=== PATIENT | male | born 1985 | race African-American/Black ===

== ENCOUNTER 2024-05-23 16:49 | Inpatient (IN) | payer OTHER, SELFPAY ==
[2024-05-23 13:40] VITALS: BMI 29.3
[2024-05-23 13:46] VITALS: BP 148/78
[2024-05-23] MEDS: ATIVAN 1 MG IV (13:58)
[2024-05-23] MEDS: HALDOL 2.5 MG IM (13:59)
[2024-05-23 14:00] VITALS: BP 128/66
[2024-05-23] MEDS: NSS 1000 IV ×2 (14:00→18:37)
[2024-05-23] MEDS: OFIRMEV 1000 MG IV (14:06)
[2024-05-23 14:12] LABS: % Basophils 0.3 % (0-2); % Immature Granulocytes 0.6 % (0-0.5); % Lymphocytes 2.6 % (20.5-51.1); % Neutrophils 88.5 % (42.2-75.2); Absolute Basophils 0.1 10^3/uL (0-0.2); Absolute Immature Granulocytes 0.1 10^3/uL (0-0.05); Absolute Lymphocytes 0.5 10^3/uL (1.2-3.4); Absolute Monocytes 1.6 10^3/uL (0.1-0.6); Hemoglobin 12.2 g/dL (13.0-18.0); Mean Corp Hgb Conc. 34.9 g/dL (33.0-37.0); Mean Corpuscular Hgb 29.4 pg (27.0-31.0); Mean Corpuscular Volume 84.3 fL (80.0-94.0); Mean Platelet Volume 10.6 fL (7.4-10.4); Nucleated Red Blood Cells % 0 % (-); Platelet Count 249 10^3/uL (130-400); Red Blood Cell Count 4.15 10^6/uL (4.70-6.10); Red Cell Dist. Width 12.8 % (11.5-14.5); White Blood Cell Count 20.3 10^3/uL (4.8-10.8)
[2024-05-23 14:24] LABS: Lactic Acid 2.5 mmol/L (0.7-2.0)
[2024-05-23 14:24] LABS: ALT (SGPT) 133 U/L (0-50); AST (SGOT) 248 U/L (17-59); Albumin 4.3 g/dl (3.5-5.0); Alkaline Phosphatase 61 U/L (38-126); Blood Urea Nitrogen 33 mg/dl (9-20); Calcium 9.3 mg/dl (8.4-10.2); Carbon Dioxide 23 mmol/L (22-30); Chloride 100 mmol/L (98-107); Estimated Creatinine Clearance 83 ml/min; Glucose 83 mg/dl (70-99); Potassium 4.3 mmol/L (3.5-5.1); Sodium 139 mmol/L (135-145); Total Bilirubin 1.8 mg/dl (0.2-1.3); Total Protein 6.7 g/dl (6.3-8.2); eGFR > 60.00
[2024-05-23 14:54] LABS: COVID-19 Antigen Negative (Negative)
[2024-05-23 15:00] VITALS: BP 119/62
--- NOTE | 2024-05-23 15:01 | ED.GENMED ---
History of Present Illness
<Suleman Miranda Jr., PA-C - Last Filed: 05/27/24 15:01>
General
Chief Complaint: Change in Mental Status
Source: police
Exam Limitations: clinical condition and altered mental status
Time Seen by Provider: 05/23/24 13:57
Nursing documentation reviewed up to this point in time: agreed with
History of Present Illness
History of Present Illness:
39-year-old male coming from long term with altered mental status. No significant medical history is known about the patient. Apparently has been acting very odd since arrival to the long term yesterday has been drinking out of his toilet and drinking
his own urine. He otherwise has not been responding or interacting appropriately per staff. They did notice some swelling to his right hand and left ankle otherwise.
Review of Systems
<Suleman Miranda Jr., PA-C - Last Filed: 05/27/24 15:01>
Review of Systems
Unable to obtain full review of systems at this time due to: other (Current medical state)
All Other Systems: ROS reviewed and negative except as documented in HPI and ROS
Phy Exam
<Suleman Miranda Jr., PA-C - Last Filed: 05/27/24 15:01>
Physical Exam
Physical Exam:
GENERAL: Not responding verbally rejecting to pain airways protected
EYE: pupils equal and reactive
NECK: Supple, no significant adenopathy.
ENT: o/p clr, mmm.
CARDIAC: Regular rate and rhythm .
LUNGS: Clear breath sounds bilaterally, no acute respiratory distress, no wheezes/rales/rhonchi
ABDOMEN: Soft,
NEUROLOGICAL: Not alert or oriented but patient is awake
SKIN: Redness and warmth to his right hand extending to the proximal forearm as well as the left ankle extending to the distal morgan region, otherwise skin is warm and dry, skin intact.
MUSCULOSKELETAL: well perfused.
Sepsis
<Suleman Miranda Jr., PA-C - Last Filed: 05/27/24 15:01>
Sepsis Screening
Sepsis Assessment: Sepsis
Sepsis Screen
Sepsis Screen: Sepsis
Date: 05/27/24
Time: 15:01
Course
<Suleman Miranda Jr., PA-C - Last Filed: 05/27/24 15:01>
Orders/Labs/Results
Orders:
Orders
05/23/24 13:38
EKG- Treatment ONCE
05/23/24 13:39
CBC/With Diff [Complete Blood Count/With Diff] Urgent
CMP [Comprehensive Metabolic Panel] Urgent
Creatine Phosphokinase Urgent
05/23/24 13:54
Haloperidol Lactate [Haldol] 5 mg .ROUTE .STK-MED ONE
Lorazepam [Ativan] 2 mg .ROUTE .STK-MED ONE
05/23/24 13:55
Lactic Acid Urgent
05/23/24 13:57
CT Head W/o Iv Contrast Urgent
Comment:
Reason For Exam: aMS
Haloperidol Lactate [Haldol] 2.5 mg IM NOW STA
Lorazepam [Ativan] 1 mg IV NOW STA
Chest X-ray Portable [CR Chest Portable - 1 View] Urgent
Comment:
Reason For Exam: fever
Reason Study Needs to be Portable: Patient Unstable
05/23/24 13:58
0.9% Sodium Chloride 1000 ml [Nss] 1,000 ml IV BOLUS
05/23/24 14:03
Blood Culture Routine
AYAAN Source: Blood/Venous
Specimen Description:
Blood Culture Urgent
AYAAN Source: Blood/Venous
Specimen Description:
05/23/24 14:05
Acetaminophen 1000MG/100Ml [Ofirmev] 1,000 mg in 100 ml .ROUTE .STK-MED
05/23/24 14:06
Acetaminophen 1000MG/100Ml [Ofirmev] 1,000 mg IV NOW STA
05/23/24 14:07
COVID-19 Antigen Urgent
Source: Nasal Swab
Influenza A+B Rapid Molecular Urgent
AYAAN Source: Nasal Swab
Specimen Description:
05/23/24 14:13
Haloperidol Lactate [Haldol] 2.5 mg IM NOW STA
Lorazepam [Ativan] 1 mg IV NOW STA
05/23/24 14:53
Cefepime HCl [Maxipime] 2,000 mg IV NOW STA
05/23/24 Dinner
Regular
At Your Request: Full Participation
05/23/24 15:09
Urinalysis Reflex To Culture Urgent
Date Specimen was Collected: 05/23/24
Time Specimen was Collected: 14:36
Urine Drug Abuse Screen Urgent
Date Specimen was Collected: 05/23/24
Time Specimen was Collected: 14:36
Urine Microscopic Reflex Cult Urgent
05/23/24 15:32
Vancomycin [Vancocin] 2,000 mg 0.9% Sodium Chloride 500 ml [Nss] 500 ml IV NOW
05/23/24 16:27
Admit/Transfer Patient As Directed
Co-Sign Provider:
Level of Care: Inpatient admission
Assign to:: Telemetry
Physician / Group: Joseph
Diagnosis: Sepsis
Reason for Telemetry: Arrhythmia
Date to Stop Telemetry: 05/26/24
Time to Stop Telemetry: 11:00
Reason for Hospitalization: IV abx
Expected length of stay greater than two midnights?: Yes
ELOS- Estimated Length of Stay in days: 3
I certify the patient meets the requirements for IP care: Yes
Code Status As Directed
Resuscitation Status: Full Code
PRN Pain Medication Management As Directed
May give lesser potent ordered pain med per pt: Yes
preference::
Protocol:: Medication orders for pain may be administered in a
manner that supports deferring to patient preference
when the pt is:
- Requesting an ordered lesser potent pain medication.
Least to most potent pain medications are defined
as: acetaminophen < NSAID < tramadol < opioids
(morphine, oxycodone, hydromorphone).
- Requesting a lesser dose of the same medication IF
ORDERED.
- Requesting a less intrusive route of administration
if both routes are prescribed by the provider (PO <
IV).
05/23/24 17:28
0.9% Sodium Chloride 1000 ml [Nss] 1,000 ml IV 125 mls/hr
Acetaminophen [Tylenol/Feverall] 650 mg RECTAL Q4HPRN PRN
Acetaminophen [Tylenol] 650 mg PO Q4HPRN PRN
Haloperidol Lactate [Haldol] 1 mg IV Q4HPRN PRN
05/23/24 17:28
Activity As Directed
Activity Level: Bedrest
Intake/ Output As Directed
Frequency: Per unit guidelines
Vital Signs As Directed
Frequency: Per unit guidelines
Weight As Directed
Frequency: Once
DX Deep Vein Thrombosis Video Routine
05/23/24 18:00
Enoxaparin Sodium [Lovenox] 40 mg SC QPM
05/23/24 19:51
Lactic Acid Routine
05/23/24 22:00
Quetiapine Fumarate [Seroquel] 75 mg PO HS
05/24/24 00:00
Cefepime HCl [Maxipime] 2,000 mg IV Q8H
05/24/24 05:52
Complete Blood Count/No Diff IN AM
Comprehensive Metabolic Panel IN AM
05/26/24 11:00
DC Protocol for Telemetry ONCE
Abnormal Lab Results
05/23/24 05/23/24 05/23/24
13:39 13:55 15:09
WBC 20.3 H 10^3/uL
(4.8-10.8)
RBC 4.15 L 10^6/uL
(4.70-6.10)
Hgb 12.2 L g/dL
(13.0-18.0)
Hct 35.0 L %
(39.0-52.0)
MPV 10.6 H fL
(7.4-10.4)
Abs Immat Gran (auto) 0.1 H 10^3/uL
(0-0.05)
Absolute Neuts (auto) 18.0 H 10^3/uL
(1.4-6.5)
Absolute Lymphs (auto) 0.5 L 10^3/uL
(1.2-3.4)
Absolute Monos (auto) 1.6 H 10^3/uL
(0.1-0.6)
Immature Gran % 0.6 H %
(0-0.5)
Neutrophils % 88.5 H %
(42.2-75.2)
Lymphocytes % 2.6 L %
(20.5-51.1)
BUN 33 H mg/dl
(9-20)
Lactic Acid 2.5 H mmol/L
(0.7-2.0)
Total Bilirubin 1.8 H mg/dl
(0.2-1.3)
AST 248 H U/L
(17-59)
ALT 133 H U/L
(0-50)
Creatine Kinase 9897 H U/L
(55-170)
Urine Ketones 3+ A
(Negative)
Ur Occult Blood Reflex 2+ A
(Negative)
U Marijuana (THC) Screen Positive H
(Negative)
05/23/24 13:39
05/23/24 13:39
Vital Signs
Initial and Last Documented VS:
Initial Vital Signs
Temp Pulse Resp Pulse Ox
100.7 F H 132 17 99
05/23/24 13:40 05/23/24 13:40 05/23/24 13:40 05/23/24 13:40
Last Documented Vital Signs
Temp Pulse Resp BP Pulse Ox
97.8 F 98 16 125/83 100
05/27/24 14:05 05/27/24 14:05 05/27/24 14:05 05/27/24 14:05 05/27/24 14:05
<Genaro Garsia, DO - Last Filed: 05/23/24 15:27>
Orders/Labs/Results
Orders:
Orders
05/23/24 13:38
EKG- Treatment ONCE
05/23/24 13:39
CBC/With Diff [Complete Blood Count/With Diff] Urgent
CMP [Comprehensive Metabolic Panel] Urgent
Creatine Phosphokinase Urgent
05/23/24 13:54
Haloperidol Lactate [Haldol] 5 mg .ROUTE .STK-MED ONE
Lorazepam [Ativan] 2 mg .ROUTE .STK-MED ONE
05/23/24 13:55
Lactic Acid Urgent
05/23/24 13:57
CT Head W/o Iv Contrast Urgent
Comment:
Reason For Exam: aMS
Haloperidol Lactate [Haldol] 2.5 mg IM NOW STA
Lorazepam [Ativan] 1 mg IV NOW STA
Chest X-ray Portable [CR Chest Portable - 1 View] Urgent
Comment:
Reason For Exam: fever
Reason Study Needs to be Portable: Patient Unstable
05/23/24 13:58
0.9% Sodium Chloride 1000 ml [Nss] 1,000 ml IV BOLUS
05/23/24 14:03
Blood Culture Routine
AYAAN Source: Blood/Venous
Specimen Description:
Blood Culture Urgent
AYAAN Source: Blood/Venous
Specimen Description:
05/23/24 14:05
Acetaminophen 1000MG/100Ml [Ofirmev] 1,000 mg in 100 ml .ROUTE .STK-MED
05/23/24 14:06
Acetaminophen 1000MG/100Ml [Ofirmev] 1,000 mg IV NOW STA
05/23/24 14:07
COVID-19 Antigen Urgent
Source: Nasal Swab
Influenza A+B Rapid Molecular Urgent
AYAAN Source: Nasal Swab
Specimen Description:
05/23/24 14:13
Haloperidol Lactate [Haldol] 2.5 mg IM NOW STA
Lorazepam [Ativan] 1 mg IV NOW STA
05/23/24 14:53
Cefepime HCl [Maxipime] 2,000 mg IV NOW STA
05/23/24 Dinner
Regular
At Your Request: Full Participation
05/23/24 15:09
Urinalysis Reflex To Culture Urgent
Date Specimen was Collected: 05/23/24
Time Specimen was Collected: 14:36
Urine Drug Abuse Screen Urgent
Date Specimen was Collected: 05/23/24
Time Specimen was Collected: 14:36
Urine Microscopic Reflex Cult Urgent
05/23/24 15:32
Vancomycin [Vancocin] 2,000 mg 0.9% Sodium Chloride 500 ml [Nss] 500 ml IV NOW
05/23/24 16:27
Admit/Transfer Patient As Directed
Co-Sign Provider:
Level of Care: Inpatient admission
Assign to:: Telemetry
Physician / Group: Joseph
Diagnosis: Sepsis
Reason for Telemetry: Arrhythmia
Date to Stop Telemetry: 05/26/24
Time to Stop Telemetry: 11:00
Reason for Hospitalization: IV abx
Expected length of stay greater than two midnights?: Yes
ELOS- Estimated Length of Stay in days: 3
I certify the patient meets the requirements for IP care: Yes
Code Status As Directed
Resuscitation Status: Full Code
PRN Pain Medication Management As Directed
May give lesser potent ordered pain med per pt: Yes
preference::
Protocol:: Medication orders for pain may be administered in a
manner that supports deferring to patient preference
when the pt is:
- Requesting an ordered lesser potent pain medication.
Least to most potent pain medications are defined
as: acetaminophen < NSAID < tramadol < opioids
(morphine, oxycodone, hydromorphone).
- Requesting a lesser dose of the same medication IF
ORDERED.
- Requesting a less intrusive route of administration
if both routes are prescribed by the provider (PO <
IV).
05/23/24 17:28
0.9% Sodium Chloride 1000 ml [Nss] 1,000 ml IV 125 mls/hr
Acetaminophen [Tylenol/Feverall] 650 mg RECTAL Q4HPRN PRN
Acetaminophen [Tylenol] 650 mg PO Q4HPRN PRN
Haloperidol Lactate [Haldol] 1 mg IV Q4HPRN PRN
05/23/24 17:28
Activity As Directed
Activity Level: Bedrest
Intake/ Output As Directed
Frequency: Per unit guidelines
Vital Signs As Directed
Frequency: Per unit guidelines
Weight As Directed
Frequency: Once
DX Deep Vein Thrombosis Video Routine
05/23/24 18:00
Enoxaparin Sodium [Lovenox] 40 mg SC QPM
05/23/24 19:51
Lactic Acid Routine
05/23/24 22:00
Quetiapine Fumarate [Seroquel] 75 mg PO HS
05/24/24 00:00
Cefepime HCl [Maxipime] 2,000 mg IV Q8H
05/24/24 05:52
Complete Blood Count/No Diff IN AM
Comprehensive Metabolic Panel IN AM
05/26/24 11:00
DC Protocol for Telemetry ONCE
Abnormal Lab Results
05/23/24 05/23/24 05/23/24
13:39 13:55 15:09
WBC 20.3 H 10^3/uL
(4.8-10.8)
RBC 4.15 L 10^6/uL
(4.70-6.10)
Hgb 12.2 L g/dL
(13.0-18.0)
Hct 35.0 L %
(39.0-52.0)
MPV 10.6 H fL
(7.4-10.4)
Abs Immat Gran (auto) 0.1 H 10^3/uL
(0-0.05)
Absolute Neuts (auto) 18.0 H 10^3/uL
(1.4-6.5)
Absolute Lymphs (auto) 0.5 L 10^3/uL
(1.2-3.4)
Absolute Monos (auto) 1.6 H 10^3/uL
(0.1-0.6)
Immature Gran % 0.6 H %
(0-0.5)
Neutrophils % 88.5 H %
(42.2-75.2)
Lymphocytes % 2.6 L %
(20.5-51.1)
BUN 33 H mg/dl
(9-20)
Lactic Acid 2.5 H mmol/L
(0.7-2.0)
Total Bilirubin 1.8 H mg/dl
(0.2-1.3)
AST 248 H U/L
(17-59)
ALT 133 H U/L
(0-50)
Creatine Kinase 9897 H U/L
(55-170)
Urine Ketones 3+ A
(Negative)
Ur Occult Blood Reflex 2+ A
(Negative)
U Marijuana (THC) Screen Positive H
(Negative)
05/23/24 13:39
05/23/24 13:39
Vital Signs
Initial and Last Documented VS:
Initial Vital Signs
Temp Pulse Resp Pulse Ox
100.7 F H 132 17 99
05/23/24 13:40 05/23/24 13:40 05/23/24 13:40 05/23/24 13:40
Last Documented Vital Signs
Temp Pulse Resp BP Pulse Ox
97.8 F 98 16 125/83 100
05/27/24 14:05 05/27/24 14:05 05/27/24 14:05 05/27/24 14:05 05/27/24 14:05
<Suleman Miranda Jr., PA-C - Last Filed: 05/27/24 15:01>
MDM/Problems Addressed
MDM/Problems Addressed:
39-year-old male presenting to the emergency department today with long term guards with concerns of altered mental status drinking his own urine in his cell they have they are unsure of any specific medical conditions or medical history or daily
medications. They believe he may be schizophrenic. Upon arrival he is agitated not giving any further history. Initially tachycardic was given fluids started on IV antibiotics concerning elevated white count and febrile. Patient does have
significant redness and swelling to the right hand extending into the forearm and is rejecting the pain when palpating the area. Concern for cellulitis. Potentially patient source of infection. Otherwise patient will need to be admitted for
further monitoring and treatment.
<Suleman Miranda Jr., PA-C - Last Filed: 05/27/24 15:01>
*Critical Care Note
Total Time (30-74mins, 75-104mins- exclusive of procedures): Not Applicable
ED Attending Note
<Suleman Miranda Jr., PA-C - Last Filed: 05/27/24 15:01>
-
Portions of this chart may have been created with voice recognition software.� Occasional wrong word or��sound alike� substitutions may have occurred due to the inherent limitations of voice recognition software.
<Genaro Garsia, DO - Last Filed: 05/23/24 15:27>
ED Attending Note
Patient seen and examined by attending physician: Yes
I performed the substantive portion of visit, reviewed & personally made and approve the management plan that is documented in note by myself or GERARD.: Yes
ED Attending Note:
I have seen and evaluated the patient with a [id number] encounter. I have spoken to the advance practicer provider and involved in the medical history, the physical exam, medical decision making.
Evaluation and management service: agree unless noted differently below.
Results interpretation: agree unless noted differently below.
Focused HPI: 39-year-old male presenting from long term for evaluation of altered mental status. Patient could be febrile. Per the long term guards, he came to the facility last night. This change appears to be acute
Physical exam: Patient initially came in agitated. He eventually received sedation. He has no meningismus. Abdomen soft. Tenderness localized to right arm where there is signs of cellulitis
Medical Decision Making: Difficult to decipher whether this was excited delirium and hypothermia or true infection. Regardless, patient started antibiotics to cover the hand cellulitis. Will admit given his agitation and altered mental status
Discharge Plan
Departure
Patient Disposition: Admit
Date of Disposition: 05/23/24
Time of Disposition: 15:25
Admit to: IMU
Admit to doctor: Joseph
Presentation/result/management discussed w/ accepting MD/DO: Hospitalist
Patient with high blood pressure during this ER visit?: No
Condition: Fair
Covid-19: Not Applicable
Discharge Problem:
AMS (altered mental status), Sepsis, Cellulitis of arm, right
Interventions
Interventions:
*Risk Screen - Suicide Last Done: 05/23/24 13:40
*General Assessment Last Done: 05/23/24 13:40
*Neglect/Abuse Screening Last Done: 05/23/24 13:40
ED- Fall Risk Assessment Last Done: 05/23/24 13:45
*ED COVID-19 Vaccine History Last Done: 05/23/24 14:37
*Nursing Disposition Last Done: 05/23/24 17:20
ED- Neurological Assessment Last Done: 05/23/24 13:45
ED- Cardiac Assessment Last Done: 05/23/24 13:45
Discharge Date and Time
Discharge Date/Time: 05/23/24 17:20
[2024-05-23 15:17] LABS: Urine Albumin Trace (Neg - Trace); Urine Bilirubin Negative (Negative); Urine Character Clear (Clear); Urine Color Yellow; Urine Glucose Negative (Negative); Urine Ketone 3+ (Negative); Urine Leukocyte Negative (Negative); Urine Nitrite Negative (Negative); Urine Occult Blood 2+ (Negative); Urine Specific Gravity 1.025 (<1.030); Urine Urobilinogen Negative (Neg - 1+)
[2024-05-23] MEDS: MAXIPIME 2000 MG IV (15:27)
[2024-05-23 15:28] LABS: Urine Red Blood Cell 0-2 /HPF (0-2)
--- NOTE | 2024-05-23 15:58 | HPS.HSE ---
Family Physician
-
Family Physician: Facility [facility]
Chief Complaint
-
Change in mental status
History of Present Illness
Patient is a 39 y/o male with unknown past medical history who presents from custodial with an acute change in mental status. Patient arrived at [facility] on May 20. Since that time has been exhibiting odd behaviors. Today he was
found by guards to be drinking out of the toilet, and drinking his own urine. He appeared to be reacting to internal stimuli. He received Versed from EMS, as well as Haldol and Ativan in the ED due to agitation, and upon my evaluation is unable to
provide any history. Upon arrival to the emergency department he was found to have a fever, and blood work revealed at leukocytosis. Hospitalists group was asked to evaluate the patient for admission to the hospital.
Medical History
Past Medical History
Past Medical History: Reports Other (Unable to obtain)
Past Surgical History: Reports Other (Unable to obtain)
Social History
Unable to obtain full social history at this time due to: Patient Non-verbal (Patient non-verbal with me)
Family History
Family History: Unable to Obtain
Allergies / Home Medications
Allergies reflects when Allergies were last updated in [employer].
Home Medications with original date entered in [employer]
Allergy/Medication List:
Allergies
Allergy/AdvReac Type Severity Reaction Status Date / Time
No Known Allergies Allergy Unverified 05/23/24 13:57
Home Medications
quetiapine 50 mg tablet 75 mg PO HS 05/23/24
Review of Systems
-
Unable to obtain full review of systems at this time due to: Patient Non-verbal
Physical Exam
Vital Signs
Vital Signs
Temp Pulse Resp BP Pulse Ox
100.7 F H 114 40 128/66 98
05/23/24 13:40 05/23/24 14:30 05/23/24 14:30 05/23/24 14:00 05/23/24 13:44
Physical Exam
General: Well Developed and Well Nourished
HEENT: Anicteric and Moist mucous membranes
Respiratory: Clear and Non Labored Respirations
Cardiac: S1/S2, Regular Rhythm and Tachycardia
GI: Soft and Non Tender
Rectal: Deferred by Provider
Musculoskeletal: No Clubbing, No Cyanosis and Other (Edema of Right Hand, and Left Foot/Ankle)
Skin: Warm, Dry and Other (Right hand erythema expending up to mid forearm with increased warmth to touch; Left foot and ankle also with increased warmth compared to right ankle)
Neuro: Other (Patient initially calm with eyes closed, when I attempt to wake him he becomes very restless and not following commands)
Laboratory Results
-
05/23/24 13:39
05/23/24 13:39
Laboratory Results
Lactic Acid Cancelled 05/23/24 13:57
Total Bilirubin 1.8 mg/dl (0.2-1.3) H 05/23/24 13:39
AST 248 U/L (17-59) H 05/23/24 13:39
ALT 133 U/L (0-50) H 05/23/24 13:39
Alkaline Phosphatase 61 U/L (38-126) 05/23/24 13:39
Data Reviewed
-
Lab Data: Labs Reviewed by me
Impression/Plan
-
Sepsis appears to be secondary to right arm cellulitis, possible left ankle cellulitis
-Continue vancomycin and cefepime
-Await blood cultures
Altered Mental Status, possible TME from infection vs chronic psychiatric illness
-Consult Psych
-Continue Seroquel at bedtime
-Continue Haldol prn for agitation
Abnormal LFTS
-Check Hepatitis Labs
-Check Abd US
-Recheck LFTs in AM
DVT proph: Lovenox
Code Status: Full Code
[2024-05-23] MEDS: VANCOCIN 540 MG IV (16:17)
[2024-05-23 16:22] LABS: Amphetamines Negative (Negative); Barbiturates Negative (Negative); Benzodiazepines Negative (Negative); Buprenorphine Negative (Negative); Cocaine Negative (Negative); Marijuana Positive (Negative); Methadone Negative (Negative); Methamphetamines Negative (Negative); Opiates Negative (Negative); Phencyclidine Negative (Negative); Tricyclic Antidepressants Negative (Negative)
--- NOTE | 2024-05-23 16:59 | W.PN.UPDATE ---
Addendum entered and electronically signed by Sean Ruiz MD 05/23/24 22:52:
CK of 9800 indicating rhabdomyolysis likely explaining transaminitis. IV fluid rate increased. Recheck CK.
Original Note:
Update Note
Progress Note Update
This is an addendum to the H&P written by Soraya Contreras on 05/23/2024. Patient seen and examined independently with PA.
39-year-old male medical history unknown presenting from intermediate, for altered mental status. He has been acting odd/drinking all the toilet drinking his own urine, walking around naked and responding to internal stimuli and reaching for things. He
was noted to have right forearm and hand swelling and left ankle swelling, redness.
Patient is febrile, tachycardic with significant leukocytosis. He is septic secondary to right upper extremity/left lower extremity cellulitis.
Labs also show lactic acidosis, transaminitis. Urinalysis unremarkable. UDS positive for marijuana. Check hepatitis panel, CK level. Check liver ultrasound.
Patient with likely schizophrenia. Continue Seroquel. As needed Haldol. Psychiatry consulted. CT head shows no acute abnormality.
[2024-05-23 17:46] LABS: Creatine Phosphokinase 9897 U/L (55-170)
[2024-05-23 17:49] VITALS: BP 119/83
[2024-05-23] MEDS: LOVENOX 40 MG SC (18:55)
[2024-05-23 19:20] VITALS: BP 131/65
--- NOTE | 2024-05-23 19:58 | PTCARENOTE ---
Pt admitted to rm 335 from ED. Pulled over to bed from stretcher. IV Vanco infusing via LFA at time of admission, fluids continued following as ordered. Pt almost lethargic/drowsy, answering occasional yes/no questions. At times also mumbling
nonsensical conversation to himself. VSS. 2 Unable to answer any admission or assessment questions. 2 [facility] guards present and able to assist with some questions, patient shackled to bed. Blisters noted to b/l heels - skin prep applied. Tele box
placed, EKG completed - ST on monitor.
[2024-05-23 20:10] LABS: Lactic Acid 1.8 mmol/L (0.7-2.0)
[2024-05-23] MEDS: VANCOCIN 275 MG IV (21:03)
[2024-05-23] MEDS: SEROQUEL 75 MG PO (21:44)
[2024-05-23 23:06] VITALS: BP 120/56
[2024-05-23] MEDS: OFIRMEV 100 IV (23:17)
[2024-05-24] VITALS (7 sets, daily range): BP systolic 110–143; BP diastolic 58–94
[2024-05-24] MEDS: STERILE WATER FOR INJECTION 10 ML IV ×3 (00:07→17:05)
[2024-05-24] MEDS: MAXIPIME 2000 MG IV ×3 (00:11→17:05)
--- NOTE | 2024-05-24 00:26 | PTCARENOTE ---
Pt. HR sustaining 120s-130s on tele monitor. NICKI Rollins notified. Pt. temp 103.1. New order for offirmev. See MAR. Plan of care ongoing.
[2024-05-24] MEDS: NSS 1000 IV ×3 (01:27→12:43)
[2024-05-24 06:27] LABS: Hematocrit 34.3 % (39.0-52.0); Hemoglobin 11.8 g/dL (13.0-18.0); Mean Corp Hgb Conc. 34.4 g/dL (33.0-37.0); Mean Corpuscular Hgb 29.9 pg (27.0-31.0); Mean Corpuscular Volume 87.1 fL (80.0-94.0); Mean Platelet Volume 10.8 fL (7.4-10.4); Platelet Count 195 10^3/uL (130-400); Red Blood Cell Count 3.94 10^6/uL (4.70-6.10); Red Cell Dist. Width 12.8 % (11.5-14.5); White Blood Cell Count 12.8 10^3/uL (4.8-10.8)
--- NOTE | 2024-05-24 06:41 | W.PN.UPDATE ---
Update Note
Progress Note Update
T to 103.1 overnight with tachycardia. Ofirmiv x1, Vancomycin and Cefepime continue. T improved to 99 this morning.
[2024-05-24 06:44] LABS: ALT (SGPT) 111 U/L (0-50); AST (SGOT) 158 U/L (17-59); Albumin 3.1 g/dl (3.5-5.0); Alkaline Phosphatase 57 U/L (38-126); Blood Urea Nitrogen 18 mg/dl (9-20); Calcium 8.1 mg/dl (8.4-10.2); Carbon Dioxide 24 mmol/L (22-30); Chloride 103 mmol/L (98-107); Estimated Creatinine Clearance 108 ml/min; Glucose 102 mg/dl (70-99); Potassium 4.1 mmol/L (3.5-5.1); Sodium 137 mmol/L (135-145); Total Protein 5.6 g/dl (6.3-8.2); eGFR > 60.00
[2024-05-24 07:03] LABS: Creatine Phosphokinase 5583 U/L (55-170)
[2024-05-24 07:09] LABS: TSH Reflex To Free T4 0.36 uIU/ml (0.47-4.68)
[2024-05-24 07:10] LABS: Hepatitis B Surface Antigen Negative (Negative)
[2024-05-24 07:15] LABS: Hepatitis B Core Ab, IgM Negative (Negative)
[2024-05-24 07:28] LABS: Hepatitis B Core Ab, Total Negative (Negative); Hepatitis B Surface Antibody Positive; Hepatitis C Antibody Negative (Negative)
[2024-05-24 07:39] LABS: Hepatitis A Antibody, Total Positive (Negative)
--- NOTE | 2024-05-24 08:24 | PHA.VAN.FU ---
Vancomycin Assessment / Plan
- Assessment
Renal Function: SCR Decreasing
WBC's are: Trending Down
Concomitant Antimicrobials: cefepime
- Dosing Plan
Adjust Regimen to: Vanc 1500mg Q12H starting at 1800
New Regimen Predicts: AUC (514), Peak (33.3), Trough (12.4)
Dosing Comments: patient with improvement in SCR
- Monitoring Plan
No level(s) ordered at this time: consider levels in next few days
- Follow Up
Pharmacy will continue to follow.
Vancomycin Follow UP
- -
Patient Age: 39
Patient Sex: Male
Vancomycin Day #: 2
Indication: Skin And Soft Tissue
Requesting Provider: Cornelia Contreras
Pertinent Antimicrobial Allergies:
NKDA
Height / Weight:
Height 5 ft 11 in
Actual Weight 95.254 kg
- Vital Signs / Lab Results
Temp Pulse Resp BP Pulse Ox
99.1 F 107 16 118/64 100
05/24/24 08:05 05/24/24 08:05 05/24/24 08:05 05/24/24 08:05 05/24/24 08:05
Lab Results - Hematology
05/23/24 05/24/24
13:39 05:52
WBC 20.3 H 12.8 H
Lab Results - Chemistry
05/23/24 05/24/24
13:39 05:52
BUN 33 H 18
Creatinine 1.3 1.0
Estimated Creat Clear 83 108
Albumin 4.3 3.1 L
05/23/24 05/23/24 05/23/24
13:55 13:57 19:51
Lactic Acid 2.5 H Cancelled 1.8
Lab Results - Urine
05/23/24
15:09
Urine Nitrite (Reflex) Negative
Leukocyte Esterase Rfl Negative
Microbiology Results
05/23/24 14:07 Influenza Types A & B (LELA) - Final
Nasal Swab Negative for Influenza A & B, NAAT
Negative results must be combined with clinical observations
and patient history.
Nucleic Acid Amplification test (NAAT)performed on the
[employer] platform.
[2024-05-24] MEDS: VANCOCIN 275 MG IV (09:21)
--- NOTE | 2024-05-24 11:56 | CM ---
Patient admitted via ED; from [facility]
Chart reviewed: Altered Mental Status; Cellulitis R Arm; febrile overnight w/ Tachycardia; Temp 99 this AM.
Continue to follow and provide updates to [facility]
--- NOTE | 2024-05-24 13:04 | CON.NEURO ---
Consultation
Order
Date of Consultation: 05/24/24
Requesting Provider: Deondre Ballesteros MD
Reason for Consult: encephalopathy
CC: none
HPI: 39-year-old right-handed man who presented to [facility] on 05/23/2024 from [facility] alf with change in behavior. According to correctional guard the patient was found on his bed naked and urinating.
At this time it is still unclear of why he was not present 2 days ago. Mr. Joe does not recall the reasons why he was in the alf. He states that he recalls paying for the next week in the hotel that he was living at.
ER VS: BP 148/78, HR 132, Temperature�38.2-39.5 C
PDMP:no Rxed meds
Labs:labs: WBCs�12.3�12.8, absolute lymphocyte count�0.5, positive THC, ua-positive for ketones, blood; AST�2 48�1 58, ALT 133�111, creatinine kinase 98 97�55 83, free T4�normal, lactic acid 2.5�1.8,
EKG: sinus tachy, QTc Int : [address] head�unremarkable.
Mr. Joe was started on Vancomycin and Cefepime.
PMH: cannabis addiction
PSH: none
SH: collage graduate with a degree in [employer], cannabis 0.5 mg several times a week; denied ETOH use
All:NKDA
ROS: Positive for leg edema, encephalopathy, imbalance.
General: handcuffed. Tremulous.
Cardio: Tachycardic, right more than left leg edema. Left arm edema.
Neuro:
Mental Status: Alert, oriented to self, months, year.Poor attention and mildly impaired comprehension. FOllows requests across midline. No aphasia or hemineglect.
Cranial Nerves: Pupils are equally round and reactive to light. EOMs full. Visual johnson full to confrontation. No ptosis. No nystagmus. Face symmetric. Normal hearing AU. The palate elevated well. SCMs and traps 5/5. Tongue midline. No
dysarthria.
Motor: All limbs are antigravity.
Reflexes: No clonus at the ankles.
Sensory: Limited exam due to poor attention.
Coordination: Limited exam due to restraints.
Gait: deferred
Assessment and Plan:
I. Acute encephalopathy. Differential diagnosis includes infectious versus postictal
II. Rhabdomyolysis.
III. Fever
-Seizure precautions.
-vit B12, ammonia, CK, blood cx
-Continue Thiamine 100 mg QD IV
-Avoid medications, known to lower seizure threshold.
-Brain MRI wo mallorie
-Routine EEG
-CSF(OP/CP, cell count, protein, glucose, encephalitis panel)
-IV acyclovir until HSV PCR is negative.
-ID consult
-DVT prophylaxis.
I personally reviewed all radiology and labs along with past medical records pertinent to current medical problems. Total time spent in patient care is 60 minutes.
Thank you for allowing us to participate in the care of this patient. We will continue to follow. Please do not hesitate to contact us with any questions or concerns.
Subjective/Objective
Subjective Data
Date of Service: May 24, 2024
Objective Data
Vital Signs
Temp Pulse Resp BP Pulse Ox
38.2 C H 115 16 110/67 98
05/24/24 11:29 05/24/24 11:29 05/24/24 11:29 05/24/24 11:29 05/24/24 11:29
Lab Results
05/24/24 05:52
05/24/24 05:52
Sodium 137 mmol/L (135-145) 05/24/24 05:52
Potassium 4.1 mmol/L (3.5-5.1) 05/24/24 05:52
BUN 18 mg/dl (9-20) 05/24/24 05:52
Glucose 102 mg/dl (70-99) H 05/24/24 05:52
Calcium 8.1 mg/dl (8.4-10.2) L 05/24/24 05:52
Ur Buprenorphine Negative (Negative) 05/23/24 15:09
Patient Allergies
No Known Allergies Allergy (Unverified 05/23/24 13:57)
Medications
-
Active Medications
Generic Name Dose Route Start Last Admin
Trade Name Freq PRN Reason Stop Dose Admin
Acetaminophen 650 mg 05/23/24 17:28
Acetaminophen 325 Mg Tablet PO 06/20/24 17:27
Q4HPRN PRN
GRANT/mild pain/temp > 100.4 F
Cefepime HCl 2,000 mg 05/24/24 00:00 05/24/24 09:20
Cefepime Hcl 2,000 Mg/12.5 Ml Vial IV 2,000 mg
Q8H PAT Administration
Enoxaparin Sodium 40 mg 05/23/24 18:00 05/23/24 18:55
Enoxaparin Sodium 40 Mg/0.4 Ml Syringe SC 06/20/24 17:59 40 mg
QPM PAT Administration
Sodium Chloride 1,000 mls @ 125 mls/hr 05/23/24 17:28 05/24/24 12:43
Nss IV 1,000 mls
.Q8H PAT Administration
Vancomycin HCl 1,500 mg/ 300 mls @ 200 mls/hr 05/24/24 18:00
Sodium Chloride 20 ml/ Sodium IV
Chloride Q12H PAT
Protocol
Sodium Chloride 0 flush 05/23/24 18:00
Sodium Chloride 0.9% (Flush) Syringe IV 06/20/24 17:59
PER PROTOCOL PAT
Sterile Water 10 ml 05/24/24 00:00 05/24/24 09:20
Sterile Water For Injection 10 Ml Vial IV 06/21/24 00:00 10 ml
Q8H PAT Administration
Home Medications
�Medication �Instructions �Recorded
quetiapine 50 mg tablet 75 mg PO HS Sleep 05/23/24
Vital Signs and Labs
-
Vital Signs and Labs:
Vital Signs
Temp Pulse Resp BP Pulse Ox
38.2 C H 115 16 110/67 98
05/24/24 11:29 05/24/24 11:29 05/24/24 11:29 05/24/24 11:29 05/24/24 11:29
Lab Results
05/24/24 05:52
05/24/24 05:52
Sodium 137 mmol/L (135-145) 05/24/24 05:52
Potassium 4.1 mmol/L (3.5-5.1) 05/24/24 05:52
BUN 18 mg/dl (9-20) 05/24/24 05:52
Glucose 102 mg/dl (70-99) H 05/24/24 05:52
Calcium 8.1 mg/dl (8.4-10.2) L 05/24/24 05:52
Ur Buprenorphine Negative (Negative) 05/23/24 15:09
Medications
-
Medications:
Generic Name Dose Route Start Last Admin
Trade Name Freq PRN Reason Stop Dose Admin
Acetaminophen 650 mg 05/23/24 17:28
Acetaminophen 325 Mg Tablet PO 06/20/24 17:27
Q4HPRN PRN
GRANT/mild pain/temp > 100.4 F
Cefepime HCl 2,000 mg 05/24/24 00:00 05/24/24 09:20
Cefepime Hcl 2,000 Mg/12.5 Ml Vial IV 2,000 mg
Q8H PAT Administration
Enoxaparin Sodium 40 mg 05/23/24 18:00 05/23/24 18:55
Enoxaparin Sodium 40 Mg/0.4 Ml Syringe SC 06/20/24 17:59 40 mg
QPM PAT Administration
Sodium Chloride 1,000 mls @ 125 mls/hr 05/23/24 17:28 05/24/24 12:43
Nss IV 1,000 mls
.Q8H PAT Administration
Vancomycin HCl 1,500 mg/ 300 mls @ 200 mls/hr 05/24/24 18:00
Sodium Chloride 20 ml/ Sodium IV
Chloride Q12H PAT
Protocol
Sodium Chloride 0 flush 05/23/24 18:00
Sodium Chloride 0.9% (Flush) Syringe IV 06/20/24 17:59
PER PROTOCOL PAT
Sterile Water 10 ml 05/24/24 00:00 05/24/24 09:20
Sterile Water For Injection 10 Ml Vial IV 06/21/24 00:00 10 ml
Q8H PAT Administration
Thiamine HCl 100 mg 05/24/24 14:00
Thiamine (100 Mg/Ml) 2 Ml Vial IV 05/26/24 08:01
DAILY PAT
Home Medications
-
Home Medications
quetiapine 50 mg tablet 75 mg PO HS Sleep 05/23/24
--- NOTE | 2024-05-24 15:47 | W.PN.HOSP.TC ---
Today's Communication/Plan
-
Workup for encephalopathy and sepsis.
Assessment / Plan
Assessment / Plan
Impression:
Acute encephalopathy.
Concern for sepsis
Rhabdomyolysis, nontraumatic.
Mild elevation of transaminases.
Right upper extremity cellulitis.
Plan:
Acute encephalopathy: Toxic versus infectious
Patient presents with behavioral disturbances likely hallucinations, reported possible seizure prior to hospital admission.
Exam with no focal findings.
CT scan of the head with no acute abnormalities
Urine drug screen positive for marijuana
Given persistent fever LP considered, although patient declined.
MRI of the brain
Ammonia level/trend LFTs
EEG.
Unclear why patient is on Seroquel prior to admission. Will hold to avoid oversedation
Neurology input appreciated
Considering empiric acyclovir pending MRI while patient declined LP.
Initiated on thiamine
Sepsis unclear source (fever, elevated white count, altered mental status)
Right upper extremity cellulitis
Noted CPK elevation, although clinically no evidence of compartment syndrome
CT scan with no collection.
Continue current antibiotics
ID consult
Rhabdomyolysis nontraumatic.
? Secondary to seizure.
Continue IV fluids
CPK trending down
Elevated transaminases
Ultrasound with no acute abnormalities
Ammonia level pending
Anticipated Discharge: 24 - 48 hours
Subjective/Interval History
-
Date of Service: May 24, 2024
Objective Data
-
Labs:
Laboratory Results
05/24/24 05/24/24
05:52 13:46
WBC 12.8 H
Hgb 11.8 L
Hct 34.3 L
Plt Count 195 D
PT Pending
INR Pending
Sodium 137
Potassium 4.1
Chloride 103
Carbon Dioxide 24
BUN 18
Creatinine 1.0
Glucose 102 H
Calcium 8.1 L
Total Bilirubin 1.0
AST 158 H
ALT 111 H
Alkaline Phosphatase 57
Vital Signs:
Vital Signs
Temp Pulse Resp BP Pulse Ox
98.5 F 114 22 143/58 98
05/24/24 14:14 05/24/24 14:14 05/24/24 14:14 05/24/24 14:14 05/24/24 14:14
I&O
05/23/24 05/24/24 05/25/24
06:59 06:59 06:59
Intake Total 3300 / 3300
Balance 3300 / 3300
Physical Exam
-
General: Well Developed and No Apparent Distress
HEENT: Normocephalic, Atraumatic and Moist Mucous Membranes
Respiratory: Clear to Auscultation
Cardiac: Regular Rhythm and S1/S2; Negative Murmur, Rub or Gallop
GI: Soft, Nontender, Nondistended and Normal Bowel Sounds; Negative Organomegaly
Rectal: Deferred by Provider
Musculoskeletal: No Clubbing, No Cyanosis and No Edema
Skin: Negative Rash
Neuro: Nonfocal/Grossly Intact
[2024-05-24 16:31] LABS: INR 1.31; PT 16.1 Sec (11.4-14.6)
--- NOTE | 2024-05-24 16:34 | CON.ID ---
Consultation
-
Date/Time Consultation Requested: 05/24/24 13:18
Date/Time Consultation Performed: 05/24/24 16:34
Requesting Provider: Dr Ballesteros
Performing Provider: Dr Murrieta
Reason for Consultation: AMS
Chief Complaint / Past History
Chief Complaint
AMS
History of Present Illness
Mr Joe is a 39 year old male with unknown past medical history [facility] from [facility], today 05/24 found drining from toilet, drinking his own urine and thought to be responding to internal stimuli. EMS used versed, ER
used ativan and haldol for agitation. History on arrival was limited by the condition of the patient. I saw patient on HD two. Reports only drug he uses is marijana. No history of seizures. Denies: headache, neck stiffness, sinus tenderness,
sore throat, cough, shortness of breath, nausea, vomiting, diarrhea, dysuria, new rashes or joing pains. Shows me a small wound on his forearm, superifical - without surrounding erythema, warmth, swelling or significant drainage. No pain in the
arm. Doesnt recall how he got the wound. Was recently living with mom and in hotel. Has not spent significant time outside. Doesnt recall any tick bites or insect bites. Not around any animals.
Since arrival here he has been spiking fevers to a tmax of 103.1, bp stable, wbc initially 20 now 12.8, hgb 11.8, plt 195, L shift noted, no eos present, cr 1.0, t bili 1.0, ast 158, alt 111, alk phos 57, ammonia <9, ck initially 9900 repeat 5500,
UDS + thc, hep a total ab positive, hep b s ab positive, hep C negative, HIV pending, lactic acid initially 2.5 now 1.8, CT head: no acute changes, CXR no acute process, abd US: CT arm: Slightly limited by motion artifacts. No abscess formation or
drainable collection identified. Forearm shows some soft tissue swelling and apparent mild thickening compatible with the given history of cellulitis. AXr no foregin body. MRSA screen pending, influenza negative, blood cultures x2 no growth to date
Past History
Additional Past Medical History:
cannabis use
Past Surgical History: None
Allergy History:
No Known Allergies Allergy (Unverified 05/23/24 13:57)
Medications Reviewed: Yes
Social History
Alcohol: None
Drug: Marijuana
Living: Homeless
Employment: Employed ([employer])
Family History
Family History: Not Pertinent
Review of Systems
Review of Systems
General: Fever and Chills
All systems: All other systems were reviewed and were negative
Vital Signs
Temp Pulse Resp BP Pulse Ox
101.6 F H 111 17 139/94 98
05/24/24 15:48 05/24/24 15:48 05/24/24 15:48 05/24/24 15:48 05/24/24 15:48
Physical Exam
Physical Exam
Constitutional: No Acute Distress
Cardiovascular: Regular Rate and S1/S2; Negative Murmur or Rub
Pulmonary: Clear and Symmetric; Negative Wheezes, Rales or Rhonchi
Gastrointestinal: Soft, Non Tender, Non Distended and Normal Bowel Sounds
Extremities: Other (small wound on his forearm, superficial - without surrounding erythema, warmth, swelling or significant drainage)
Skin: Warm and Dry; Negative Rash or Jaundice
Neurological: AO x 3 and Other (spells world backwards); Negative Meningeal Signs (no photo phobia no neck stiffness)
Psychological: Calm
Lab / Diagnostic Study Results
05/24/24 05:52
05/24/24 05:52
Abs Immat Gran (auto) 0.1 10^3/uL (0-0.05) H 05/23/24 13:39
Absolute Neuts (auto) 18.0 10^3/uL (1.4-6.5) H 05/23/24 13:39
Absolute Lymphs (auto) 0.5 10^3/uL (1.2-3.4) L 05/23/24 13:39
Absolute Monos (auto) 1.6 10^3/uL (0.1-0.6) H 05/23/24 13:39
Absolute Basos (auto) 0.1 10^3/uL (0-0.2) 05/23/24 13:39
Immature Gran % 0.6 % (0-0.5) H 05/23/24 13:39
Neutrophils % 88.5 % (42.2-75.2) H 05/23/24 13:39
Lymphocytes % 2.6 % (20.5-51.1) L 05/23/24 13:39
Monocytes % 8.0 % (1.7-9.3) 05/23/24 13:39
Eosinophils % 0.0 % (0-6) 05/23/24 13:39
Basophils % 0.3 % (0-2) 05/23/24 13:39
PT 16.1 Sec (11.4-14.6) H 05/24/24 16:02
INR 1.31 05/24/24 16:02
Lactic Acid 1.8 mmol/L (0.7-2.0) 05/23/24 19:51
Microbiology Results
Micro:
05/23/24 14:03 Blood Culture - Preliminary
Blood/Venous No Growth in 24 hours- Final report to follow
05/23/24 14:03 Blood Culture - Preliminary
Blood/Venous No Growth in 24 hours- Final report to follow
05/23/24 21:21 MRSA Screen - Pending
Nose
05/23/24 14:07 Influenza Types A & B (LELA) - Final
Nasal Swab Negative for Influenza A & B, NAAT
Negative results must be combined with clinical observations
and patient history.
Nucleic Acid Amplification test (NAAT)performed on the
[employer] platform.
Assessment / Plan
Encephalopathy - appears transient
- oriented, spells world backward, gives a good history and making jokes
- given rapidly improved mental status, LP not currently indicated from ID perspective
- acyclovir was not ordered earlier today and I did not start it myself at this time; I initially started doxycycline however after seeing the patient and seeing his improved mental status I have stopped it
- elevated CK is notable - will follow
- follow blood cultures
- small wound on his forearm, superficial - without surrounding erythema, warmth, swelling or significant drainage; the arm is equal in size and as warm as the CL arm. Im not convinced he has cellulitis at present
- for now will continue vancomycin; stopped cefepime
- follow up HIV screen
- follow clinically
[2024-05-24 16:41] LABS: Ammonia < 9 umol/L (9-30)
[2024-05-24] MEDS: LOVENOX 40 MG SC (17:08)
[2024-05-24] MEDS: VANCOCIN 300 ML IV (17:09)
[2024-05-24] MEDS: VANCOCIN 300 MG IV (17:09)
[2024-05-24] MEDS: THIAMINE INJECTION 100 MG IV (17:14)
[2024-05-24] MEDS: TYLENOL 650 MG PO (17:20)
[2024-05-24 17:33] LABS: HIV Combo Negative (Negative)
--- NOTE | 2024-05-24 17:39 | EEG.RPT ---
Electroencephalogram Report
Recording
Date of EE05/24/24
Type of EEG: Routine
Length of EEG recordin mins
Done with Video Recording: Yes
Patient Status: Inpatient
Recording Conditions: Moving and Combative
Hyperventilation Performed: No
Photic Stimulation Performed: Yes
Report
METHODS
A 21 channel digitized electroencephalogram was performed at [facility]. The 10/20 international system of electrode placement was used. In addition to EEG, the patient was monitored for EKG. The duration of the recording was 23 minutes.
BACKGROUND
During the awake state, with the eyes closed, the background consisted of a normal amplitude,11 Hertz posterior reactive rhythm that attenuated appropriately with eye opening. Beta activity was distributed diffusely with an anterior predominance.
There was a normal anterior-posterior voltage gradient. With eye opening the background activity changed to a low voltage mixture of alpha, beta, and occasional theta range frequencies. There were no significant asymmetries of background activity
noted. Superimposed diffuse excess beta activity was seen frequently.
PHOTIC STIMULATION
Photic stimulation using a step-peacock increase in photic frequency varying from 1-31 Hertz resulted in no driving responses but no appearance of abnormal activity.
ABNORMAL EEG ACTIVITY
This EEG is abnormal due to the presence of superimposed diffuse excess beta activity was seen frequently.
CLINICAL EVENTS
None
INTERPRETATION AND CLINICAL CORRELATION
This EEG is abnormal due to the presence of superimposed diffuse excess beta activity which was seen frequently; this can be seen due to medication side effect. The study was very limited due to the patient's frequent movement resulting in
artifact, during which time underlying seizure activity cannot be definitively ruled out. No clear seizures were noted.
--- NOTE | 2024-05-24 19:09 | CON.MD ---
Consultation - Medical
-
Pt seen at bedside - psychiatry consulted due to change in mental status and bizarre behavior. Is in police custody - was observed drinking from the toilet and his urine, brought to ER for evaluation. While admitted found to have fever of 103,
though this decreased. CK elevated at 9800. On assessment pt was awake and alert - did not remember any of the reported behavior, though did report that he did not have any memory of at least the last several days. Reported being surprised when he
started to come to in the hospital, has no memory of going to hospital or being in custody (though appears quite unbothered by this).
Pt eating avidly throughout interview - able to answer all questions appropriately, fully oriented. Denies all sxs of psychosis and no evidence of such observed. Denies much significant psychiatric hx outside of having court appointed therapy for a
few months - attempted to elucidate underlying reason for needing therapy but pt was quite guarded ab about this and would only say that he did find the therapy helpful. Denies hx of significant depression, anxiety or psychosis however and denies
ever needing to see a psychiatrist or going to an inpatient psychiatric facility.
Of note during interview pts temerature was measured and was 101, though he denied feeling unwell.
Suspect delirium/TME as cause of prior bizarre behavior
MSE: male, moderate eye contact, speech nl rate & rhythm. Mood is good, affect appropriate. Denies si/hi/avh/delusions. Thought process is linear & logical. Memory not formally tested. Insight/judgement fair.
No psychiatric intervention warranted at this time, suspect underlying illness as cause of prior behavior - pt now appears to be clearing
[2024-05-24] MEDS: VIBRAMYCIN 260 MG IV (19:17)
[2024-05-25] MEDS: NSS 1000 IV ×3 (02:25→18:27)
[2024-05-25 03:06] VITALS: BP 130/82
[2024-05-25] MEDS: VANCOCIN 300 ML IV (05:16)
[2024-05-25] MEDS: VANCOCIN 300 MG IV (05:16)
[2024-05-25 07:00] VITALS: BP 144/77
[2024-05-25] MEDS: THIAMINE INJECTION 100 MG IV (09:10)
--- NOTE | 2024-05-25 09:12 | W.PN.HOSP.TC ---
Today's Communication/Plan
-
IVF. Antibiotics. Brain MRI.
Assessment / Plan
Assessment / Plan
Physical exam:
General: Acutely ill
HEENT: Normocephalic, Atraumatic and Moist Mucous Membranes
Respiratory: Clear to Auscultation; Negative Wheezes, Rales or Rhonchi
Cardiac: Regular Rhythm and S1/S2
GI: Soft, Nontender and Nondistended
Musculoskeletal: No Clubbing, No Cyanosis and No Edema
Neuro: Awake, Alert and Oriented
Psych: Calm
A/P:
Impression:
Acute encephalopathy.
Concern for sepsis
Rhabdomyolysis, nontraumatic.
Mild elevation of transaminases.
Right upper extremity cellulitis.
Plan:
Acute encephalopathy: Toxic versus infectious
Patient presents with behavioral disturbances likely hallucinations, reported possible seizure prior to hospital admission.
Exam with no focal findings.
CT scan of the head with no acute abnormalities
Urine drug screen positive for marijuana
Given persistent fever LP considered, although patient declined.
MRI of the brain
Ammonia level/trend LFTs
EEG.
Unclear why patient is on Seroquel prior to admission. Will hold to avoid oversedation
Neurology input appreciated
Considering empiric acyclovir pending MRI while patient declined LP.
Initiated on thiamine
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
Sepsis unclear source (fever, elevated white count, altered mental status)
Right upper extremity cellulitis
Noted CPK elevation, although clinically no evidence of compartment syndrome
CT scan with no collection.
Continue current antibiotics-on doxycycline
ID consult
Rhabdomyolysis nontraumatic.
? Secondary to seizure.
Continue IV fluids
CPK trending down but will follow-up trend
Elevated transaminases
Ultrasound with no acute abnormalities
Ammonia level less than 9
Time spent 55 minutes
Anticipated Discharge: > 48 hours
Subjective/Interval History
-
Date of Service: May 25, 2024
Patient alert. No chest pain or shortness of breath. Still having low-grade fever up to 100.7 Fahrenheit
Objective Data
-
Labs:
Laboratory Results
05/25/24
06:00
WBC Pending
Hgb Pending
Hct Pending
Plt Count Pending
Sodium Pending
Potassium Pending
Chloride Pending
Carbon Dioxide Pending
BUN Pending
Creatinine Pending
Glucose Pending
Calcium Pending
Total Bilirubin Pending
AST Pending
ALT Pending
Alkaline Phosphatase Pending
Vital Signs:
Vital Signs
Temp Pulse Resp BP Pulse Ox
97.7 F 64 14 144/77 99
05/25/24 07:00 05/25/24 07:00 05/25/24 07:00 05/25/24 07:00 05/25/24 07:00
I&O
05/24/24 05/25/24 05/26/24
06:59 06:59 06:59
Intake Total 3300 / 3300 6095 / 6095
Output Total 1450 / 1450
Balance 3300 / 3300 4645 / 4645
[2024-05-25] MEDS: NSS IV (09:16)
--- NOTE | 2024-05-25 10:20 | PHA.VAN.FU ---
Vancomycin Assessment / Plan
- Assessment
Renal Function: No New Labs Today (patient refused labs)
In the past 24 hrs, patient has been: Febrile (Tmax 101.6 05/24/24 at 15:48 axillary, 101.2 05/24 at 17:19 orally, currently afebrile)
- Dosing Plan
Continue: Vancomycin 1500mg IV Q12hr
- Monitoring Plan
No level(s) ordered at this time: Will order levels according to vancomycin dosing protocol
- Follow Up
Pharmacy will continue to follow.
Vancomycin Follow UP
- -
Patient Age: 39
Patient Sex: Male
Vancomycin Day #: 3
Indication: Skin And Soft Tissue
Requesting Provider: Cornelia Contreras
Pertinent Antimicrobial Allergies:
NKDA
Height / Weight:
Height 5 ft 11 in
Actual Weight 95.254 kg
IBW in k.3
Adjusted BW in k.3
Pertinent Past Medical History: Nothing pertinant
- Vital Signs / Lab Results
Temp Pulse Resp BP Pulse Ox
97.7 F 64 14 144/77 99
05/25/24 07:00 05/25/24 07:00 05/25/24 07:00 05/25/24 07:00 05/25/24 07:00
Lab Results - Hematology
05/23/24 05/24/24
13:39 05:52
WBC 20.3 H 12.8 H
Lab Results - Chemistry
05/23/24 05/24/24
13:39 05:52
BUN 33 H 18
Creatinine 1.3 1.0
Estimated Creat Clear 83 108
Albumin 4.3 3.1 L
05/23/24 05/23/24 05/23/24
13:55 13:57 19:51
Lactic Acid 2.5 H Cancelled 1.8
Microbiology Results
05/23/24 21:21 MRSA Screen - Final
Nose No Methicillin Resistant Staphylococcus aureus isolated.
05/23/24 14:03 Blood Culture - Preliminary
Blood/Venous No Growth in 24 hours- Final report to follow
05/23/24 14:03 Blood Culture - Preliminary
Blood/Venous No Growth in 24 hours- Final report to follow
05/23/24 14:07 Influenza Types A & B (LELA) - Final
Nasal Swab Negative for Influenza A & B, NAAT
Negative results must be combined with clinical observations
and patient history.
Nucleic Acid Amplification test (NAAT)performed on the
[employer] platform.
--- NOTE | 2024-05-25 11:25 | W.PN.NEURO.1 ---
Today's Communication / Plan
-
.
Subjective/Objective
Subjective Data
Date of Service: May 25, 2024
24h events: Fever up to 38.4 C on 17:19 on 05/24/2024, minimally hypertensive in the morning, tachycardia has resolved.
Mr. Joe has declined LP.
Brain MRI is pending.
No reports of headaches, change in strength, vision, balance or sensation.
AM labs-pending.
Blood cx-no growth
Routine EEG(05/24/2024)-diffuse excess beta activity.
PMH: cannabis addiction
PSH: none
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
All:NKDA
ROS: Positive for leg edema, encephalopathy, imbalance.
General: in NAD
Cardio: regular rhythm
Neuro:
Mental Status: Alert, oriented to self, location, time. Good attention and comprehension. Follows requests across midline. No aphasia or hemineglect.
Cranial Nerves: Pupils are equally round and reactive to light. EOMs full. Visual johnson full to confrontation. No ptosis. No nystagmus. Face symmetric. Normal hearing AU. The palate elevated well. SCMs and traps 5/5. Tongue midline. No
dysarthria.
Motor: All limbs are antigravity.
Reflexes: No clonus at the ankles.
Coordination: no tremors or myoclonic movements
Gait: deferred
Assessment and Plan:
I. Acute encephalopathy, resolved
II. Rhabdomyolysis.
III. Fever
-Seizure precautions.
-Brain MRI wo mallorie
-ID follow up
-DVT prophylaxis.
I personally reviewed all radiology and labs along with past medical records pertinent to current medical problems. Total time spent in patient care is 35 minutes.
Thank you for allowing us to participate in the care of this patient. We will continue to follow. Please do not hesitate to contact us with any questions or concerns.
Objective Data
Vital Signs
Temp Pulse Resp BP Pulse Ox
36.5 C 64 14 144/77 99
05/25/24 07:00 05/25/24 07:00 05/25/24 07:00 05/25/24 07:00 05/25/24 07:00
PT 16.1 Sec (11.4-14.6) H 05/24/24 16:02
INR 1.31 05/24/24 16:02
Sodium 137 mmol/L (135-145) 05/24/24 05:52
Potassium 4.1 mmol/L (3.5-5.1) 05/24/24 05:52
BUN 18 mg/dl (9-20) 05/24/24 05:52
Glucose 102 mg/dl (70-99) H 05/24/24 05:52
Calcium 8.1 mg/dl (8.4-10.2) L 05/24/24 05:52
Ur Buprenorphine Negative (Negative) 05/23/24 15:09
Patient Allergies
No Known Allergies Allergy (Unverified 05/23/24 13:57)
Vital Signs and Labs
-
Vital Signs and Labs:
Vital Signs
Temp Pulse Resp BP Pulse Ox
36.5 C 64 14 144/77 99
05/25/24 07:00 05/25/24 07:00 05/25/24 07:00 05/25/24 07:00 05/25/24 07:00
PT 16.1 Sec (11.4-14.6) H 05/24/24 16:02
INR 1.31 05/24/24 16:02
Sodium 137 mmol/L (135-145) 05/24/24 05:52
Potassium 4.1 mmol/L (3.5-5.1) 05/24/24 05:52
BUN 18 mg/dl (9-20) 05/24/24 05:52
Glucose 102 mg/dl (70-99) H 05/24/24 05:52
Calcium 8.1 mg/dl (8.4-10.2) L 05/24/24 05:52
Ur Buprenorphine Negative (Negative) 05/23/24 15:09
Medications
-
Medications:
Generic Name Dose Route Start Last Admin
Trade Name Freq PRN Reason Stop Dose Admin
Acetaminophen 650 mg 05/23/24 17:28 05/24/24 17:20
Acetaminophen 325 Mg Tablet PO 06/20/24 17:27 650 mg
Q4HPRN PRN Administration
GRANT/mild pain/temp > 100.4 F
Enoxaparin Sodium 40 mg 05/23/24 18:00 05/24/24 17:08
Enoxaparin Sodium 40 Mg/0.4 Ml Syringe SC 06/20/24 17:59 40 mg
QPM PAT Administration
Sodium Chloride 1,000 mls @ 125 mls/hr 05/23/24 17:28 05/25/24 09:16
Nss IV 05/26/24 23:59 Not Given
.Q8H PAT
Vancomycin HCl 1,500 mg/ 300 mls @ 200 mls/hr 05/24/24 18:00 05/25/24 05:16
Sodium Chloride 20 ml/ Sodium IV 300 mls
Chloride Q12H PAT Administration
Protocol
Sodium Chloride 0 flush 05/23/24 18:00
Sodium Chloride 0.9% (Flush) Syringe IV 06/20/24 17:59
PER PROTOCOL PAT
Thiamine HCl 100 mg 05/24/24 14:00 05/25/24 09:10
Thiamine (100 Mg/Ml) 2 Ml Vial IV 05/26/24 08:01 100 mg
DAILY PAT Administration
Home Medications
-
Home Medications
quetiapine 50 mg tablet 75 mg PO HS Sleep 05/23/24
[2024-05-25 12:00] VITALS: BP 130/78
--- NOTE | 2024-05-25 13:22 | W.PN.UPDATE ---
Update Note
Progress Note Update
39 y/o man from [facility] where he was brought to hospital due to drinking his urine, drinking from toilet and appearing to be hallucinating. Treated with Haldol and Ativan in ED. Found to be febrile, elevated WBC, elevated LFT's. EEG had a lot of
movement artifact. 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 On antibiotic. Has a history of being treated with Risperdal at another group home and record shows history f treatment with Seroquel 75 mg. which
pt. denies ever taking.
He has outpatient therapy. History of marijuana use and apparently arrests due to smoking marijuana (denies dealing, denies use of other drugs). Denies alcohol abuse.
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 Has worked for a [employer], [employer], and now doing [employer] at [employer] in [place]. Was not welcome to return to the motel
where he was staying.
He is alert and pleasant. Oriented to month, year and that it was the end of April, but not day of week. Speech is coherent and appropriate. Mood seems euthymic, but nurse reports he has been grandiose. No physical complaints.
This seems to be delirium secondary to an infection or some other medical cause.
Psychiatry will sign off -- contact us if needed.
[2024-05-25 15:00] VITALS: BP 134/86
--- NOTE | 2024-05-25 15:19 | W.PN.ID1 ---
Date of Service
Date of Service: May 25, 2024
Today's Communication
- started acyclovir
- requested LP, will discuss with patient tomorrow
Assessment / Plan
Encephalopathy - resolved
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
- will start the IV acyclovir and as a medical team we can see if patient becomes agreeable to the lp
- lesion could also be metabolic in nature
- elevated CK is notable - will follow
- follow blood cultures
- small wound on his forearm, superficial - without surrounding erythema, warmth, swelling or significant drainage; the arm is equal in size and as warm as the CL arm. Im not convinced he has cellulitis at present
- restart doxycycline to complete 5 more days
- unclear if vaccinated for hep A vs prior infection; would not pursue further workup at this moment, vaccinated for hep B
- HIV negative
- follow clinically
Chief Complaint
-: Fever
Subjective / Review of Systems
afebrile
bp stable
labs were not done this AM planned for this afternoon
Vital Signs / Physical Exam
Vital Signs
Vital Signs
Temp Pulse Resp BP Pulse Ox
98.7 F 97 16 130/78 97
05/25/24 12:00 05/25/24 12:00 05/25/24 12:00 05/25/24 12:00 05/25/24 12:00
Physical Exam
Constitutional: No Acute Distress
Cardiovascular: Regular Rate and S1/S2; Negative Murmur or Rub
Pulmonary: Clear and Symmetric; Negative Wheezes or Rales
Gastrointestinal: Soft, Non Tender, Non Distended and Normal Bowel Sounds
Skin: Warm and Dry; Negative Rash or Jaundice
Wound: Other (small wound on his forearm, superficial - without surrounding erythema, warmth, swelling or significant drainage)
Neurological: AO x 3
Objective Data
Lab Data
PT 16.1 Sec (11.4-14.6) H 05/24/24 16:02
INR 1.31 05/24/24 16:02
Estimated Creat Clear 108 ml/min 05/24/24 05:52
Lactic Acid 1.8 mmol/L (0.7-2.0) 05/23/24 19:51
Total Bilirubin 1.0 mg/dl (0.2-1.3) 05/24/24 05:52
AST 158 U/L (17-59) H 05/24/24 05:52
ALT 111 U/L (0-50) H 05/24/24 05:52
Alkaline Phosphatase 57 U/L (38-126) 05/24/24 05:52
Most recent labs reviewed.
Micro Results:
05/23/24 14:03 Blood Culture - Preliminary
Blood/Venous No Growth in 48 hours- Final report to follow
05/23/24 14:03 Blood Culture - Preliminary
Blood/Venous No Growth in 48 hours- Final report to follow
05/23/24 21:21 MRSA Screen - Final
Nose No Methicillin Resistant Staphylococcus aureus isolated.
05/23/24 14:07 Influenza Types A & B (LELA) - Final
Nasal Swab Negative for Influenza A & B, NAAT
Negative results must be combined with clinical observations
and patient history.
Nucleic Acid Amplification test (NAAT)performed on the
[employer] platform.
Care Review
Plan reviewed with: Physician (Dr Jian DISLA and Dr Nguyễn IR)
--- NOTE | 2024-05-25 15:51 | W.PN.UPDATE ---
Update Note
Progress Note Update
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
Differential diagnosis includes: infections(herpes), postictal, vascular, neoplastic, toxic)
Plan:
-brain/spinal-MRIs with mallorie
-CTA head to rule out pericallosal artery stenosis/occlusion
-ID follow up
Kiana Umanzor D,
Neurology
[2024-05-25 16:14] LABS: % Basophils 0.3 % (0-2); % Eosinophils 2.5 % (0-6); % Immature Granulocytes 0.4 % (0-0.5); % Lymphocytes 8.3 % (20.5-51.1); % Monocytes 7.5 % (1.7-9.3); Absolute Eosinophils 0.3 10^3/uL (0-0.7); Absolute Lymphocytes 0.8 10^3/uL (1.2-3.4); Absolute Monocytes 0.8 10^3/uL (0.1-0.6); Absolute Neutrophils 8.2 10^3/uL (1.4-6.5); Hematocrit 35.5 % (39.0-52.0); Hemoglobin 12.5 g/dL (13.0-18.0); Mean Corp Hgb Conc. 35.2 g/dL (33.0-37.0); Mean Corpuscular Hgb 30.3 pg (27.0-31.0); Mean Platelet Volume 10.4 fL (7.4-10.4); Nucleated Red Blood Cells % 0 % (-); Platelet Count 231 10^3/uL (130-400); Red Blood Cell Count 4.13 10^6/uL (4.70-6.10); Red Cell Dist. Width 12.7 % (11.5-14.5); White Blood Cell Count 10.1 10^3/uL (4.8-10.8)
[2024-05-25 16:50] LABS: ALT (SGPT) 109 U/L (0-50); AST (SGOT) 119 U/L (17-59); Albumin 3.1 g/dl (3.5-5.0); Alkaline Phosphatase 67 U/L (38-126); Blood Urea Nitrogen 13 mg/dl (9-20); Calcium 8.5 mg/dl (8.4-10.2); Carbon Dioxide 30 mmol/L (22-30); Chloride 103 mmol/L (98-107); Creatine Phosphokinase 3075 U/L (55-170); Estimated Creatinine Clearance 120 ml/min; Glucose 125 mg/dl (70-99); Potassium 4.3 mmol/L (3.5-5.1); Sodium 137 mmol/L (135-145); Total Bilirubin 0.5 mg/dl (0.2-1.3); Total Protein 5.7 g/dl (6.3-8.2); eGFR > 60.00
[2024-05-25 17:43] LABS: Prolactin 13.4 ng/ml (3.7-17.9)
[2024-05-25 18:17] LABS: Vitamin B12 786 pg/ml (239-931)
[2024-05-25] MEDS: ZOVIRAX INJECTION 269 MG IV (18:21)
[2024-05-25] MEDS: LOVENOX 40 MG SC (18:21)
[2024-05-25 19:00] VITALS: BP 141/96
[2024-05-25] MEDS: VIBRAMYCIN 100 MG PO (20:15)
[2024-05-25 23:15] VITALS: BP 129/69
[2024-05-26] MEDS: ZOVIRAX INJECTION 269 MG IV ×3 (02:18→18:40)
[2024-05-26 03:11] VITALS: BP 128/89
[2024-05-26 07:00] VITALS: BP 134/83; BP 137/89
[2024-05-26] MEDS: NSS 1000 IV ×2 (07:17→13:14)
[2024-05-26] MEDS: VIBRAMYCIN 100 MG PO ×2 (08:14→19:33)
[2024-05-26] MEDS: THIAMINE INJECTION 100 MG IV (08:14)
--- NOTE | 2024-05-26 08:40 | W.PN.HOSP.TC ---
Today's Communication/Plan
-
IV acyclovir. Doxycycline. LP. CTA of the head.
Assessment / Plan
Assessment / Plan
Physical exam:
General: Acutely ill
HEENT: Normocephalic, Atraumatic and Moist Mucous Membranes
Respiratory: Clear to Auscultation; Negative Wheezes, Rales or Rhonchi
Cardiac: Regular Rhythm and S1/S2
GI: Soft, Nontender and Nondistended
Musculoskeletal: No Clubbing, No Cyanosis and No Edema
Neuro: Awake, Alert and Oriented
Psych: Calm
A/P:
Impression:
Acute encephalopathy.
Concern for sepsis
Rhabdomyolysis, nontraumatic.
Mild elevation of transaminases.
Right upper extremity cellulitis.
Plan:
Acute encephalopathy: Toxic versus infectious
Patient presents with behavioral disturbances likely hallucinations, reported possible seizure prior to hospital admission.
Exam with no focal findings.
CT scan of the head with no acute abnormalities
Urine drug screen positive for marijuana
Given persistent fever LP considered, although patient declined.
MRI of the brain
Ammonia level/trend LFTs
EEG.
Unclear why patient is on Seroquel prior to admission. Will hold to avoid oversedation
Neurology input appreciated
Considering empiric acyclovir pending MRI while patient declined LP.
Initiated on thiamine
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
Sepsis unclear source (fever, elevated white count, altered mental status)
Right upper extremity cellulitis or viral encephalitis
Noted CPK elevation, although clinically no evidence of compartment syndrome
CT scan with no collection.
Continue current antibiotics-on doxycycline and started on IV acyclovir
Continue IV fluids while on acyclovir
White blood cell count from 20.3 down to 10.1 yesterday and today is pending
ID consult
Discussed with ID and planning to do LP and started on acyclovir
Discussed with neurology and planning to do CTA of the head as well today.
Rhabdomyolysis nontraumatic.
? Secondary to seizure.
Continue IV fluids
CPK trending down but will follow-up trend
CPK from 9897 down to 3075 yesterday, today is pending
Elevated transaminases
Ultrasound with no acute abnormalities
Ammonia level less than 9
Anticipated Discharge: 24 - 48 hours
Subjective/Interval History
-
Date of Service: May 26, 2024
Patient alert. Afebrile today. No headache or neck pain.
Objective Data
-
Labs:
Laboratory Results
05/26/24
06:00
WBC Pending
Hgb Pending
Hct Pending
Plt Count Pending
Sodium Pending
Potassium Pending
Chloride Pending
Carbon Dioxide Pending
BUN Pending
Creatinine Pending
Glucose Pending
Calcium Pending
Total Bilirubin Pending
AST Pending
ALT Pending
Alkaline Phosphatase Pending
Vital Signs:
Vital Signs
Temp Pulse Resp BP Pulse Ox
98.5 F 84 14 137/89 100
05/26/24 07:00 05/26/24 07:00 05/26/24 07:00 05/26/24 07:00 05/26/24 07:00
I&O
05/25/24 05/26/24 05/27/24
06:59 06:59 06:59
Intake Total 6095 / 6095 2220 / 2220
Output Total 1450 / 1450 3850 / 3850
Balance 4645 / 4645 -1630 / -1630
[2024-05-26 11:00] VITALS: BP 134/83
--- NOTE | 2024-05-26 11:57 | W.PN.NEURO.1 ---
Today's Communication / Plan
-
.
Subjective/Objective
Subjective Data
Date of Service: May 26, 2024
24h events: Mr. Joe reports no headache, change in vision, strength. No reported or documented seizures.
The patient was restarted on Acyclovir and started on Doxycycline.
CTA head showed no arteriographic abnormalities are demonstrated.
Brain MRI wo mallorie-cytotoxic lesion of the corpus callosum
No family history of ROD STRAIGHTENER demyelinating diseases.
Routine EEG(05/24/2024)-diffuse excess beta activity.
PMH: cannabis addiction
PSH: none
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
All:NKDA
ROS: neg foe headache, change in vision, edema, chest pain, rash
General: in NAD, restrained. Security guards are in the room.
Cardio: regular rhythm
Neuro:
Mental Status: Alert, oriented to self, location, month, year, not date. Unable to spell world backwards, do serial 7s. Able to name and repear, no hemineglect.
Cranial Nerves: Pupils are equally round and reactive to light. EOMs full. Visual johnson full to confrontation. No ptosis. No nystagmus. Face symmetric. Normal hearing AU. The palate elevated well. SCMs and traps 5/5. Tongue midline. No
dysarthria.
Motor: All limbs are antigravity.
Reflexes: No clonus at the ankles.
Coordination: no tremors or myoclonic movements
Gait: deferred
Assessment and Plan:
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 Differential diagnosis includes: infections, postictal, vascular, neoplastic, toxic.
II. Encephalopathy-clinically improved
III. Fever-resolved
-Seizure precautions.
-Brain, spinal MRI with mallorie
-CSF(OP/CP, HSV, OCB, MBP)
-ID follow up
-Continue Thiamin IV
-DVT prophylaxis.
I personally reviewed all radiology and labs along with past medical records pertinent to current medical problems. Total time spent in patient care is 40 minutes.
Thank you for allowing us to participate in the care of this patient. We will continue to follow. Please do not hesitate to contact us with any questions or concerns.
Objective Data
Vital Signs
Temp Pulse Resp BP Pulse Ox
36.9 C 90 14 134/83 98
05/26/24 11:00 05/26/24 11:00 05/26/24 11:00 05/26/24 11:00 05/26/24 11:00
PT 16.1 Sec (11.4-14.6) H 05/24/24 16:02
INR 1.31 05/24/24 16:02
Sodium 137 mmol/L (135-145) 05/25/24 16:05
Potassium 4.3 mmol/L (3.5-5.1) 05/25/24 16:05
BUN 13 mg/dl (9-20) 05/25/24 16:05
Glucose 125 mg/dl (70-99) H 05/25/24 16:05
Calcium 8.5 mg/dl (8.4-10.2) 05/25/24 16:05
Vitamin B12 786 pg/ml (239-931) 05/25/24 16:05
Ur Buprenorphine Negative (Negative) 05/23/24 15:09
Patient Allergies
No Known Allergies Allergy (Unverified 05/23/24 13:57)
Vital Signs and Labs
-
Vital Signs and Labs:
Vital Signs
Temp Pulse Resp BP Pulse Ox
36.9 C 90 14 134/83 98
05/26/24 11:00 05/26/24 11:00 05/26/24 11:00 05/26/24 11:00 05/26/24 11:00
PT 16.1 Sec (11.4-14.6) H 05/24/24 16:02
INR 1.31 05/24/24 16:02
Sodium 137 mmol/L (135-145) 05/25/24 16:05
Potassium 4.3 mmol/L (3.5-5.1) 05/25/24 16:05
BUN 13 mg/dl (9-20) 05/25/24 16:05
Glucose 125 mg/dl (70-99) H 05/25/24 16:05
Calcium 8.5 mg/dl (8.4-10.2) 05/25/24 16:05
Vitamin B12 786 pg/ml (239-931) 05/25/24 16:05
Ur Buprenorphine Negative (Negative) 05/23/24 15:09
Medications
-
Medications:
Generic Name Dose Route Start Last Admin
Trade Name Freq PRN Reason Stop Dose Admin
Acetaminophen 650 mg 05/23/24 17:28 05/24/24 17:20
Acetaminophen 325 Mg Tablet PO 06/20/24 17:27 650 mg
Q4HPRN PRN Administration
GRANT/mild pain/temp > 100.4 F
Doxycycline Hyclate 100 mg 05/25/24 20:00 05/26/24 08:14
Doxycycline 100 Mg Capsule PO 100 mg
Q12 PAT Administration
Enoxaparin Sodium 40 mg 05/23/24 18:00 05/25/24 18:21
Enoxaparin Sodium 40 Mg/0.4 Ml Syringe SC 06/20/24 17:59 40 mg
QPM PAT Administration
Sodium Chloride 1,000 mls @ 125 mls/hr 05/23/24 17:28 05/26/24 07:17
Nss IV 05/26/24 23:59 1,000 mls
.Q8H PAT Administration
Acyclovir Sodium 950 mg/ 269 mls @ 250 mls/hr 05/25/24 18:00 05/26/24 09:53
Sodium Chloride IV 06/04/24 17:59 269 mls
Q8H PAT Administration
Sodium Chloride 0 flush 05/23/24 18:00
Sodium Chloride 0.9% (Flush) Syringe IV 06/20/24 17:59
PER PROTOCOL PAT
--- NOTE | 2024-05-26 12:50 | W.PN.ID1 ---
Date of Service
Date of Service: May 26, 2024
Today's Communication
c/w acyclovir
discussed LP at length with patient - currently refusing but willing to continue the discussion
Assessment / Plan
Encephalopathy - resolved
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
- c/w IV acyclovir
- discussed LP at length with patient - currently refusing but willing to continue the discussion
- lesion could also be metabolic in nature
- elevated CK is notable - will follow
- follow blood cultures
- small wound on his forearm, superficial - without surrounding erythema, warmth, swelling or significant drainage; the arm is equal in size and as warm as the CL arm. Im not convinced he has cellulitis at present
- restart doxycycline to complete 5 more days
- unclear if vaccinated for hep A vs prior infection; would not pursue further workup at this moment, vaccinated for hep B
- HIV negative
- follow clinically
Chief Complaint
-: Fever
Subjective / Review of Systems
no further katty fevers
bp stable
Vital Signs / Physical Exam
Vital Signs
Vital Signs
Temp Pulse Resp BP Pulse Ox
98.4 F 90 14 134/83 98
05/26/24 11:00 05/26/24 11:00 05/26/24 11:00 05/26/24 11:05/26/24 11:00
Physical Exam
Constitutional: No Acute Distress
Cardiovascular: Regular Rate and S1/S2; Negative Murmur or Rub
Pulmonary: Clear and Symmetric; Negative Wheezes or Rales
Gastrointestinal: Soft, Non Tender, Non Distended and Normal Bowel Sounds
Skin: Warm and Dry; Negative Rash or Jaundice
Neurological: Awake, Alert and Oriented; Negative Meningeal Signs
Objective Data
Lab Data
PT 16.1 Sec (11.4-14.6) H 05/24/24 16:02
INR 1.31 05/24/24 16:02
Estimated Creat Clear 120 ml/min 05/25/24 16:05
Lactic Acid 1.8 mmol/L (0.7-2.0) 05/23/24 19:51
Total Bilirubin 0.5 mg/dl (0.2-1.3) 05/25/24 16:05
AST 119 U/L (17-59) H 05/25/24 16:05
ALT 109 U/L (0-50) H 05/25/24 16:05
Alkaline Phosphatase 67 U/L (38-126) 05/25/24 16:05
Most recent labs reviewed.
Micro Results:
05/23/24 14:03 Blood Culture - Preliminary
Blood/Venous No Growth in 48 hours- Final report to follow
05/23/24 14:03 Blood Culture - Preliminary
Blood/Venous No Growth in 48 hours- Final report to follow
05/23/24 21:21 MRSA Screen - Final
Nose No Methicillin Resistant Staphylococcus aureus isolated.
05/23/24 14:07 Influenza Types A & B (LELA) - Final
Nasal Swab Negative for Influenza A & B, NAAT
Negative results must be combined with clinical observations
and patient history.
Nucleic Acid Amplification test (NAAT)performed on the
[employer] platform.
Care Review
Plan reviewed with: Physician (Dr Ramirez and Dr Villalpando - MED)
[2024-05-26] MEDS: NSS IV (13:12)
[2024-05-26 15:00] VITALS: BP 140/87
[2024-05-26] MEDS: LOVENOX 40 MG SC (18:41)
[2024-05-26 19:00] VITALS: BP 140/84
[2024-05-26] MEDS: NSS (PRESERVATIVE FREE) 0.25 ML IV (21:51)
[2024-05-26] MEDS: ATIVAN 0.5 MG IV (21:51)
[2024-05-26 23:00] VITALS: BP 134/91
--- NOTE | 2024-05-26 23:24 | PTCARENOTE ---
Pt continuously taking off tele monitor leads. Day shift RN documented that pt was taking medication that required tele. This RN could not find a medication that would require pt be on tele. EGG GATHERER made aware, order obtained to take d/c monitor.
--- NOTE | 2024-05-27 01:13 | PTCARENOTE ---
Pt seen to be very restless and constantly moving. Nely Gong made aware, order for ativan obtained. Care ongoing.
--- NOTE | 2024-05-27 01:21 | PTCARENOTE ---
Pt has two guards at beside. Pt constantly pulling at IV, taking off tele leads, trying to get out of bed. The guards restrained pt to bed on all extremities. HAND BUFFER made aware, no order needed. Care ongoing.
[2024-05-27] MEDS: NSS 1000 IV (01:41)
[2024-05-27] MEDS: ZOVIRAX INJECTION 269 MG IV ×2 (01:41→10:55)
[2024-05-27 06:00] VITALS: BMI 27.6
[2024-05-27 07:50] VITALS: BP 137/94
[2024-05-27] MEDS: VIBRAMYCIN 100 MG PO ×2 (08:58→21:01)
[2024-05-27 09:42] LABS: ALT (SGPT) 125 U/L (0-50); AST (SGOT) 92 U/L (17-59); Albumin 3.4 g/dl (3.5-5.0); Alkaline Phosphatase 63 U/L (38-126); Blood Urea Nitrogen 9 mg/dl (9-20); Calcium 9.3 mg/dl (8.4-10.2); Carbon Dioxide 31 mmol/L (22-30); Chloride 101 mmol/L (98-107); Creatine Phosphokinase 735 U/L (55-170); Estimated Creatinine Clearance > 125 ml/min; Glucose 98 mg/dl (70-99); Potassium 4.4 mmol/L (3.5-5.1); Sodium 138 mmol/L (135-145); Total Bilirubin 0.5 mg/dl (0.2-1.3); Total Protein 6.2 g/dl (6.3-8.2); eGFR > 60.00
[2024-05-27 09:48] LABS: % Basophils 0.4 % (0-2); % Eosinophils 5.8 % (0-6); % Immature Granulocytes 0.5 % (0-0.5); % Lymphocytes 14.1 % (20.5-51.1); % Monocytes 11.2 % (1.7-9.3); Absolute Eosinophils 0.6 10^3/uL (0-0.7); Absolute Immature Granulocytes 0.1 10^3/uL (0-0.05); Absolute Lymphocytes 1.4 10^3/uL (1.2-3.4); Absolute Monocytes 1.1 10^3/uL (0.1-0.6); Absolute Neutrophils 6.6 10^3/uL (1.4-6.5); Hemoglobin 12.8 g/dL (13.0-18.0); Mean Corp Hgb Conc. 34.6 g/dL (33.0-37.0); Mean Corpuscular Hgb 30.1 pg (27.0-31.0); Mean Corpuscular Volume 87.1 fL (80.0-94.0); Mean Platelet Volume 10.5 fL (7.4-10.4); Nucleated Red Blood Cells % 0 % (-); Platelet Count 294 10^3/uL (130-400); Red Blood Cell Count 4.25 10^6/uL (4.70-6.10); Red Cell Dist. Width 12.6 % (11.5-14.5); White Blood Cell Count 9.7 10^3/uL (4.8-10.8)
--- NOTE | 2024-05-27 10:53 | CM ---
Addendum entered by Tuyet Rios 05/27/24 10:57:
Chart reviewed. Pt is being rec for LP, however he is refusing.
Update provided to [facility]
Original Note:
Pt seen at bedside. Care ongoing.
CM will continue w/ d/c planning needs.
Plan: Return to [facility]
Continue to follow and provide updates to [facility]
[2024-05-27] MEDS: NSS IV (13:36)
[2024-05-27 14:05] VITALS: BP 125/83; BP_SYST 98
[2024-05-27 15:20] VITALS: BP 136/76; BP_SYST 94
[2024-05-27 15:25] VITALS: BP 136/76
[2024-05-27 15:48] VITALS: BP 129/69
--- NOTE | 2024-05-27 16:03 | W.PN.HOSP.TC ---
Today's Communication/Plan
-
LP.
MRI with gadolinium.
Empiric acyclovir.
Observe for seizures
Assessment / Plan
Assessment / Plan
Impression:
Acute encephalopathy.
Concern for sepsis
Rhabdomyolysis, nontraumatic.
Mild elevation of transaminases.
Right upper extremity cellulitis.
Plan:
Acute encephalopathy: Toxic versus infectious
Patient presents with behavioral disturbances likely hallucinations, reported possible seizure prior to hospital admission.
Exam with no focal findings.
CT scan of the head with no acute abnormalities
Urine drug screen positive for marijuana
Given persistent fever LP considered, although patient declined.
EEG without epileptic activity
Ammonia level undetectable
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
CT angiogram negative
Differential diagnosis of lesion found on MRI: Infection, vascular, neoplastic, toxic
LP pending
Unclear why patient is on Seroquel prior to admission. Will hold to avoid oversedation
Initiated on empiric acyclovir
Initiated on thiamine
Additionally patient with MRI with gadolinium.
Sepsis unclear source (fever, elevated white count, altered mental status)
Right upper extremity cellulitis or viral encephalitis
Noted CPK elevation, although clinically no evidence of compartment syndrome
CT scan with no collection.
Continue current antibiotics-on doxycycline
WBC normalized
Rhabdomyolysis nontraumatic.
? Secondary to seizure.
CPK trending down but will follow-up trend
Wean off IV fluids with sufficient oral intake
Elevated transaminases
Ultrasound with no acute abnormalities
Ammonia level less than 9
Anticipated Discharge: 24 - 48 hours
Subjective/Interval History
-
Date of Service: May 27, 2024
Objective Data
-
Labs:
Laboratory Results
05/27/24
09:08
WBC 9.7
Hgb 12.8 L
Hct 37.0 L
Plt Count 294 D
Sodium 138
Potassium 4.4
Chloride 101
Carbon Dioxide 31 H
BUN 9
Creatinine 0.8
Glucose 98
Calcium 9.3
Total Bilirubin 0.5
AST 92 H
ALT 125 H
Alkaline Phosphatase 63
Vital Signs:
Vital Signs
Temp Pulse Resp BP Pulse Ox
98.6 F 77 18 129/69 96
05/27/24 15:48 05/27/24 15:48 05/27/24 15:48 05/27/24 15:48 05/27/24 15:48
I&O
05/26/24 05/27/24 05/28/24
06:59 06:59 06:59
Intake Total 2220 / 2220 960 / 960
Output Total 3850 / 3850 3000 / 3000
Balance -1630 / -1630 -2040 / -2040
Physical Exam
-
General: Well Developed and No Apparent Distress
HEENT: Normocephalic, Atraumatic and Moist Mucous Membranes
Respiratory: Clear to Auscultation
Cardiac: Regular Rhythm and S1/S2; Negative Murmur, Rub or Gallop
GI: Soft, Nontender, Nondistended and Normal Bowel Sounds; Negative Organomegaly
Rectal: Deferred by Provider
Musculoskeletal: No Clubbing, No Cyanosis and No Edema
Skin: Negative Rash
Neuro: Nonfocal/Grossly Intact
[2024-05-27 16:13] LABS: CSF Clarity Clear; CSF Color Colorless; CSF Tube # 4; Red Cell Count/CSF 1 mm^3; White Cell Count/CSF 1 mm^3 (0-5)
[2024-05-27 16:30] LABS: Spinal Fluid Glucose 60 mg/dl (40-70); Spinal Fluid Protein 17 mg/dl (12-60)
--- NOTE | 2024-05-27 16:54 | W.PN.UPDATE ---
Update Note
Progress Note Update
Patient off the floor during my rounds for LP
CSF not consistent with meningitis or encephalitis
Stopped acyclovir
complete planned course of doxycycline
[2024-05-27] MEDS: LOVENOX 40 MG SC (17:53)
--- NOTE | 2024-05-27 19:27 | PTCARENOTE ---
Pt received from IR around 1600. AAOx3, VSS, no complaints of pain. bandaid over lumbar puncture site is clean dry and intact. Pt resting in bed, guards at bedside.
[2024-05-27 23:00] VITALS: BP 155/90
[2024-05-28 07:17] VITALS: BP 128/91
[2024-05-28] MEDS: VIBRAMYCIN 100 MG PO (07:50)
--- NOTE | 2024-05-28 12:31 | CM ---
Addendum entered by Mattie Mosley 05/28/24 16:07:
Patient for discharge to residential. CM attempted to call [facility] and number not working. CM updated residential guards and plan for transition back to [facility].
Original Note:
Patient seen at bedside, guards in place. Plan to return to [facility] when medically appropriate. CM will continue to follow for discharge planning needs.
Plan; return to [facility] [phone]/fax [phone]
--- NOTE | 2024-05-28 14:23 | W.PN.NEURO.1 ---
Today's Communication / Plan
-
Lumbar puncture under fluoroscopy guidance
CSF analysis
May start aspirin following lumbar puncture
Neuro Assessment/Plan
Assessment
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
Plan
Lumbar puncture under fluoroscopy guidance
IV antibiotics
Subjective/Objective
Subjective Data
Date of Service: April
Mr. Joe is doing well. He has no new complaints. he is agreed to undergoing lumbar puncture
Objective Data
Vital Signs
Temp Pulse Resp BP Pulse Ox
98.6 F 77 18 129/69 96
05/27/24 15:48 05/27/24 15:48 05/27/24 15:48 05/27/24 15:48 05/27/24 15:48
Lab Results
05/27/24 09:08
05/27/24 09:08
PT 16.1 Sec (11.4-14.6) H 05/24/24 16:02
INR 1.31 05/24/24 16:02
Sodium 138 mmol/L (135-145) 05/27/24 09:08
Potassium 4.4 mmol/L (3.5-5.1) 05/27/24 09:08
BUN 9 mg/dl (9-20) 05/27/24 09:08
Glucose 98 mg/dl (70-99) 05/27/24 09:08
Calcium 9.3 mg/dl (8.4-10.2) 05/27/24 09:08
Vitamin B12 786 pg/ml (239-931) 05/25/24 16:05
Ur Buprenorphine Negative (Negative) 05/23/24 15:09
Patient Allergies
No Known Allergies Allergy (Unverified 05/23/24 13:57)
Physical Exam
-
General: Well Developed and Well Nourished
Eyes: Able to visualize OU, Unremarkable and Round OU
HEENT: Normocephalic and Atraumatic
Psych: Intact Judgement/Insight
Extended Neurological Exam
Mood & Affect: Mood Unremarkable and Affect Unremarkable
Attention Span & Concentration: Awake, Alert, Interactive and No Difficulty with 2 Step Request
Memory: Able to Recall and Recalls Objects
Tremor: Hand Tremor Absent and Head Tremor Absent
Involuntary Movement: None
Speech: Quality Unremarkable and Quantity Unremarkable
Cranial Nerve II: Left Eye: Pupillary Reactivity Unremarkable and Pupillary Size Unremarkable
Cranial Nerve II: Right Eye: Pupillary Reactivity Unremarkable and Pupillary Size Unremarkable
Cranial Nerves III, IV, : Extraocular Movement: Extraocular Movement Full in all Directions
Cranial Nerve V: Facial Sensation: Intact to Light Touch
Cranial Nerve VII: Facial Symmetry: Normal Facial Symmetry
Cranial Nerve VIII: Hearing: Unremarkable Hearing to Normal Conversational Volume
Cranial Nerves IX, X: Palate Movement: Palate Elevation Symmetric
Cranial Nerve XI: Shoulder Shrug: Unremarkable
Cranial Nerve XII: Tongue Protusion: Midline
Muscle Strength, Overall: Full Throughout
Muscle Bulk & Tone: Bulk Unremarkable and Tone Unremarkable
Pronator Drift: No Drift in Upper Extremities and No Drift in Lower Extremities
Deep Tendon Reflexes: Unremarkable Throughout
Cold Sensation: Unremarkable
Vibration Sensation: Unremarkable
Touch Sensation: Unremarkable
Coordination: Ynbrky-wqtf-uityeh Testing Unremarkable and ROCHELLE Unremarkable
Babinski Sign: Absent Bilaterally
Gait & Station: Up from Lying with Difficulty
Data Reviewed
-
MRI Head: Image Reviewed (Infarction in the splenium of Corpus Callosum)
--- NOTE | 2024-05-28 14:32 | W.PN.NEURO.1 ---
Today's Communication / Plan
-
Aspirin 81 mg daily.
Given h/o rhabdomyolysis will avoid Statin
Neuro Assessment/Plan
Assessment
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
Plan
Stop Acyclovir. May continue Doxycycline
Subjective/Objective
Subjective Data
Date of Service: May 28, 2024
Patient is doing well post lumbar puncture no headache dizziness or weakness
Objective Data
Vital Signs
Temp Pulse Resp BP Pulse Ox
36.9 C 84 18 128/91 98
05/28/24 07:17 05/28/24 07:17 05/28/24 07:17 05/28/24 07:17 05/28/24 08:05
Lab Results
05/27/24 09:08
05/27/24 09:08
PT 16.1 Sec (11.4-14.6) H 05/24/24 16:02
INR 1.31 05/24/24 16:02
Sodium 138 mmol/L (135-145) 05/27/24 09:08
Potassium 4.4 mmol/L (3.5-5.1) 05/27/24 09:08
BUN 9 mg/dl (9-20) 05/27/24 09:08
Glucose 98 mg/dl (70-99) 05/27/24 09:08
Calcium 9.3 mg/dl (8.4-10.2) 05/27/24 09:08
Vitamin B12 786 pg/ml (239-931) 05/25/24 16:05
Ur Buprenorphine Negative (Negative) 05/23/24 15:09
Patient Allergies
No Known Allergies Allergy (Unverified 05/23/24 13:57)
Physical Exam
-
General: Well Developed, Well Nourished, No Apparent Distress and Comfortable
Eyes: Able to visualize OU, Unremarkable and Round OU
HEENT: Normocephalic and Atraumatic
Psych: Unremarkable
Extended Neurological Exam
Mood & Affect: Mood Unremarkable and Other (mood elevated)
Attention Span & Concentration: Awake, Alert, Interactive and No Difficulty with 2 Step Request
Memory: Unremarkable and Able to Recall
Tremor: Hand Tremor Absent and Head Tremor Absent
Involuntary Movement: None
Speech: Quality Unremarkable, Quantity Unremarkable and Rate of Production Unremarkable
Cranial Nerve II: Left Eye: Pupillary Reactivity Unremarkable and Pupillary Size Unremarkable
Cranial Nerve II: Right Eye: Pupillary Reactivity Unremarkable and Pupillary Size Unremarkable
Cranial Nerves III, IV, : Extraocular Movement: Extraocular Movement Full in all Directions
Cranial Nerve V: Facial Sensation: Intact to Light Touch
Cranial Nerve VIII: Hearing: Unremarkable Hearing to Normal Conversational Volume
Cranial Nerves IX, X: Palate Movement: Palate Elevation Symmetric
Cranial Nerve XI: Shoulder Shrug: Unremarkable
Cranial Nerve XII: Tongue Protusion: Midline
Muscle Strength, Overall: Full Throughout
Muscle Bulk & Tone: Bulk Unremarkable and Tone Unremarkable
Pronator Drift: No Drift in Upper Extremities and No Drift in Lower Extremities
Deep Tendon Reflexes: Unremarkable Throughout
Cold Sensation: Unremarkable
Vibration Sensation: Unremarkable
Touch Sensation: Unremarkable
Coordination: Reaches for Objects without Difficulty and ROCHELLE Unremarkable
Babinski Sign: Absent Bilaterally
Gait & Station: Up from Seated Without Problem and Up from Lying with Difficulty
Modified Kathy Score (MRS)
-
Modified [place] Scale (mRS): No significant disability. Able to carry out usual activities.
Score: 1
--- NOTE | 2024-05-28 14:56 | W.DS.TRANS ---
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
-
Discharge Instructions:
Discharge Diagnosis/Procedures TME
Diet Regular
Instructions:
Stand-Alone Forms:
Changes to Home Medications: Yes
Discharge Medications:
DC Medications w/original date entered in [employer]
aspirin 81 mg tablet,delayed release 81 mg PO DAILY #30 tabs 05/28/24
doxycycline hyclate 100 mg capsule 100 mg PO Q12 #4 caps 05/28/24
fenofibrate nanocrystallized 48 mg tablet 48 mg PO HS #30 tabs 05/28/24
Home Medication Changes
Asa and Tricor started.
Seroquel discontinued
Pending Results: Yes
Additional Pending Results:
Lipid profile
--- NOTE | 2024-05-28 15:37 | W.PN.ID1 ---
Date of Service
Date of Service: May 28, 2024
Today's Communication
- c/w doxycycline for 3 more days
stable for dc from ID perspective
Assessment / Plan
Encephalopathy - resolved
Cellulitis
- c/w doxycycline for 3 more days
stable for dc from ID perspective
Chief Complaint
-: Fever
Subjective / Review of Systems
afebrile
no new complaints
Vital Signs / Physical Exam
Vital Signs
Vital Signs
Temp Pulse Resp BP Pulse Ox
98.4 F 84 18 128/91 98
05/28/24 07:17 05/28/24 07:17 05/28/24 07:17 05/28/24 07:17 05/28/24 08:05
Physical Exam
Constitutional: No Acute Distress
Cardiovascular: Regular Rate and S1/S2; Negative Murmur or Rub
Pulmonary: Clear and Symmetric; Negative Wheezes or Rales
Gastrointestinal: Soft, Non Tender, Non Distended and Normal Bowel Sounds
Skin: Warm and Dry; Negative Rash or Jaundice
Objective Data
Lab Data
Lab Results
05/27/24 09:08
05/27/24 09:08
PT 16.1 Sec (11.4-14.6) H 05/24/24 16:02
INR 1.31 05/24/24 16:02
Estimated Creat Clear > 125 ml/min 05/27/24 09:08
Lactic Acid 1.8 mmol/L (0.7-2.0) 05/23/24 19:51
Total Bilirubin 0.5 mg/dl (0.2-1.3) 05/27/24 09:08
AST 92 U/L (17-59) H 05/27/24 09:08
ALT 125 U/L (0-50) H 05/27/24 09:08
Alkaline Phosphatase 63 U/L (38-126) 05/27/24 09:08
Most recent labs reviewed.
Micro Results:
05/23/24 14:03 Blood Culture - Final
Blood/Venous No Growth - Final Report
05/23/24 14:03 Blood Culture - Final
Blood/Venous No Growth - Final Report
05/27/24 15:15 CSF Culture - Preliminary
Csf No Growth After 18-24 Hours
Gram Stain - Preliminary
05/23/24 21:21 MRSA Screen - Final
Nose No Methicillin Resistant Staphylococcus aureus isolated.
05/23/24 14:07 Influenza Types A & B (LELA) - Final
Nasal Swab Negative for Influenza A & B, NAAT
Negative results must be combined with clinical observations
and patient history.
Nucleic Acid Amplification test (NAAT)performed on the
[email or web address] platform.
Care Review
Plan reviewed with: Physician (Dr lopez - vikas)
[2024-05-28 15:38] VITALS: BP 153/91
[2024-05-28] MEDS: ASPIR LOW (ENTERIC COATED) 81 MG PO (16:02)
[2024-05-29 13:14] LABS: Quantiferon Mitogen minus NIL 4.34 IU/mL; Quantiferon NIL 0.03 IU/mL; Quantiferon TB Gold Plus Negative (Negative)
[2024-05-29 23:51] LABS: C.neoformans Antigen Negative (Negative)
--- NOTE | 2024-05-30 13:52 | PN.CDI ---
CDI
- -
CDI:
Physician Documentation Request
Admit Date: 05/23/24 16:49
Dear Doctor Lesli,
Patient admitted with rhabdomyolysis.
05/27 PN, 'Acute encephalopathy: Toxic versus infectious....Patient presents with behavioral disturbances likely hallucinations.'
Discharge Summary: 'Acute encephalopathy.'
Based on the above, could you clarify in the Progress Notes and Discharge Summary which, is the most likely etiology of the altered mental status:
Toxic metabolic encephalopathy
Metabolic encephalopathy
Other
Use of terms such as suspected, likely, concern for, or probable (associated with a specific diagnosis that is being evaluated, monitored, or treated as if it exists) are acceptable and can be coded in the inpatient setting, when documented at the
time of discharge.
Thank you,
Daly LYNN,RN,CCDS
CDI Specialist
Available via [place] [facility] text
Please use your independent medical judgment in providing your response.
== END 2024-05-28 18:48 | DRG 71 ==
LOC: 3 WEST ACU 16:49
PROVIDERS: Hospitalist; Physician Assistant; Physician Assistant Medical; Radiology Diagnostic Radiology; ADMITTING PHYSICIAN Hospitalist; ATTENDING PHYSICIAN Internal Medicine; CONSULT PHYSICIAN Psychiatry & Neurology Neurology; CONSULT PHYSICIAN Student in an Organized Health Care Education/Training Program; EMERGENCY PHYSICIAN Student in an Organized Health Care Education/Training Program; OTHER PHYSICIAN Psychiatry & Neurology Psychiatry
PROC: 009U3ZX Drainage of Spinal Canal, Percutaneous Approach, Diagnostic (ICD-10-PCS; 2024-05-27)
DX: G93.41 Metabolic encephalopathy (principal); L03.113 Cellulitis of right upper limb; M62.82 Rhabdomyolysis; R44.3 Hallucinations, unspecified; Z59.00 Homelessness unspecified; R74.01 Elevation of levels of liver transaminase levels; F12.20 Cannabis dependence, uncomplicated; R45.1 Restlessness and agitation; Z11.52 Encounter for screening for COVID-19; G93.9 Disorder of brain, unspecified
CPT/HCPCS: 62328; 70450; 70496; 70551; 71045; 73201; 74018; 76700; 80053; 80306; 81003; 81015; 82140; 82550; 82607; 82945; 83605; 83735; 84146; 84157; 84439; 84443; 85025; 85027; 85610; 86480; 86704; 86705; 86706; 86708; 86803; 87015; 87040; 87070; 87205; 87327; 87340; 87389; 87502; 87811; 89051; 93005; 93971; 95816; 96361; 96365; 96366; 96372; 96375; 99285; Q9967

== ENCOUNTER 2024-05-31 16:27 | Inpatient (IN) | payer OTHER, SELFPAY ==
[2024-05-31] VITALS (7 sets, daily range): BP systolic 126–161; BP diastolic 69–89; BMI 25.5
--- NOTE | 2024-05-31 13:32 | ED.GENMED ---
History of Present Illness
General
Chief Complaint: Weakness
Source: patient
Exam Limitations: none
Time Seen by Provider: 05/31/24 13:31
History of Present Illness
History of Present Illness:
See MDM
Past History
Past History
ED Past Medical History: None
ED Past Surgical History: None
Social History
Tobacco: Non-smoker
Alcohol: None
Phy Exam
Physical Exam
Physical Exam:
See MDM
Course
Orders/Labs/Results
Orders:
Orders
05/31/24 13:32
0.9% Sodium Chloride 1000 ml [Nss] 1,000 ml IV BOLUS
05/31/24 13:44
CPK [Creatine Phosphokinase] Urgent
Complete Blood Count/With Diff Urgent
Comprehensive Metabolic Panel Urgent
05/31/24 14:18
Lorazepam [Ativan] 1 mg IV NOW STA
Abnormal Lab Results
05/31/24
13:44
WBC 14.0 H 10^3/uL
(4.8-10.8)
RBC 4.54 L 10^6/uL
(4.70-6.10)
Plt Count 515 H D 10^3/uL
(130-400)
Abs Immat Gran (auto) 0.1 H 10^3/uL
(0-0.05)
Absolute Neuts (auto) 11.4 H 10^3/uL
(1.4-6.5)
Absolute Lymphs (auto) 1.1 L 10^3/uL
(1.2-3.4)
Absolute Monos (auto) 1.4 H 10^3/uL
(0.1-0.6)
Immature Gran % 0.8 H %
(0-0.5)
Neutrophils % 81.4 H %
(42.2-75.2)
Lymphocytes % 7.5 L %
(20.5-51.1)
Monocytes % 10.0 H %
(1.7-9.3)
Sodium 149 H mmol/L
(135-145)
Potassium 5.2 H mmol/L
(3.5-5.1)
BUN 93 H mg/dl
(9-20)
Creatinine 2.0 H mg/dL
(0.7-1.3)
Glucose 118 H mg/dl
(70-99)
AST 121 H U/L
(17-59)
ALT 123 H U/L
(0-50)
Creatine Kinase 3425 H U/L
(55-170)
05/31/24 13:44
05/31/24 13:44
Vital Signs
Initial and Last Documented VS:
Initial Vital Signs
Temp Pulse Resp BP Pulse Ox
97.6 F 118 20 142/86 98
05/31/24 13:31 05/31/24 13:31 05/31/24 13:31 05/31/24 13:31 05/31/24 13:31
Last Documented Vital Signs
Temp Pulse Resp BP Pulse Ox
97.6 F 100 19 126/73 97
05/31/24 13:31 05/31/24 15:00 05/31/24 15:00 05/31/24 15:00 05/31/24 15:00
MDM/Problems Addressed
Differential Diagnosis Includes:
HPI and MDM Narrative:
39-year-old male presenting from detention for evaluation of altered mental status. Per EMS, patient has not been taking care of himself. He has not been eating or drinking. Patient is a poor historian. Patient clearly is dehydrated and altered.
He is intermittently answering questions appropriately.
Physical exam
General: Disheveled
HEENT: protecting airway. Dry mucous membrane
Neck: appears supple
CV: No evidence of cyanosis
Resp: No accessory muscle use
Abd: Non-distended
Extremities: No deformities
Neuro: alert. Appears disoriented
Psych: Flat affect
Skin: Intact
Problems Addressed including Acute and Chronic Conditions affecting care:
1. Altered mental status
Acuity: acute
Prognosis: stable
Details: Will obtain basic blood work
2. Rhabdomyolysis
Acuity: acute
Prognosis: stable
Details: Appears nontraumatic and likely in setting of poor p.o. intake. Will give IV fluids
Updates
Given rhabdomyolysis with elevated creatinine, will admit. Prior records indicate he was recently admitted for very similar presentation where he had a negative CT and LP
Differential Diagnosis (but not limited to): Drug abuse, metabolic encephalopathy, dehydration
Testing considered: CT head but this was recently performed and negative
Drug therapy (if applicable): OTC meds, please see d/c instruction regarding Rx drugs
Amount and/or Complexity of Data Reviewed
Clinical info obtained from: Patient
External data reviewed: N/A
Labs I independently reviewed (but not limited to): Elevated creatinine and CPK
Radiology: N/A
Pulse Ox: not hypoxic
EKG independently reviewed: N/A
Editor Book: N/A
Critical Care: N/A
Risk of Complication:
Social Determinants of health: Poor social support
Discussed with other providers: Hospitalist
Escalation of Care includes Admit/Obs: Given the altered mental status and rhabdomyolysis, will admit
Occasional wrong word or 'sound a like' substitutions may have occurred due to the inherent limitations of voice recognition software. Read the chart carefully and recognize, using context, where substitutions have occurred.
*Critical Care Note
Total Time (30-74mins, 75-104mins- exclusive of procedures): Not Applicable
ED Attending Note
-
Portions of this chart may have been created with voice recognition software.� Occasional wrong word or��sound alike� substitutions may have occurred due to the inherent limitations of voice recognition software.
Discharge Plan
Departure
Patient Disposition: Admit
Date of Disposition: 05/31/24
Time of Disposition: 15:39
Admit to: Med/Surg
Presentation/result/management discussed w/ accepting MD/DO: Hospitalist
Discharge Problem:
Acute dehydration, Rhabdomyolysis, MIRIAM (acute kidney injury)
Prescriptions:
No Action
doxycycline hyclate 100 mg Capsule
100 mg PO Q12 Qty: 4 0RF
aspirin 81 mg Tablet,Delayed Release (Dr/Ec)
81 mg PO DAILY Qty: 30 0RF
fenofibrate nanocrystallized 48 mg Tablet
48 mg PO HS Qty: 30 0RF
Referrals:
[facility] [Family Provider] -
Interventions
Interventions:
*Risk Screen - Suicide Last Done: 05/31/24 13:31
*General Assessment Last Done: 05/31/24 13:31
*Neglect/Abuse Screening Last Done: 05/31/24 13:31
*ED COVID-19 Vaccine History Last Done: 05/31/24 14:00
ED- Cardiac Assessment Last Done: 05/31/24 14:00
ED- Neurological Assessment Last Done: 05/31/24 14:00
ED- Pulmonary Assessment Last Done: 05/31/24 14:00
Discharge Date and Time
Print Language: COOK ISLANDER
[2024-05-31 14:00] LABS: % Basophils 0.3 % (0-2); % Immature Granulocytes 0.8 % (0-0.5); % Lymphocytes 7.5 % (20.5-51.1); % Neutrophils 81.4 % (42.2-75.2); Absolute Immature Granulocytes 0.1 10^3/uL (0-0.05); Absolute Lymphocytes 1.1 10^3/uL (1.2-3.4); Absolute Monocytes 1.4 10^3/uL (0.1-0.6); Absolute Neutrophils 11.4 10^3/uL (1.4-6.5); Hematocrit 39.5 % (39.0-52.0); Hemoglobin 13.1 g/dL (13.0-18.0); Mean Corp Hgb Conc. 33.2 g/dL (33.0-37.0); Mean Corpuscular Hgb 28.9 pg (27.0-31.0); Mean Platelet Volume 10.1 fL (7.4-10.4); Nucleated Red Blood Cells % 0 % (-); Platelet Count 515 10^3/uL (130-400); Red Blood Cell Count 4.54 10^6/uL (4.70-6.10); Red Cell Dist. Width 13.5 % (11.5-14.5)
[2024-05-31 14:16] LABS: ALT (SGPT) 123 U/L (0-50); AST (SGOT) 121 U/L (17-59); Albumin 4.6 g/dl (3.5-5.0); Alkaline Phosphatase 76 U/L (38-126); Blood Urea Nitrogen 93 mg/dl (9-20); Carbon Dioxide 27 mmol/L (22-30); Chloride 107 mmol/L (98-107); Glucose 118 mg/dl (70-99); Potassium 5.2 mmol/L (3.5-5.1); Sodium 149 mmol/L (135-145); Total Bilirubin 0.9 mg/dl (0.2-1.3); Total Protein 7.8 g/dl (6.3-8.2); eGFR 43.27
[2024-05-31] MEDS: NSS 1000 IV ×2 (14:28→18:16)
[2024-05-31] MEDS: ATIVAN 1 MG IV ×3 (14:28→23:54)
[2024-05-31 15:20] LABS: Creatine Phosphokinase 3425 U/L (55-170)
--- NOTE | 2024-05-31 15:40 | HPS.HSE ---
Family Physician
-
Family Physician: Facility [facility]
Chief Complaint
-
change in MS
poor oral intake
History of Present Illness
39 y/o male presents [facility] with an acute change in mental status. . he was admitted with concern for acute encephalopathy. patient is oriented to self only. denied any acute pain. he ws noted to have elevated wbc. his CK was
elevated.admitting for further management.
patient was discharged from on 05/28. CT scan of the head with no acute abnormalities. His urine drug screen was positive for marijuana.With concern for sepsis and encephalitis, patient underwent LP while initiated empirically on acyclovir. CSF
findings were with no evidence of infection, and acyclovir had been discontinued. His additional workup with EEG showed no epileptic activities. 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
of a possible CVA given negative CSF findings, less likely infection versus vascular.
patient was sent home on doxy for possible right wrist infection.
Medical History
Past Medical History
Past Medical History: Reports Other
Additional Past Medical History:
rhabdo
hyperlipidemia
Past Surgical History: Reports None
Social History
Unable to obtain full social history at this time due to: Acuity
Family History
Family History: Not pertinent
Allergies / Home Medications
Allergies reflects when Allergies were last updated in [facility].
Home Medications with original date entered in [facility]
Allergy/Medication List:
Allergies
Allergy/AdvReac Type Severity Reaction Status Date / Time
No Known Allergies Allergy Verified 05/31/24 13:37
Home Medications
aspirin 81 mg tablet,delayed release 81 mg PO DAILY #30 tabs 05/28/24
fenofibrate nanocrystallized 48 mg tablet 48 mg PO HS #30 tabs 05/28/24
doxycycline hyclate 100 mg capsule 100 mg PO Q12H 05/31/24
risperidone 3 mg tablet 3 mg PO HS 05/31/24
Review of Systems
-
Constitutional: Reports No Symptoms
EENT: Reports No Symptoms
Respiratory: Reports No Symptoms
Cardiac: Reports No Symptoms
Abdomen/GI: Reports No Symptoms
: Reports No Symptoms
Musculoskeletal: Reports No Symptoms
Skin: Reports No Symptoms
Neurological: Reports No Symptoms
Endocrine: Reports No Symptoms
Hematologic/Lymphatic: Reports No Symptoms
Psych: Reports No Symptoms
Physical Exam
Vital Signs
Vital Signs
Temp Pulse Resp BP Pulse Ox
97.6 F 100 19 126/73 97
05/31/24 13:31 05/31/24 15:00 05/31/24 15:00 05/31/24 15:00 05/31/24 15:00
Physical Exam
General: Well Developed, Well Nourished and No Apparent Distress
HEENT: NormoCephalic, Moist mucous membranes and Atraumatic
Respiratory: Clear
Cardiac: S1/S2 and Regular Rhythm; No Murmur or Rub
GI: Soft, Non Tender, Non Distended and Normal Bowel Sounds; No Organomegaly
Rectal: Deferred by Provider
Musculoskeletal: No Clubbing, No Cyanosis and No Edema
Skin: Rash and Other (right wrist tender and swollen)
Neuro: Nonfocal/grossly intact
Psych: Confused
Laboratory Results
-
05/31/24 13:44
05/31/24 13:44
Laboratory Results
Total Bilirubin 0.9 mg/dl (0.2-1.3) 05/31/24 13:44
AST 121 U/L (17-59) H 05/31/24 13:44
ALT 123 U/L (0-50) H 05/31/24 13:44
Alkaline Phosphatase 76 U/L (38-126) 05/31/24 13:44
Data Reviewed
-
Lab Data: Labs Reviewed by me
Impression/Plan
-
#metabolic encephalopathy/poor oral intake unclear cause likely from right wrist infection
#sepsis as evident by wbc and tachy
-wbc 14.0, patient is afebrile
-iv vanco and cefepime
-Tylenol prn for fever
-ID consulted
#rhabdo
-CPK 3000
-normal saline continued
#acute kidney injury/hypernatremia/hyperkalemia likely dehydration
-na 149, k 5.2, cr 2.0
-ns 150cc/hr continued
-BMp in am
#transaminitis likely dehydration
-ast 121,alt 123
-normal saline continued
-LFT in am
#HLD
-fenofibrate continued
#anxiety
-risperidone continued
#DVT prophylaxis
-heparin sq
#CODE status
-full code
--- NOTE | 2024-05-31 16:27 | W.PN.UPDATE ---
Update Note
Progress Note Update
This is an addendum to the H&P written by Rufina Galvan on 05/31/2024.� Patient seen examined independently with BATCH AND FURNACE MANAGER.
39-year-old male unknown past medical history presenting from [facility] for altered mental status once again.
He was recently admitted from 05/23 to 05/28 with acute metabolic encephalopathy and rhabdomyolysis secondary to right wrist and left ankle cellulitis.� He was treated with IV fluids and IV antibiotics transitioned to doxycycline as per ID.� There was
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
Worsening mental status since going back to present with decreased oral intake.� No seizure activity noted.�
Patient tachycardic, labs show leukocytosis, hypernatremia with sodium of 149, hyperkalemia with potassium 5.2.� Creatinine of 2.� Rhabdomyolysis with CK of 3400 and transaminitis.� Patient clinically hypovolemic with recurrent rhabdomyolysis.� IV
fluids to treat hypernatremia, MIRIAM and rhabdomyolysis.
Right wrist swelling appears to have improved although still swollen with decreased range of motion and tenderness to palpation and warm although today should be the last day of doxycycline.� Will restart vancomycin/ceftriaxone.� Reconsult ID for
consideration of septic arthritis.� Check urinalysis.� May require neurology consult after treatment of metabolic abnormalities.
--- NOTE | 2024-05-31 18:06 | PHA.VAN.IN ---
Assessment
- Assessment
Renal Function: Appears elevated from baseline (05/27/24 BASELINE SCR = 0.8)
Concomitant Antimicrobials: ROCEPHIN
- Previous Dosing Experience
Previous Regimen: 1500MG IV Q12H
Date of Regimen: 05/24/24
Provided Trough of: 12.4 PREDICTED
Provided AUC of: 514 PREDICTED
Patient's SCR is: Elevated compared to previous dosing experience (05/24/24 SCR = 1.0)
Patient's weight is: Decreased compared to previous dosing experience (05/24/24 WT = 95.25 KG)
Plan
- Plan
Initial / Loading Dose: 2GM
Maintenance Regimen: DOSING BY RANDOM LEVELS
Monitoring: RANDOM VANCOMYCIN LEVEL 06/01/24
Pharmacokinetics Vancomycin I
- -
Patient Age: 39
Patient Sex: Male
Vancomycin Day #: 1
Indication: Skin And Soft Tissue ([R] WRIST; SEPSIS)
Requesting Provider: JYOTI
Height / Weight:
Height 5 ft 11 in
Actual Weight 83.007 kg
Pertinent Past Medical History: RECENT DISCHARGE 05/28/24 FOR POSSIBLE MENIGITIS
- Vital Signs / Lab Results
Temp Pulse Resp BP Pulse Ox
97.2 F 95 18 138/70 100
05/31/24 17:51 05/31/24 17:51 05/31/24 17:51 05/31/24 17:51 05/31/24 17:51
Lab Results - Hematology
05/31/24
13:44
WBC 14.0 H
Lab Results - Chemistry
05/31/24
13:44
BUN 93 H
Creatinine 2.0 H
Albumin 4.6
[2024-05-31] MEDS: VANCOCIN 540 MG IV (18:14)
[2024-05-31] MEDS: ROCEPHIN 1000 MG IV (18:22)
[2024-05-31] MEDS: STERILE WATER FOR INJECTION 10 ML IV (18:22)
--- NOTE | 2024-05-31 19:50 | PTCARENOTE ---
received pt to room 318-2 from ED. VSS and assessment complete. Pt was thrashing in bed, unable to interact with staff, pt was talked to reassuredly and he calmed down and drifted off to sleep. Two instances of this occurred. Haldol was ordered by
provider for PRN agitation. Pt resting comfortably
[2024-05-31] MEDS: HEPARIN 5000 UNITS SC (20:03)
[2024-05-31] MEDS: HALDOL 1 MG IV (20:07)
[2024-05-31] MEDS: RISPERDAL PO (21:05)
[2024-05-31] MEDS: TRICOR PO (21:05)
--- NOTE | 2024-05-31 23:30 | PTCARENOTE ---
Patient agitated, yelling out. Not able to have any kind of meaningful conversations, unable to follow any commands. PRN Haldol given with little effect. NICKI Ordonez on unit. Order received for Ativan 1mg IV. Patient received Ativan per order,
became less agitated/combative. [facility] guards remain at bedside. Care ongoing, will monitor.
[2024-05-31] MEDS: NSS (PRESERVATIVE FREE) 0.5 ML IV (23:55)
[2024-06-01] MEDS: NSS 1000 IV ×3 (02:44→23:47)
[2024-06-01] MEDS: HALDOL 1 MG IV (02:44)
--- NOTE | 2024-06-01 03:15 | PTCARENOTE ---
NICKI Ordonez notified patient is again yelling and agitated. PRN Haldol given again with little effect. [employer] FINANCIAL DEVELOPER placed another one time order for Ativan 1mg IV. Care ongoing, will monitor.
[2024-06-01] MEDS: ATIVAN 1 MG IV (04:05)
[2024-06-01] MEDS: NSS (PRESERVATIVE FREE) 0.5 ML IV (04:06)
[2024-06-01 08:00] VITALS: BP 120/80
[2024-06-01 08:53] LABS: Glucose - Point of Care 80 mg/dl (70-99)
[2024-06-01] MEDS: HEPARIN 5000 UNITS SC ×2 (09:04→21:26)
[2024-06-01] MEDS: ASPIR LOW (ENTERIC COATED) PO ×2 (09:24→10:35)
--- NOTE | 2024-06-01 10:25 | W.PN.HOSP.TC ---
Today's Communication/Plan
-
see A/P
Assessment / Plan
Assessment / Plan
HPI: 39-year-old male unknown past medical history presenting from senior care for altered mental status once again.
He was recently admitted from 05/23 to 05/28 with acute metabolic encephalopathy and rhabdomyolysis secondary to right wrist and left ankle cellulitis.� He was treated with IV fluids and IV antibiotics transitioned to doxycycline as per ID.� There was
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
He returned due to worsening mental status with now decreased oral intake.�No seizure activity noted.�
In the ED, patient was tachycardic. Labs show leukocytosis, hypernatremia with sodium of 149. Creatinine of 2. Rhabdomyolysis with CK of 3400 and transaminitis.� Patient clinically hypovolemic with recurrent rhabdomyolysis.�Treated with IV fluids
for hypernatremia, MIRIAM and rhabdomyolysis.
Right wrist swelling appeared to have improved although still swollen with decreased range of motion and tenderness to palpation and warm.
On DOA, should be the last day of doxycycline.�Vancomycin/ceftriaxone restarted.�
A/P:
# Acute metabolic encephalopathy with poor oral intake, unclear cause but could be from persistent right wrist infection vs underlying psychiatric condition
# Possible sepsis POA (leucocytosis and tachycardia)
# Recent right wrist and left ankle cellulitis
VP COMPLIANCE on doxycycline (last dose 05/31)
Started vanco and cefepime,
ID consult for Abx recc
Tylenol prn for fever
Consider Psych eval for psychosis
# Dehydration with acute kidney injury/hypernatremia
Sodium level on admission 149
SCr at 2.0, baseline 0.8
Cont NSS IVF
# Mild rhabdo
CPK 3000
Cont NSS IVF
# Chronic transaminitis
Recent Abd US without acute intra-abdominal process
Cont to follow LFT
# HLD
cont fenofibrate
# anxiety
cont risperidone
DVT prophylaxis-heparin sq
CODE status-full code
DW RN
Anticipated Discharge: > 48 hours
Subjective/Interval History
-
Date of Service: June 01, 2024
Objective Data
-
Labs:
Laboratory Results
06/01/24
06:00
WBC Pending
Hgb Pending
Hct Pending
Plt Count Pending
Sodium Pending
Potassium Pending
Chloride Pending
Carbon Dioxide Pending
BUN Pending
Creatinine Pending
Glucose Pending
Calcium Pending
Vital Signs:
Vital Signs
Temp Pulse Resp BP Pulse Ox
36.3 C 99 18 120/80 96
06/01/24 08:00 06/01/24 08:00 06/01/24 08:00 06/01/24 08:00 06/01/24 08:00
I&O
05/31/24 06/01/24 06/02/24
06:59 06:59 06:59
Intake Total 0 / 0
Balance 0 / 0
Review of Systems
-
Unable to obtain full review of systems at this time due to: Acuity
Physical Exam
-
General: Well Developed, No Apparent Distress and Other (disheveled )
HEENT: Normocephalic, Atraumatic and Moist Mucous Membranes
Respiratory: Clear to Auscultation and Non Labored Respirations; Negative Accessory Resp Muscle Use
Cardiac: Regular Rhythm and S1/S2; Negative Murmur, Rub or Gallop
GI: Soft, Nontender, Nondistended and Normal Bowel Sounds; Negative Organomegaly
Rectal: Deferred by Provider
Musculoskeletal: No Clubbing, No Cyanosis and No Edema
Skin: Negative Rash
Neuro: Awake
Psych: Calm; Negative Intact Judgement/Insight
Data Reviewed
-
Labs: Labs Reviewed by me
--- NOTE | 2024-06-01 10:58 | CON.ID ---
Consultation
-
Date/Time Consultation Requested: 05/31/2024 1744
Date/Time Consultation Performed: 06/01/2024 1000
Requesting Provider: Rufina Galvan
Performing Provider: Dr. Li
Reason for Consultation: Leukocytosis; rhabdomyolysis
Chief Complaint / Past History
History of Present Illness
Rosendo Joe is a 39-year-old man being evaluated at the request of Rufina Galvan regarding leukocytosis and cellulitis. History is obtained through chart review alone, as the patient can provide no meaningful history to me.
The patient is known to the Infectious Diseases service, having been seen in consultation on 05/24/2024. In review of those records, the patient presented to [facility] from the local correctional facility. His incarceration reportedly
began on 05/20 following arrest after a traffic stop. He was transferred to [facility] for further evaluation after he was found 'drinking from the toilet, drinking his own urine'. During that hospitalization he was found to be febrile with
a leukocytosis. He was found to have rhabdomyolysis with initial CK of approximately 10K. Because of encephalopathy, LP was performed which was found to be negative. His hospital course was significant for the diagnosis of cellulitis, and he was
last seen on 05/28 when it was recommended he continue with doxycycline for an additional 3 days.
He presents back to [facility] on 05/31 secondary to ongoing altered mental status. Workup in the ER again revealed an elevated CK, along with an elevated white count.
At present, history was attempted to be elicited from the patient, but he remains confused, with outbursts of verbal derogatory remarks.
Past History
Past Medical History: Other (Unknown)
Past Surgical History: Other (Unknown)
Allergy History:
No Known Allergies Allergy (Verified 05/31/24 13:37)
Medications Reviewed: Yes
Current Antibiotics:
Ceftriaxone 1 g IV every 24 hours
Vancomycin (dosing per pharmacy
Social History
Tobacco: Other (unknown)
Alcohol: Other (unknown)
Drug: Marijuana
Employment: Not Employed
Family History
Family History: Unable to Obtain
Review of Systems
Vital Signs
Temp Pulse Resp BP Pulse Ox
97.3 F 99 18 120/80 96
06/01/24 08:00 06/01/24 08:00 06/01/24 08:00 06/01/24 08:00 06/01/24 08:00
Physical Exam
Physical Exam
Constitutional: Acutely Ill and Non-toxic
Head: Normocephalic
Eyes: Pupils Equal, Pupils Round, No Conjunctival Hemorrhage and Sclera Anicteric
Oral: No Thrush and No Ulcers
Cardiovascular: Regular Rate and S1/S2; Negative S3/S4
Pulmonary: Clear; Negative Wheezes, Rales or Rhonchi
Gastrointestinal: Soft, Non Tender, Non Distended, Normal Bowel Sounds, No Rebound and No Guarding
Genito-Urinary: Negative Wilkinson
Extremities: Negative Edema, Cyanosis or Erythema
Skin: Warm and Dry; Negative Rash or Jaundice
Wound: None
Neurological: Awake and Alert
Psychological: Confused and Agitated
Lab / Diagnostic Study Results
Abs Immat Gran (auto) 0.1 10^3/uL (0-0.05) H 05/31/24 13:44
Absolute Neuts (auto) 11.4 10^3/uL (1.4-6.5) H 05/31/24 13:44
Absolute Lymphs (auto) 1.1 10^3/uL (1.2-3.4) L 05/31/24 13:44
Absolute Monos (auto) 1.4 10^3/uL (0.1-0.6) H 05/31/24 13:44
Absolute Basos (auto) 0.0 10^3/uL (0-0.2) 05/31/24 13:44
Immature Gran % 0.8 % (0-0.5) H 05/31/24 13:44
Neutrophils % 81.4 % (42.2-75.2) H 05/31/24 13:44
Lymphocytes % 7.5 % (20.5-51.1) L 05/31/24 13:44
Monocytes % 10.0 % (1.7-9.3) H 05/31/24 13:44
Eosinophils % 0.0 % (0-6) 05/31/24 13:44
Basophils % 0.3 % (0-2) 05/31/24 13:44
05/31/24
13:44
WBC 14.0 H
Plt Count 515 H D
Neutrophils % 81.4 H
Sodium 149 H
Potassium 5.2 H
Creatinine 2.0 H
AST 121 H
ALT 123 H
Creatine Kinase 3425 H
Laboratory Tests
05/24/24
16:02
HIV Ag/Ab Combo Qual Negative
Microbiology Results
Imaging:
05/25/2024 MRI brain without contrast: A 17 mm cytotoxic lesion in the splenium of the corpus callosum. Finding may be seen in a variety of entities including seizure disorder, infections and metabolic disturbances. No intracranial hemorrhage. No
mass effect to suggest neoplasm. No abnormal extra-axial fluid collections noted.
Assessment / Plan
Ongoing encephalopathy of unclear etiology
Leukocytosis
Thrombocytosis
Hyponatremia
MIRIAM
Transaminitis
Rhabdomyolysis
Recommendations:
Prior MRSA screen negative; discontinue further vancomycin.
Continue ceftriaxone for the present.
Monitor white count temperature curve.
Patient ultimately may require additional imaging of the brain in follow-up of prior abnormal results.
Recommend Neurology evaluation
[2024-06-01 11:45] VITALS: BP 163/96
[2024-06-01 11:55] LABS: Glucose - Point of Care 75 mg/dl (70-99)
[2024-06-01 12:32] LABS: Hematocrit 37.5 % (39.0-52.0); Hemoglobin 12.3 g/dL (13.0-18.0); Mean Corp Hgb Conc. 32.8 g/dL (33.0-37.0); Mean Corpuscular Hgb 29.9 pg (27.0-31.0); Mean Platelet Volume 10.1 fL (7.4-10.4); Platelet Count 460 10^3/uL (130-400); Red Blood Cell Count 4.12 10^6/uL (4.70-6.10); Red Cell Dist. Width 13.7 % (11.5-14.5); White Blood Cell Count 11.3 10^3/uL (4.8-10.8)
[2024-06-01 12:47] LABS: Blood Urea Nitrogen 39 mg/dl (9-20); Calcium 9.3 mg/dl (8.4-10.2); Carbon Dioxide 26 mmol/L (22-30); Chloride 113 mmol/L (98-107); Estimated Creatinine Clearance 83 ml/min; Glucose 88 mg/dl (70-99); Potassium 4.4 mmol/L (3.5-5.1); Sodium 152 mmol/L (135-145); eGFR > 60.00
[2024-06-01 12:52] LABS: Vancomycin Random 9.3 ug/ml
--- NOTE | 2024-06-01 14:07 | PHA.VAN.FU ---
Vancomycin Assessment / Plan
- Assessment
Renal Function: SCR Decreasing
WBC's are: Trending Down
In the past 24 hrs, patient has been: Afebrile
Concomitant Antimicrobials: CEFTRIAXONE
- Assessment - Therapeutic Drug Monitoring
Random Level: 9.3
- Dosing Plan
Dosing by Level: Re-dose today (1500MG)
- Monitoring Plan
Random Level: 10/6 IN AM
- Follow Up
Pharmacy will continue to follow.
Vancomycin Follow UP
- -
Patient Age: 39
Patient Sex: Male
Vancomycin Day #: 2
Indication: Skin And Soft Tissue ([R] WRIST; SEPSIS)
Requesting Provider: JYOTI
Height / Weight:
Height 5 ft 11 in
Actual Weight 83.007 kg
Pertinent Past Medical History: RECENT DISCHARGE 05/28/24 FOR POSSIBLE MENIGITIS
- Vital Signs / Lab Results
Temp Pulse Resp BP Pulse Ox
97.4 F 110 18 163/96 99
06/01/24 11:45 06/01/24 11:45 06/01/24 11:45 06/01/24 11:45 06/01/24 11:45
Lab Results - Hematology
05/31/24 06/01/24
13:44 12:17
WBC 14.0 H 11.3 H
Lab Results - Chemistry
05/31/24 06/01/24
13:44 12:17
BUN 93 H 39 H
Creatinine 2.0 H 1.3
Estimated Creat Clear 83
Albumin 4.6
Therapeutic Drug Monitoring
Random Vancomycin 9.3 ug/ml 06/01/24 12:17
Random Vancomycin Cancelled 06/01/24 12:17
[2024-06-01 16:00] VITALS: BP 140/80
[2024-06-01] MEDS: NSS IV (16:09)
[2024-06-01] MEDS: STERILE WATER FOR INJECTION 10 ML IV (18:02)
[2024-06-01] MEDS: ROCEPHIN 1000 MG IV (18:02)
[2024-06-01 19:35] VITALS: BP 136/89
[2024-06-01] MEDS: RISPERDAL 3 MG PO (21:27)
[2024-06-01] MEDS: TRICOR 48 MG PO (21:27)
[2024-06-01 23:56] VITALS: BP 122/70
[2024-06-02 03:24] VITALS: BP 152/88
[2024-06-02 06:37] LABS: Hematocrit 37.2 % (39.0-52.0); Hemoglobin 11.9 g/dL (13.0-18.0); Mean Corpuscular Hgb 29.4 pg (27.0-31.0); Mean Corpuscular Volume 91.9 fL (80.0-94.0); Mean Platelet Volume 10.2 fL (7.4-10.4); Platelet Count 403 10^3/uL (130-400); Red Blood Cell Count 4.05 10^6/uL (4.70-6.10); Red Cell Dist. Width 13.4 % (11.5-14.5); White Blood Cell Count 9.2 10^3/uL (4.8-10.8)
[2024-06-02] MEDS: NSS 1000 IV (06:38)
[2024-06-02 07:00] LABS: Blood Urea Nitrogen 24 mg/dl (9-20); Carbon Dioxide 25 mmol/L (22-30); Chloride 113 mmol/L (98-107); Estimated Creatinine Clearance 98 ml/min; Glucose 84 mg/dl (70-99); Magnesium 2.3 mg/dl (1.6-2.3); Potassium 4.8 mmol/L (3.5-5.1); Sodium 150 mmol/L (135-145); eGFR > 60.00
[2024-06-02] MEDS: HEPARIN 5000 UNITS SC ×2 (07:49→20:13)
[2024-06-02] MEDS: ASPIR LOW (ENTERIC COATED) 81 MG PO (07:49)
[2024-06-02 08:02] VITALS: BP 158/86
[2024-06-02] MEDS: D5W 1000 IV ×2 (08:15→16:35)
--- NOTE | 2024-06-02 08:48 | CM ---
Chart reviewed: patient from [facility]; presented from care home for Altered Mental Status
Recently admitted from 05/23 to 05/28 with acute metabolic encephalopathy and rhabdomyolysis secondary to right wrist and left ankle cellulitis; treated with IV fluids and IV antibiotics transitioned to doxycycline as per ID.� There was concern for
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
Anticipated Discharge: > 48 hours; CM will follow and provide updates to [facility]
P#[phone]
F# [phone]
[2024-06-02 11:23] VITALS: BP 138/78
--- NOTE | 2024-06-02 13:18 | W.PN.HOSP.TC ---
Today's Communication/Plan
-
see A/P
Assessment / Plan
Assessment / Plan
HPI: 39-year-old male unknown past medical history presenting from jail for altered mental status once again.
He was recently admitted from 05/23 to 05/28 with acute metabolic encephalopathy and rhabdomyolysis secondary to right wrist and left ankle cellulitis.� He was treated with IV fluids and IV antibiotics transitioned to doxycycline as per ID.� There was
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
He returned due to worsening mental status with now decreased oral intake.�No seizure activity noted.�
In the ED, patient was tachycardic. Labs show leukocytosis, hypernatremia with sodium of 149. Creatinine of 2. Rhabdomyolysis with CK of 3400 and transaminitis.� Patient clinically hypovolemic with recurrent rhabdomyolysis.�Treated with IV fluids
for hypernatremia, MIRIAM and rhabdomyolysis.
Right wrist swelling appeared to have improved although still swollen with decreased range of motion and tenderness to palpation and warm.
On DOA, should be the last day of doxycycline.�Vancomycin/ceftriaxone restarted.�
A/P:
# Acute metabolic encephalopathy with poor oral intake, unclear cause but could be from persistent right wrist infection vs underlying psychiatric condition
# Possible sepsis POA (leucocytosis and tachycardia)
# Recent right wrist and left ankle cellulitis
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
ceftriaxone and vancomycin stopped by ID
Tylenol prn for fever
# L hand spasm/myoclonus/dystonia, unclear etiology
?could this be dystonia related to risperidone?
check EEG
Neuro CS
Psych eval
# Dehydration with acute kidney injury/hypernatremia
Sodium today at 150
SCr at 2.0 -> 1.1, baseline 0.8
Cont IVF, change to D5W
# Mild rhabdo, ?from L hand spasm
CPK 3000, cont to trend CPK
Cont IVF as above
# Chronic transaminitis
Recent Abd US without acute intra-abdominal process
Cont to follow LFT
# HLD
cont fenofibrate
# anxiety
cont risperidone
DVT prophylaxis-heparin sq
CODE status-full code
DW RN
DW ID
Total time spent 51 min
Anticipated Discharge: > 48 hours
Subjective/Interval History
-
Date of Service: June 02, 2024
Objective Data
-
Labs:
Laboratory Results
06/02/24
06:17
WBC 9.2
Hgb 11.9 L
Hct 37.2 L
Plt Count 403 H
Sodium 150 H
Potassium 4.8
Chloride 113 H
Carbon Dioxide 25
BUN 24 H
Creatinine 1.1
Glucose 84
Calcium 9.0
Vital Signs:
Vital Signs
Temp Pulse Resp BP Pulse Ox
36.8 C 106 16 138/78 97
06/02/24 11:23 06/02/24 11:23 06/02/24 11:23 06/02/24 11:23 06/02/24 11:23
I&O
06/01/24 06/02/24 06/03/24
06:59 06:59 06:59
Intake Total 1800 / 1800
Balance 1800 / 1800
--- NOTE | 2024-06-02 13:29 | W.PN.ID1 ---
Date of Service
Date of Service: June 02, 2024
Today's Communication
Discontinue further ceftriaxone.
Assessment / Plan
Ongoing encephalopathy of unclear etiology
Leukocytosis
Thrombocytosis
Hyponatremia
MIRIAM
Transaminitis
Rhabdomyolysis
Recommendations:
No evidence of ongoing SSTI.
Discontinue further ceftriaxone.
Monitor white count / temperature curve.
Patient ultimately may require additional imaging of the brain in follow-up of prior abnormal results.
Recommend Neurology evaluation
Chief Complaint
-: Other (Encephalopathy)
Subjective / Review of Systems
Patient seen and examined. Remains minimally communicative with episodes of muscle spasm
Review of Systems: No Fever
Vital Signs / Physical Exam
Vital Signs
Vital Signs
Temp Pulse Resp BP Pulse Ox
98.3 F 106 16 138/78 97
06/02/24 11:23 06/02/24 11:23 06/02/24 11:23 06/02/24 11:23 06/02/24 11:23
Physical Exam
Constitutional: Comfortable
Head: Normocephalic
Eyes: Sclera Anicteric
Pulmonary: Non Labored
Gastrointestinal: Non Distended
Extremities: Negative Edema or Erythema
Neurological: Awake, Alert and Other; Negative Meningeal Signs
Objective Data
Lab Data
Lab Results
06/02/24 06:17
06/02/24 06:17
Estimated Creat Clear 98 ml/min 06/02/24 06:17
Total Bilirubin 0.9 mg/dl (0.2-1.3) 05/31/24 13:44
AST 121 U/L (17-59) H 05/31/24 13:44
ALT 123 U/L (0-50) H 05/31/24 13:44
Alkaline Phosphatase 76 U/L (38-126) 05/31/24 13:44
Most recent labs reviewed.
Imaging:
05/25/2024 MRI brain without contrast: A 17 mm cytotoxic lesion in the splenium of the corpus callosum. Finding may be seen in a variety of entities including seizure disorder, infections and metabolic disturbances. No intracranial hemorrhage. No
mass effect to suggest neoplasm. No abnormal extra-axial fluid collections noted.
Care Review
Plan reviewed with: Physician (Hospitalist)
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
--- NOTE | 2024-06-02 14:53 | CON.NEURO4 ---
Consultation - Neurology 4
-
CONSULTING PHYSICIAN: Tejinder Malin MD
REFERRING PHYSICIAN: Hospitalist
DICTATED BY: Tejinder Malin MD
DATE/TIME OF REQUEST: June 02, 2024
DATE/TIME OF CONSULTATION: June 02, 2024
Reason for Consultation: Involuntary spasms
History of Present Illness:
This is a 39 year old right) handed (male/ who has presented to the hospital with (chief complaint) of AMS. He was initially admitted in Apr with behavioral issues confused engaged in bizarre behaviors. His incarceration reportedly began on 05/20
following arrest after a traffic stop. He was transferred to [facility] for further evaluation after he was found 'drinking from the toilet, drinking his own urine'. During that hospitalization he was found to be febrile with a
leukocytosis. He was found to [place] [address]. Because of encephalopathy, LP was performed which was found to be negative. His hospital course was significant for the diagnosis of cellulitis, and he was
last seen on 05/28 when it was recommended he continue with doxycycline for an additional 3 days He was admitted for possible meningoencephalitis and placed on antibiotics and acyclovir
MRI of the head showed an infarction in the splenium of the Corpus callosum with differential of inflammation vs neoplasm.
CSF studies showed aseptic fluid ([id number])and antibiotics were stopped
He was discharged on Risperdal.
He is now admitted with cellulitis and inability to provide self care. Right wrist swollen with tenderness
Involuntary spasms of the left arm/ hand.
[id number]
Past Medical History: Schizophrenia
Surgical History: None
Family History: NC
Social History: Incarcerated marijuana
Allergies: None
Home Medications: Seroquel, Risperidal, Doxycycline, Aspirin, Tricor
Review of Symptoms:
Patient denies any fever, headache, chest pain, shortness of breath, GI or symptoms.
�Per the HPI.�All systems are reviewed negative except above.
�-
Vital Signs:
The patient has a
Physical Exam:
The patient is afebrile, heart sounds S1 and S2 are (regular / irregular), and chest is clear to auscultation bilaterally.
- If not clear, describe.
Neurologic Examination:
The patient is awake, confused and oriented x person alone. (He is able to follow commands and answer questions appropriately. There is no aphasia or dysarthria.
Attention concentration and memory are impaired.
On cranial nerve assessment, pupils are 3 mm bilateral, round and reactive to light and accommodation. Visual johnson are full. Extraocular movements are intact. Facial sensations are intact and bilaterally symmetrical, there is no facial asymmetry.
Hearing is intact bilaterally to normal conversation volume. Tongue palate and uvula are midline. Sternocleidomastoid strengths are full bilaterally.
Motor strengths are 5/5 bilateral upper and lower extremities on medical research [place] scale. There is no drift or involuntary movement noted. Deep tendon reflexes are 2+ bilateral upper and lower extremities and Babinski is absent bilaterally.
Sensations of pain, touch, temperature and vibration are intact and bilaterally symmetrical. There was no extinction noted on double simultaneous stimulation. Coordination is intact by finger to nose bilaterally.
Lab Results: See addendum
Neuro Imaging:
Impression:
(Mr. SHARLENE FUENTES is a 39 year old M who has presented to the hospital with (symptoms/chief complaint) of cellulitis of right wrist . Nurse noted Involuntary spasms of LUE
Differentials for the patient's presentation include:
1. Tardive dyskinesia
2. Drug-induced dystonia
Recommendations:
1. Decrease Risperdal
2. Avoid Haldol
3. Cogentin 1 mg twice a day
4. CT head
5. EEG
6. Continue antibiotics: Ceftriaxone and Vancomycin
Discussed patient care with: Hospitalist
Allergies
-
Allergies
Allergy/AdvReac Type Severity Reaction Status Date / Time
No Known Allergies Allergy Verified 05/31/24 13:37
Vital Signs and Labs
-
Vital Signs and Labs:
Vital Signs
Temp Pulse Resp BP Pulse Ox
37.2 C 102 18 141/87 99
06/02/24 19:05 06/02/24 19:05 06/02/24 19:05 06/02/24 19:05 06/02/24 19:05
Lab Results
06/02/24 06:17
06/02/24 06:17
Sodium 150 mmol/L (135-145) H 06/02/24 06:17
Potassium 4.8 mmol/L (3.5-5.1) 06/02/24 06:17
BUN 24 mg/dl (9-20) H 06/02/24 06:17
Glucose 84 mg/dl (70-99) 06/02/24 06:17
Calcium 9.0 mg/dl (8.4-10.2) 06/02/24 06:17
Medications
-
Active Medications
Generic Name Dose Route Start Last Admin
Trade Name Freq PRN Reason Stop Dose Admin
Acetaminophen 650 mg 05/31/24 17:44
Acetaminophen 325 Mg Tablet PO 06/28/24 17:43
Q4HPRN PRN
mild pain/GRANT/temp> 100.4F
Aspirin 81 mg 06/01/24 08:00 06/02/24 07:49
Aspirin 81 Mg (Enteric Coated) Tablet PO 06/29/24 07:59 81 mg
DAILY PAT Administration
Benztropine Mesylate 1 mg 06/02/24 20:00
Benztropine 1 Mg Tablet PO 06/30/24 19:59
BID PAT
Bisacodyl 10 mg 05/31/24 17:44
Bisacodyl 10 Mg Rectal Suppository RECTAL 06/28/24 17:43
[id number] PRN
constipation
Fenofibrate 48 mg 05/31/24 22:00 06/01/24 21:27
Fenofibrate 48 Mg Tablet PO 06/28/24 21:59 48 mg
HS PAT Administration
Haloperidol Lactate 1 mg 05/31/24 18:01 06/01/24 02:44
Haloperidol 5 Mg/Ml 1 Ml Vial IV 06/28/24 18:00 1 mg
Q6HPRN PRN Administration
agitation
Heparin Sodium 5,000 units 05/31/24 20:00 06/02/24 07:49
Heparin 5,000 Units/Ml 1 Ml Vial SC 06/28/24 19:59 5,000 units
Q12 PAT Administration
Dextrose 1,000 mls @ 120 mls/hr 06/02/24 08:00 06/02/24 16:35
D5w IV 1,000 mls
.Q8H20M PAT Administration
Polyethylene Glycol 17 grams 05/31/24 17:44
Polyethylene Glycol Powder 17 Grams Packet PO 06/28/24 17:43
DAILYPRN PRN
constipation
Risperidone 2 mg 06/02/24 14:53
Risperidone 1 Mg Tablet PO 06/28/24 21:59
HS PAT
Senna/Docusate Sodium 1 tablet 05/31/24 17:44
Docusate W/Senna (Chantel-Colace) Tablet PO 06/28/24 17:43
BIDPRN PRN
constipation
Sodium Chloride 0 flush 05/31/24 18:00
Sodium Chloride 0.9% (Flush) Syringe IV 06/28/24 17:59
PER PROTOCOL PAT
Home Medications
�Medication �Instructions �Recorded
aspirin 81 mg tablet,delayed 81 mg PO DAILY #30 tabs 05/28/24
release
fenofibrate nanocrystallized 48 mg 48 mg PO HS #30 tabs 05/28/24
tablet
doxycycline hyclate 100 mg capsule 100 mg PO Q12H Infection 05/31/24
risperidone 3 mg tablet 3 mg PO HS Neurological Condition 05/31/24
[2024-06-02 15:50] VITALS: BP 129/87
[2024-06-02 19:05] VITALS: BP 141/87
[2024-06-02] MEDS: COGENTIN 1 MG PO (20:14)
[2024-06-02] MEDS: TRICOR 48 MG PO (21:06)
[2024-06-02] MEDS: RISPERDAL 2 MG PO (21:06)
[2024-06-02 23:10] VITALS: BP 149/86
[2024-06-03] MEDS: D5W 1000 IV (03:01)
[2024-06-03 03:05] VITALS: BP 134/91
[2024-06-03 06:28] LABS: Hematocrit 36.4 % (39.0-52.0); Hemoglobin 12.3 g/dL (13.0-18.0); Mean Corp Hgb Conc. 33.8 g/dL (33.0-37.0); Mean Corpuscular Hgb 29.3 pg (27.0-31.0); Mean Corpuscular Volume 86.7 fL (80.0-94.0); Mean Platelet Volume 10.1 fL (7.4-10.4); Platelet Count 403 10^3/uL (130-400); Red Cell Dist. Width 13.2 % (11.5-14.5); White Blood Cell Count 14.5 10^3/uL (4.8-10.8)
[2024-06-03 07:02] LABS: ALT (SGPT) 75 U/L (0-50); AST (SGOT) 58 U/L (17-59); Albumin 3.5 g/dl (3.5-5.0); Alkaline Phosphatase 62 U/L (38-126); Blood Urea Nitrogen 17 mg/dl (9-20); Calcium 9.2 mg/dl (8.4-10.2); Carbon Dioxide 27 mmol/L (22-30); Chloride 105 mmol/L (98-107); Estimated Creatinine Clearance 120 ml/min; Glucose 118 mg/dl (70-99); Magnesium 1.9 mg/dl (1.6-2.3); Potassium 4.3 mmol/L (3.5-5.1); Sodium 140 mmol/L (135-145); Total Bilirubin 0.7 mg/dl (0.2-1.3); Total Protein 6.6 g/dl (6.3-8.2); eGFR > 60.00
[2024-06-03 07:14] LABS: Creatine Phosphokinase 568 U/L (55-170)
[2024-06-03 07:35] VITALS: BP 153/99
[2024-06-03] MEDS: COGENTIN 1 MG PO ×2 (08:06→20:17)
[2024-06-03] MEDS: ASPIR LOW (ENTERIC COATED) 81 MG PO (08:06)
[2024-06-03] MEDS: HEPARIN 5000 UNITS SC ×2 (08:06→20:18)
--- NOTE | 2024-06-03 11:28 | EEG.RPT ---
Electroencephalogram Report
Recording
Date of EE06/03/24
Type of EEG: Routine
Length of EEG recordin minutes
Done with Video Recording: Yes
Patient Status: Inpatient
Recording Conditions: Awake, Drowsy and Asleep
Hyperventilation Performed: No
Photic Stimulation Performed: Yes
Report
LESS THAN 1 HOUR EEG REPORT
EEG INTERPRETATION:
Unremarkable EEG for age
CLINICAL CORRELATION:
A normal EEG does not rule out a diagnosis of epilepsy. If clinical suspicion for seizure persists, a prolonged recording may be warranted.
Clinical correlation is advised.
METHODS:
A 21 channel digitized electroencephalogram (EEG) was performed at the bedside. The 10/20 international system of electrode placement was used with ECG and lateral/vertical eye movements recorded. Persyst quantitative EEG analysis was performed.
ELECTROENCEPHALOGRAPHER IMPRESSION(S):
Quality of study
Good
Background
Unremarkable, well maintained, medium amplitude alpha-frequency and unremarkable anterior-posterior voltage gradient
With eye opening the background activity changed to a low voltage mixture of frequencies.
Sleep
Drowsiness present
Stage 1 sleep present
Stage 2 sleep recorded
Photic Stimulation
Did not activate the record
ECG
Normal sinus rhythm
[2024-06-03 12:05] VITALS: BP 139/88
--- NOTE | 2024-06-03 13:04 | W.PN.HOSP.TC ---
Today's Communication/Plan
-
EEG
Reduce Risperdal
Start Cogentin
Avoid Haldol
stop fluids, monitor Na
Imaging per neuro
Assessment / Plan
Assessment / Plan
HPI: 39-year-old male unknown past medical history presenting from detention for altered mental status once again.
He was recently admitted from 05/23 to 05/28 with acute metabolic encephalopathy and rhabdomyolysis secondary to right wrist and left ankle cellulitis.� He was treated with IV fluids and IV antibiotics transitioned to doxycycline as per ID.� There was
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
He returned due to worsening mental status with now decreased oral intake.�No seizure activity noted.�
In the ED, patient was tachycardic. Labs show leukocytosis, hypernatremia with sodium of 149. Creatinine of 2. Rhabdomyolysis with CK of 3400 and transaminitis.� Patient clinically hypovolemic with recurrent rhabdomyolysis.�Treated with IV fluids
for hypernatremia, MIRIAM and rhabdomyolysis.
Right wrist swelling appeared to have improved although still swollen with decreased range of motion and tenderness to palpation and warm.
On DOA, should be the last day of doxycycline.�Vancomycin/ceftriaxone restarted.�
A/P:
# L hand spasm/myoclonus/dystonia, unclear etiology
Possibly tardive dyskinesia, drug-induced dystonia
check EEG�unremarkable
Neuro CS
Psych eval
Reduce Risperdal
Start Cogentin
Avoid Haldol
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
# Possible sepsis POA (leucocytosis and tachycardia)
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
ceftriaxone and vancomycin stopped by ID�does not appear to be infection related
Tylenol prn for fever
See plan below
Monitor fever curve, white count, no resources time
Leukocytosis most likely reactive
CT angio head: Cytotoxic lesion of the corpus callosum - f/u neuro recs; no noted abn on ct head
#MIRIAM
#hypernatremia
resolved with IVF - stop ivf and monitor
# Mild rhabdo, ?from L hand spasm
CPK 3000, cont to trend CPK
stop ivf
-improved
# Chronic transaminitis
Recent Abd US without acute intra-abdominal process
Cont to follow LFT
# HLD
cont fenofibrate
# anxiety
cont risperidone
DVT prophylaxis-heparin sq
CODE status-full code
DW RN
DW ID
Total time spent on today's encounter was 50 minutes which included time spent in counseling the patient/family regarding diagnosis and treatment plan as listed above, goals of care, and symptom management. Case was discussed with nursing staff,
specialists, and care coordinators/case management. All labs and imaging personally reviewed by me. Remainder the time spent in detailed review of previous records, lab data, imaging, and other medical provider documentation.
Anticipated Discharge: > 48 hours
Subjective/Interval History
-
Date of Service: June 03, 2024
Tremors appear to have improved
Objective Data
-
Labs:
Laboratory Results
06/03/24
06:12
WBC 14.5 H
Hgb 12.3 L
Hct 36.4 L
Plt Count 403 H
Sodium 140 D
Potassium 4.3
Chloride 105
Carbon Dioxide 27
BUN 17
Creatinine 0.9
Glucose 118 H
Calcium 9.2
Total Bilirubin 0.7
AST 58
ALT 75 H
Alkaline Phosphatase 62
Vital Signs:
Vital Signs
Temp Pulse Resp BP Pulse Ox
98.5 F 91 17 139/88 99
06/03/24 12:05 06/03/24 12:05 06/03/24 12:05 06/03/24 12:05 06/03/24 12:05
I&O
06/02/24 06/03/24 06/04/24
06:59 06:59 06:59
Intake Total 1800 / 1800 2880 / 2880
Balance 1800 / 1800 2880 / 2880
Review of Systems
-
History Source: Patient
All other systems: Not reviewed unless documented
Physical Exam
-
General: Well Developed and No Apparent Distress
HEENT: Normocephalic, Atraumatic and Moist Mucous Membranes
Respiratory: Clear to Auscultation and Non Labored Respirations; Negative Accessory Resp Muscle Use
Cardiac: Regular Rhythm and S1/S2; Negative Murmur, Rub or Gallop
GI: Soft, Nontender, Nondistended and Normal Bowel Sounds; Negative Organomegaly
Rectal: Deferred by Provider
Musculoskeletal: No Clubbing, No Cyanosis and No Edema
Skin: Negative Rash
Neuro: Awake
Psych: Calm; Negative Intact Judgement/Insight
Data Reviewed
-
CT Scan: Image personally visualized and interpreted and Report Reviewed by me
Labs: Labs Reviewed by me
--- NOTE | 2024-06-03 13:12 | W.PN.UPDATE ---
Update Note
Progress Note Update
Pt seen, resting calmly in leg shackles and soft wrist restraints. Pt awake, making eye contact and giving limited answers. Pt oriented to place, time on the clock, month (off on the date). Pt offers no acute complaints. He shows no overt signs
of psychosis. Pt states he used to have an outpatient therapist; denies hx of psychiatric treatment; denies psychotic symptoms. No EPS evident this morning. Risperidone tapered to 2 mg HS and Cogentin started- 1 mg T I D yesterday by weekend
psychiatrist.
Imp: Encephalopathy of unknown etiology
Rec: monitor on Risperidone, consider tapering further, continue Cogentin. Can continue Haldol 1 mg prn- IV route does not cause EPS
will follow
[2024-06-03 15:15] VITALS: BP 138/87
[2024-06-03] MEDS: D5W IV (15:46)
--- NOTE | 2024-06-03 15:46 | W.PN.ID1 ---
Date of Service
Date of Service: June 03, 2024
Today's Communication
Sign off.
Assessment / Plan
Ongoing encephalopathy of unclear etiology
Leukocytosis
Thrombocytosis
Hyponatremia
MIRIAM
Transaminitis
Rhabdomyolysis
Recommendations:
No evidence of ongoing SSTI.
Observe off antibiotics.
Encephalopathy appears to have resolved with modification of psychiatric medicines.
Monitor white count / temperature curve.
Little more to offer from a Infectious Disease standpoint.
Will see again at your request.
Chief Complaint
-: Other (Encephalopathy)
Subjective / Review of Systems
Patient seen and examined. Reports feeling well today. Prior muscle contractures have resolved.
Review of Systems: No Fever and No Chills
Vital Signs / Physical Exam
Vital Signs
Vital Signs
Temp Pulse Resp BP Pulse Ox
98.5 F 106 16 138/87 99
06/03/24 15:15 06/03/24 15:15 06/03/24 15:15 06/03/24 15:15 06/03/24 15:15
Physical Exam
Constitutional: Comfortable and Non-toxic
Eyes: Sclera Anicteric
Pulmonary: Non Labored
Skin: Negative Rash or Jaundice
Neurological: Awake, Alert, Oriented and Other (Prior posturing has resolved.)
Psychological: Calm
Objective Data
Lab Data
Lab Results
06/03/24 06:12
06/03/24 06:12
Estimated Creat Clear 120 ml/min 06/03/24 06:12
Total Bilirubin 0.7 mg/dl (0.2-1.3) 06/03/24 06:12
AST 58 U/L (17-59) 06/03/24 06:12
ALT 75 U/L (0-50) H 06/03/24 06:12
Alkaline Phosphatase 62 U/L (38-126) 06/03/24 06:12
Most recent labs reviewed.
Imaging:
05/25/2024 MRI brain without contrast: A 17 mm cytotoxic lesion in the splenium of the corpus callosum. Finding may be seen in a variety of entities including seizure disorder, infections and metabolic disturbances. No intracranial hemorrhage. No
mass effect to suggest neoplasm. No abnormal extra-axial fluid collections noted.
[2024-06-03 19:10] VITALS: BP 128/81
[2024-06-03] MEDS: TRICOR 48 MG PO (21:01)
[2024-06-03] MEDS: RISPERDAL 2 MG PO (21:01)
--- NOTE | 2024-06-03 22:21 | PTCARENOTE ---
Pt starting vomiting black, coffee ground emesis. Heme tested and came back positive. DIETITIAN CHIEF made aware, new orders for zofran, protonix, and labs obtained. Pt cleaned up, basin at bedside. Pt diet order changed to NPO. VSS. Will continue to monitor.
[2024-06-03] MEDS: ZOFRAN 4 MG IV (22:33)
[2024-06-03] MEDS: PROTONIX IV 80 MG IV (22:44)
[2024-06-03] MEDS: NSS (PRESERVATIVE FREE) 20 ML IV (22:44)
[2024-06-03 23:08] LABS: Hematocrit 36.7 % (39.0-52.0); Hemoglobin 12.6 g/dL (13.0-18.0)
--- NOTE | 2024-06-03 23:09 | W.PN.UPDATE ---
Update Note
Progress Note Update
RN reporting pt vomited coffee ground emesis all over bed. RN did heme test and was positive.
Pt was already cleaned up by time of my arrival. Asked nurse to take pic if pt vomits again.
Vitals stable
For now will:
hold hepari sq
check hh, bmp
protonix 80mg iv x1 and then 40mg bid
consult GI
Make NPO for now
[2024-06-03 23:22] VITALS: BP 133/87
[2024-06-03 23:22] LABS: Blood Urea Nitrogen 19 mg/dl (9-20); Calcium 9.1 mg/dl (8.4-10.2); Carbon Dioxide 25 mmol/L (22-30); Chloride 104 mmol/L (98-107); Estimated Creatinine Clearance 120 ml/min; Glucose 124 mg/dl (70-99); Potassium 4.8 mmol/L (3.5-5.1); Sodium 137 mmol/L (135-145); eGFR > 60.00
[2024-06-04 03:45] VITALS: BP 132/82
[2024-06-04 07:22] LABS: Hematocrit 38.1 % (39.0-52.0); Hemoglobin 12.8 g/dL (13.0-18.0); Mean Corp Hgb Conc. 33.6 g/dL (33.0-37.0); Mean Corpuscular Hgb 29.9 pg (27.0-31.0); Mean Platelet Volume 10.2 fL (7.4-10.4); Platelet Count 369 10^3/uL (130-400); Red Blood Cell Count 4.28 10^6/uL (4.70-6.10); White Blood Cell Count 16.7 10^3/uL (4.8-10.8)
[2024-06-04 07:32] VITALS: BP 142/72
[2024-06-04 07:46] LABS: Blood Urea Nitrogen 17 mg/dl (9-20); Calcium 9.3 mg/dl (8.4-10.2); Carbon Dioxide 27 mmol/L (22-30); Chloride 103 mmol/L (98-107); Creatine Phosphokinase 275 U/L (55-170); Estimated Creatinine Clearance 108 ml/min; Glucose 103 mg/dl (70-99); Potassium 4.4 mmol/L (3.5-5.1); Sodium 139 mmol/L (135-145); eGFR > 60.00
[2024-06-04] MEDS: ASPIR LOW (ENTERIC COATED) 81 MG PO (07:48)
[2024-06-04] MEDS: PROTONIX IV 40 MG IV ×2 (07:48→21:41)
[2024-06-04] MEDS: NSS (PRESERVATIVE FREE) 10 ML IV ×2 (07:49→21:42)
[2024-06-04] MEDS: COGENTIN 1 MG PO ×2 (07:52→21:40)
--- NOTE | 2024-06-04 08:44 | CON.GI ---
Addendum entered and electronically signed by Merlene Arias MD 06/04/24 17:11:
I saw and examined the patient.
The GLASS FRAME FITTER or PA's note was reviewed and I agree with the note.
Comment: 39-year-old prisoner presenting with coffee-ground emesis in the setting of doxycycline and aspirin. He has had no further episodes of vomiting. Hemoglobin has remained stable.
Suspect inflammation from doxy/ASA.
Will monitor Hb.
If no further vomiting tomorrow can advance diet.
Continue PPI BID.
Original Note:
Consultation
-
Date/Time Consultation Requested: 06/03/242303
Date/Time Consultation Performed: 06/04/24843
Requesting Provider: NICKI Stevenson
Performing Provider: Dr. Arias/NICKI Camacho
Reason for Consultation: coffee ground emesis
Medical History
Chief Complaint / HPI
Chief Complaint: change in mental status, poor oral intake
History of Present Illness:
39-year-old male who is currently incarcerated at [facility] since 05/20/2024 who was actually here at [facility] from 05/23/2024 through 05/28/2024 for change in mental status. At that time he was exhibiting odd
behaviors drinking out of the toilet and drinking his own urine. He had acute encephalopathy with reported hallucinations and agitation. He is UDS was positive for marijuana only. He had an LP and treated empirically with acyclovir. This was
discontinued. He had a negative EEG. He was seen by infectious disease and neurology. He had an MRI of the brain that showed a 17 mm cytotoxic lesion in the corpus callosum which the differential of a possible CVA given negative CSF findings less
likely infection versus vascular. He was started on aspirin 81 mg and he was also started on fenofibrate as a statin could not be started given rhabdo. Sepsis was ruled out. He had rhabdomyolysis that resolved. He also had right upper extremity
and left ankle cellulitis without purulence that was treated with doxycycline 100 mg twice daily that should have been completed on 05/31/2024. He returned back to the emergency room on 05/31/2024 with an acute change of mental status and poor oral
intake. The patient is admitted with acute metabolic encephalopathy, also dehydration with acute kidney injury/hypernatremia and mild rhabdo with CPK of 3000. The patient was having muscle twitches, these have since resolved. On the evening of
06/03/2024 the patient vomited coffee-ground emesis over the entire bed. His heparin subcu was held. Protonix 80 mg x 1 was started then followed by 40 mg twice daily and we are consulted for the same. The patient has had no further episodes of
vomiting. He has had no bowel movements. His hemoglobin has remained stable this entire admission. It is also stable and increased from prior admission. WBC 16.7, hemoglobin 12.8, hematocrit 38.1, platelets 369, sodium 139, potassium 4.4,
chloride 103, CO2 27, BUN 17, creatinine 1.0, glucose 103, total bilirubin 0.7, direct 0.0, AST 58, ALT 75, alk phos 62, CK2 75 down from 568, B12 786
Past Medical History
Past Medical History: Hypercholesterolemia and Other (Cellulitis, rhabdomyolysis)
Past Surgical History: None and Other
Social History
Drug: Marijuana
Family History
Family History: Other (Patient would not speak to me would only nod head. However denies any family history of GI malignancy)
Allergies / Home Medications
Allergy/AdvReac Type Severity Reaction Status Date / Time
No Known Allergies Allergy Verified 05/31/24 13:37
�Medication �Instructions �Recorded
aspirin 81 mg tablet,delayed 81 mg PO DAILY #30 tabs 05/28/24
release
fenofibrate nanocrystallized 48 mg 48 mg PO HS #30 tabs 05/28/24
tablet
doxycycline hyclate 100 mg capsule 100 mg PO Q12H Infection 05/31/24
risperidone 3 mg tablet 3 mg PO HS Neurological Condition 05/31/24
Review of Systems
-
Unable to obtain full review of systems at this time due to: Other (Patient nods head yes and now and denies any other difficulties however he will not speak to me)
Vital Signs
Temp Pulse Resp BP Pulse Ox
98.1 F 105 16 142/72 100
06/04/24 07:32 06/04/24 07:32 06/04/24 07:32 06/04/24 07:32 06/04/24 07:32
Physical Exam
Exam
General: No Apparent Distress and Other (Bilateral lower extremity shackles, upper extremity soft restraints)
HEENT: Anicteric
Respiratory: Clear (Anterior)
Cardiac: Regular Rhythm
GI: Soft, Non Tender, Non Distended and Normal Bowel Sounds
Skin: Warm and Dry
Neuro: Awake and Alert
Psych: Calm and Other (Would gaze to the right on occasion as if somebody was present even though nobody was, would start nodding and acknowledging as if someone was there. Left hand would start twisting and turning)
Results
WBC 16.7 10^3/uL (4.8-10.8) H 06/04/24 07:02
Hgb 12.8 g/dL (13.0-18.0) L 06/04/24 07:02
Hct 38.1 % (39.0-52.0) L 06/04/24 07:02
MCV 89.0 fL (80.0-94.0) 06/04/24 07:02
Plt Count 369 10^3/uL (130-400) 06/04/24 07:02
Absolute Neuts (auto) 11.4 10^3/uL (1.4-6.5) H 05/31/24 13:44
Sodium 139 mmol/L (135-145) 06/04/24 07:02
Potassium 4.4 mmol/L (3.5-5.1) 06/04/24 07:02
Chloride 103 mmol/L (98-107) 06/04/24 07:02
Carbon Dioxide 27 mmol/L (22-30) 10/08/24 07:02
BUN 17 mg/dl (9-20) 06/04/24 07:02
Creatinine 1.0 mg/dL (0.7-1.3) 06/04/24 07:02
Calcium 9.3 mg/dl (8.4-10.2) 06/04/24 07:02
Total Bilirubin 0.7 mg/dl (0.2-1.3) 06/03/24 06:12
AST 58 U/L (17-59) 06/03/24 06:12
ALT 75 U/L (0-50) H 06/03/24 06:12
Alkaline Phosphatase 62 U/L (38-126) 06/03/24 06:12
Diagnostic Image Results:
05/24/24 US Abd: IMPRESSION:
1. No acute intra-abdominal process identified sonographically.
2. Limited evaluation of midline structures secondary to overlying bowel gas as above.
Abd XR 05/24/24:
IMPRESSION:
1. Negative for radiopaque foreign body.
2. Nonobstructive bowel gas pattern.
3. Urinary bladder moderately distended with urine.
Prior GI Procedures:
EGD: denies
Colonoscopy:denies
Assessment / Plan
-
39-year-old male who is currently incarcerated at [facility] since 05/20/2024 who was actually here at [facility] from 05/23/2024 through 05/28/2024 for change in mental status. He had an LP and treated empirically
with acyclovir. This was discontinued. He was seen by infectious disease and neurology. MRI of the brain that showed a 17 mm cytotoxic lesion in the corpus callosum and was started on aspirin 81 mg and fenofibrate. Statin could not be started
given his rhabdo. He also was treated for cellulitis with doxycycline until 05/31/2024. He returned back to [facility] on 05/31/2024 with again change in mental status and poor p.o. intake. He had involuntary spasms. He was on ceftriaxone
and vancomycin. Neurology is seeing him for questionable tardive dyskinesia versus drug-induced dystonia. Antibiotics were discontinued. On the evening of 06/03/2024 the patient vomited a large amount of coffee-ground emesis. I did speak to the
RN who was taking care of him over the weekend. She states that he was eating very well. He did not have any kind of complaints from a GI perspective. No signs of odynophagia or dysphagia. He has not had any melena. The patient would not speak
to me today however would not add in an appropriate manner. He denies any nausea, vomiting, odynophagia or dysphagia. In the setting of recent doxycycline use and aspirin it is possible that he has esophagitis, gastritis or ulceration. The
patient's hemoglobin has remained completely stable during this hospitalization. It is also the same as prior hospitalization. His BUN was elevated however in proportion to creatinine. After IV fluids this ratio was normalized. The patient was
given a bolus of Protonix 80 and remains on 40 mg IV twice daily. The patient is in 4 point restraints 2 leg shackles mandated by the [facility]. He was in 2 hand shackles mandated by the [facility]
however due to his cellulitis nursing asked for this to be changed to soft restraints for patient comfort. The patient has a 4 point restraint order at the mandate of [facility]. I did discuss with nursing clinical director and RN as
well as the 2 officers at bedside that I would recommend that the patient be had of bed at least 45 degrees.
Impression:
Coffee ground emesis x 1-> likely drug-induced esophagitis from recent use of doxycycline and aspirin. Patient was not eating or drinking much in correctional facility.
Left hand spasm/myoclonus/dystonia unclear etiology
Acute metabolic encephalopathy
MIRIAM
Mild AST elevation, likely secondary to rhabdo. negative recent ultrasound. Negative hepatitis studies. Patient immune to hepatitis A&B.
Rhabdomyolysis-> improving
Plan:
-Continue pantoprazole 40 mg IV twice daily
-Carafate 1 g suspension 4 times daily
-Trend CBC
-Hold on any endoscopic intervention for now unless signs of active bleeding or precipitous drop in hemoglobin
-Can start with clear liquids today.
-Would make sure head of bed at least 45 degrees at all times.
-Times a meal make sure head of bed at 90 degrees and keep at least 45 to 90 degrees for 2 hours after meals, given patient in 4 point restraints as mandated by [facility].
-Further recommendations to be forthcoming.
-
-
Thank you for consultation and allowing me to participate in the patient's care. Please call the semiconductor wafers saw operator GI physician during the after hours with any questions or concerns.
--- NOTE | 2024-06-04 11:38 | W.PN.UPDATE ---
Update Note
Progress Note Update
Patient seen at bedside with [facility] guards at bedside, reviewed chart, discussed with RN. Patient did not engage with me in conversation other than head shake for yes or no with some questions. It is reported that patient had coffee ground emesis
overnight. GI consult in place. Right wrist is reportedly less swollen. He was able to demonstrate full ROM. There was a concern that the issues with his wrist may have been related to handcuffs and it was requested they be removed. Guards had
concerns and requested soft limb restraints. Denies any side effects with the addition of Cogentin or decrease in Risperdal.
Impression/Recommendation: Encephalopathy of unknown etiology - monitor on Risperidone, t/c tapering further if warranted, continue Cogentin. Haldol 1 mg IV available as needed as this not likely to cause EPS. Psych will follow.
[2024-06-04] MEDS: CARAFATE SUSPENSION 1 GM PO ×3 (12:06→21:41)
--- NOTE | 2024-06-04 12:32 | W.PN.HOSP.TC ---
Today's Communication/Plan
-
Reduce Risperdal
Cogentin
-IV Haldol ok as per psych
PPI IV BID
Carafate
monitor cbc
make sure head of bed at least 45 degrees at all times.
At Times of meals - make sure head of bed at 90 degrees and keep at least 45 to 90 degrees for 2 hours after meals, given patient in 4 point restraints as mandated by [facility].
Assessment / Plan
Assessment / Plan
HPI: 39-year-old male unknown past medical history presenting from alf for altered mental status once again.
He was recently admitted from 05/23 to 05/28 with acute metabolic encephalopathy and rhabdomyolysis secondary to right wrist and left ankle cellulitis.� He was treated with IV fluids and IV antibiotics transitioned to doxycycline as per ID.� There was
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
He returned due to worsening mental status with now decreased oral intake.�No seizure activity noted.�
In the ED, patient was tachycardic. Labs show leukocytosis, hypernatremia with sodium of 149. Creatinine of 2. Rhabdomyolysis with CK of 3400 and transaminitis.� Patient clinically hypovolemic with recurrent rhabdomyolysis.�Treated with IV fluids
for hypernatremia, MIRIAM and rhabdomyolysis.
Right wrist swelling appeared to have improved although still swollen with decreased range of motion and tenderness to palpation and warm.
On DOA, should be the last day of doxycycline.�Vancomycin/ceftriaxone restarted.�
A/P:
# L hand spasm/myoclonus/dystonia, unclear etiology
Possibly tardive dyskinesia, drug-induced dystonia
check EEG�unremarkable
Neuro CS
Psych eval
Reduce Risperdal
Start Cogentin
Avoid Haldol
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
# Possible sepsis POA (leucocytosis and tachycardia)
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
ceftriaxone and vancomycin stopped by ID�does not appear to be infection related
Tylenol prn for fever
See plan below
Monitor fever curve, white count, no resources time
Leukocytosis most likely reactive
CT angio head: Cytotoxic lesion of the corpus callosum - f/u neuro recs; no noted abn on ct head
#Coffee Ground emesis
-likely drug induced esophagitis from recent doxycycline and asa
- PPI BID IV
-Carafate 1gm suspension qid
-trend cbc
-hold on egd, monitoring further bleeding, CBC
-CLD
-Would make sure head of bed at least 45 degrees at all times.
-Times a meal make sure head of bed at 90 degrees and keep at least 45 to 90 degrees for 2 hours after meals, given patient in 4 point restraints as mandated by [facility].
#MIRIAM
#hypernatremia
resolved with IVF - stop ivf and monitor
# Mild rhabdo, ?from L hand spasm
CPK 3000, cont to trend CPK
stop ivf
-improved
# Chronic transaminitis
Recent Abd US without acute intra-abdominal process
Cont to follow LFT
# HLD
cont fenofibrate
# anxiety
cont risperidone
DVT prophylaxis-heparin sq on hold due to coffee ground emesis - cont to monitor cbc and if stable, can resume
CODE status-full code
DW RN
DW ID
Total time spent on today's encounter was 51 minutes which included time spent in counseling the patient/family regarding diagnosis and treatment plan as listed above, goals of care, and symptom management. Case was discussed with nursing staff,
specialists, and care coordinators/case management. All labs and imaging personally reviewed by me. Remainder the time spent in detailed review of previous records, lab data, imaging, and other medical provider documentation.
Anticipated Discharge: > 48 hours
Subjective/Interval History
-
Date of Service: June 04, 2024
had ?coffee ground emesis last night
Objective Data
-
Labs:
Laboratory Results
06/04/24
07:02
WBC 16.7 H
Hgb 12.8 L
Hct 38.1 L
Plt Count 369
Sodium 139
Potassium 4.4
Chloride 103
Carbon Dioxide 27
BUN 17
Creatinine 1.0
Glucose 103 H
Calcium 9.3
Vital Signs:
Vital Signs
Temp Pulse Resp BP Pulse Ox
98.1 F 105 16 142/72 100
06/04/24 07:32 06/04/24 07:32 06/04/24 07:32 06/04/24 07:32 06/04/24 07:32
I&O
06/03/24 06/04/24 06/05/24
06:59 06:59 06:59
Intake Total 2880 / 2880 1440 / 1440
Output Total 1100 / 1100
Balance 2880 / 2880 340 / 340
Review of Systems
-
History Source: Patient
All other systems: Not reviewed unless documented
Data Reviewed
-
CT Scan: Image personally visualized and interpreted and Report Reviewed by me
Labs: Labs Reviewed by me
--- NOTE | 2024-06-04 12:37 | CM ---
Reviewed chart, patient with heme + emesis last evening, diet downgraded to clears. Will continue to watch for needs.
Plan: Case management will continue to follow and assist with discharge planning. [facility].
--- NOTE | 2024-06-04 13:20 | PN.CDI ---
CDI
- -
CDI:
Physician Documentation Request
Admit Date: 05/31/24 16:27
Dear Doctor Ney,
Please review the following and provide your response in the progress notes.
Clinical Indicators:
PN, 06/04
# Acute metabolic encephalopathy
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
# Possible sepsis POA (leucocytosis and tachycardia)
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
#...ceftriaxone and vancomycin stopped by ID�does not appear to be infection related
#MIRIAM
#hypernatremia
# Mild rhabdo, ?from L hand spasm
#...CPK 3000, cont to trend CPK
# Chronic transaminitis
#...Recent Abd US without acute intra-abdominal process
Please clarify which most accurately describes the patient:
Sepsis, POA
Systemic manifestations of infection, with 2 or more SIRS criteria which include:
Fever > 100.4 degrees F or hypothermia < 96.8 degrees F
Leukocytosis - WBC > 12,000 or leukopenia, WBC < 4,000 or > 10% bands
Tachycardia - > 90 beats per minute
Tachypnea - RR > 20 breaths per minute or PaCO2 < 32 mmHg
Source: Merck Manual 2013
Indicate the known or suspected underlying infection,
such as UTI, pneumonia or cellulitis
Indicate if a suspected bacterial infection of unknown source
Indicate if there is associated organ dysfunction, such as renal and/or encephalopathy
SIRS due to a non-infectious source
Indicate the known or suspected etiology
Indicate if there is associated organ dysfunction,
such as renal and/or encephalopathy
Other(please specify)
Use of terms such as suspected, likely, concern for, or probable (associated with a specific diagnosis that is being evaluated, monitored, or treated as if it exists) are acceptable and can be coded in the inpatient setting, when documented at the
time of discharge.
Thank you,
Rayne Royal RN BSN CCDS
CDI Specialist
please contact via tiger text
Please use your independent medical judgment in providing your response.
[2024-06-04 15:38] VITALS: BP 132/97
[2024-06-04 19:45] VITALS: BP 146/90
[2024-06-04] MEDS: TRICOR 48 MG PO (21:40)
[2024-06-04] MEDS: RISPERDAL 2 MG PO (21:41)
[2024-06-04 23:00] VITALS: BP 130/88
--- NOTE | 2024-06-05 04:20 | PTCARENOTE ---
Pt removed condom catheter twice during this shift. Pt restless, unable to sit still. Pt restrained on all extremities, b/l legs and L arm are handcuffed to bed. R arm is in soft limb restraint, per order. SUPERVISOR LANDSCAPE made aware, no new orders obtained.
This RN replaced condom catheter the second time. This RN cut a hole in bed sheet and threaded the catheter tubing underneath to prevent pt from pulling on it. Pt has brief on. Sonam at bedside, told to inform RN if this happens again. Tried to
educate the patient on the importance of leaving catheter on, but pt unable to learn. Will continue to monitor.
[2024-06-05 07:00] VITALS: BP 129/83
[2024-06-05 07:00] LABS: Hematocrit 39.2 % (39.0-52.0); Hemoglobin 13.3 g/dL (13.0-18.0); Mean Corp Hgb Conc. 33.9 g/dL (33.0-37.0); Mean Corpuscular Hgb 29.1 pg (27.0-31.0); Mean Corpuscular Volume 85.8 fL (80.0-94.0); Mean Platelet Volume 10.3 fL (7.4-10.4); Platelet Count 391 10^3/uL (130-400); Red Blood Cell Count 4.57 10^6/uL (4.70-6.10); White Blood Cell Count 12.9 10^3/uL (4.8-10.8)
[2024-06-05] MEDS: PROTONIX IV 40 MG IV ×2 (08:42→21:05)
[2024-06-05] MEDS: ASPIR LOW (ENTERIC COATED) 81 MG PO (08:42)
[2024-06-05] MEDS: COGENTIN 1 MG PO ×2 (08:42→21:10)
[2024-06-05] MEDS: NSS (PRESERVATIVE FREE) 10 ML IV ×2 (08:42→21:06)
[2024-06-05] MEDS: CARAFATE SUSPENSION 1 GM PO ×4 (08:47→21:05)
[2024-06-05 08:59] LABS: Blood Urea Nitrogen 14 mg/dl (9-20); Calcium 9.3 mg/dl (8.4-10.2); Carbon Dioxide 27 mmol/L (22-30); Chloride 101 mmol/L (98-107); Estimated Creatinine Clearance 108 ml/min; Glucose 102 mg/dl (70-99); Magnesium 1.8 mg/dl (1.6-2.3); Potassium 4.4 mmol/L (3.5-5.1); Sodium 139 mmol/L (135-145); eGFR > 60.00
--- NOTE | 2024-06-05 10:11 | W.PN.UPDATE ---
Update Note
Progress Note Update
it is likely NOT true that IV haldol does not cause eps. while there are some reports of this there are others to suggest that iv haldol DOES cause eps. have dc'ed iv haldol prn.
--- NOTE | 2024-06-05 11:37 | W.PN.NEURO.1 ---
Today's Communication / Plan
-
.
Subjective/Objective
Subjective Data
Date of Service: June 05, 2024.
Neurology Follow up Note.
Mr. Joe reports no complaints.
He has been afebrile and intermittently mildly hypertensive and tachycardic.
Routine EEG(05/24/2024)-diffuse excess beta activity.
CSF(05/27/2024) OCB/MBP-not checked.
C/T spine MRis-not done.
PMH: cannabis addiction
PSH: none
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
All:NKDA
ROS: neg foe headache, change in vision, edema, chest pain, rash
General: in NAD, restrained. Security guards are in the room.
Cardio: regular rhythm
Neuro:
Mental Status: Alert, oriented to self, location, month, year, date. Immadiate recall 3/3, delayed recall 3/3 with cues. Able to name and repeat, no hemineglect.
Cranial Nerves: Pupils are equally round and reactive to light. EOMs full. Visual johnson full to confrontation. No ptosis. No nystagmus. Face symmetric. Normal hearing AU. The palate elevated well. SCMs and traps 5/5. Tongue midline. No
dysarthria.
Motor: All limbs are antigravity.
Reflexes: No clonus at the ankles.
Coordination: no tremors or myoclonic movements
Gait: deferred
Assessment and Plan:
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 Differential diagnosis includes: infections, postictal, vascular, neoplastic, toxic.
II. Encephalopathy-clinically improved
III. Fever-resolved
-Seizure precautions.
-Brain, spinal MRI with mallorie
-CSF(OP/CP, HSV, OCB, MBP)
-ID follow up
-Continue Thiamin IV
-DVT prophylaxis.
I personally reviewed all radiology and labs along with past medical records pertinent to current medical problems. Total time spent in patient care is 40 minutes.
Thank you for allowing us to participate in the care of this patient. We will continue to follow. Please do not hesitate to contact us with any questions or concerns.
24h events: Mr. Joe reports no headache, change in vision, strength. No reported or documented seizures.
The patient was restarted on Acyclovir and started on Doxycycline.
CTA head showed no arteriographic abnormalities are demonstrated.
Brain MRI wo mallorie-cytotoxic lesion of the corpus callosum
No family history of INSURANCE AGENCY MANAGER demyelinating diseases.
Routine EEG(05/24/2024)-diffuse excess beta activity.
PMH: cannabis addiction
PSH: none
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
All:NKDA
ROS: neg foe headache, change in vision, edema, chest pain, rash
General: in NAD, restrained. Security guards are in the room.
Cardio: regular rhythm
Neuro:
Mental Status: Alert, oriented to self, location, month, year, not date. Unable to spell world backwards, do serial 7s. Able to name and repear, no hemineglect.
Cranial Nerves: Pupils are equally round and reactive to light. EOMs full. Visual johnson full to confrontation. No ptosis. No nystagmus. Face symmetric. Normal hearing AU. The palate elevated well. SCMs and traps 5/5. Tongue midline. No
dysarthria.
Motor: All limbs are antigravity.
Reflexes: No clonus at the ankles.
Coordination: no tremors or myoclonic movements
Gait: deferred
Assessment and Plan:
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 Corpus callosum lesions can disrupt communication between the hemispheres, which can lead to cognitive and psychiatric symptoms, including:�hallucinations, delusions, disorganized thought content
or speech, and inappropriate behavior.
Differential diagnosis includes: infectious(influenza, measles, herpes, mumps, adenovirus, varicella zoster, rotavirus, and SARS-CoV-2), postictal, demyelinating, neoplastic, toxic(antidepressants, antiseizure medications, antipsychotics,
chemotherapy).
II. Encephalopathy, resolved.
III. Fever-resolved
-Seizure precautions.
-C/T spine MRI w/wo mallorie due tole out INSURANCE AGENCY MANAGER demyelinating disease.
-Repeat brain MRI w/wo mallorie
-DVT prophylaxis.
I personally reviewed all radiology and labs along with past medical records pertinent to current medical problems. Total time spent in patient care is 40 minutes.
Thank you for allowing us to participate in the care of this patient. We will continue to follow. Please do not hesitate to contact us with any questions or concerns.
Objective Data
Vital Signs
Temp Pulse Resp BP Pulse Ox
36.8 C 97 17 129/83 99
06/05/24 07:00 06/05/24 07:00 06/05/24 07:00 06/05/24 07:00 06/05/24 07:00
Lab Results
06/05/24 06:28
06/05/24 06:28
Sodium 139 mmol/L (135-145) 06/05/24 06:28
Potassium 4.4 mmol/L (3.5-5.1) 06/05/24 06:28
BUN 14 mg/dl (9-20) 06/05/24 06:28
Glucose 102 mg/dl (70-99) H 06/05/24 06:28
Calcium 9.3 mg/dl (8.4-10.2) 06/05/24 06:28
Patient Allergies
No Known Allergies Allergy (Verified 05/31/24 13:37)
Vital Signs and Labs
-
Vital Signs and Labs:
Vital Signs
Temp Pulse Resp BP Pulse Ox
36.8 C 97 17 129/83 99
06/05/24 07:00 06/05/24 07:00 06/05/24 07:00 06/05/24 07:00 06/05/24 07:00
Lab Results
06/05/24 06:28
06/05/24 06:28
Sodium 139 mmol/L (135-145) 06/05/24 06:28
Potassium 4.4 mmol/L (3.5-5.1) 06/05/24 06:28
BUN 14 mg/dl (9-20) 06/05/24 06:28
Glucose 102 mg/dl (70-99) H 06/05/24 06:28
Calcium 9.3 mg/dl (8.4-10.2) 06/05/24 06:28
Medications
-
Medications:
Generic Name Dose Route Start Last Admin
Trade Name Freq PRN Reason Stop Dose Admin
Acetaminophen 650 mg 05/31/24 17:44
Acetaminophen 325 Mg Tablet PO 06/28/24 17:43
Q4HPRN PRN
mild pain/GRANT/temp> 100.4F
Aspirin 81 mg 06/01/24 08:00 06/05/24 08:42
Aspirin 81 Mg (Enteric Coated) Tablet PO 06/29/24 07:59 81 mg
DAILY PAT Administration
Benztropine Mesylate 1 mg 06/02/24 20:00 06/05/24 08:42
Benztropine 1 Mg Tablet PO 06/30/24 19:59 1 mg
BID PAT Administration
Bisacodyl 10 mg 05/31/24 17:44
Bisacodyl 10 Mg Rectal Suppository RECTAL 06/28/24 17:43
[id number] PRN
constipation
Fenofibrate 48 mg 05/31/24 22:00 06/04/24 21:40
Fenofibrate 48 Mg Tablet PO 06/28/24 21:59 48 mg
HS PAT Administration
Heparin Sodium 5,000 units 05/31/24 20:00 06/03/24 20:18
Heparin 5,000 Units/Ml 1 Ml Vial SC 06/28/24 19:59 5,000 units
Q12 PAT Administration
Pantoprazole Sodium 40 mg 06/04/24 08:00 06/05/24 08:42
Pantoprazole Sodium 40 Mg/10 Ml Vial IV 07/02/24 07:59 40 mg
BID PAT Administration
Polyethylene Glycol 17 grams 05/31/24 17:44
Polyethylene Glycol Powder 17 Grams Packet PO 06/28/24 17:43
DAILYPRN PRN
constipation
Risperidone 2 mg 06/02/24 14:53 06/04/24 21:41
Risperidone 1 Mg Tablet PO 06/28/24 21:59 2 mg
HS PAT Administration
Senna/Docusate Sodium 1 tablet 05/31/24 17:44
Docusate W/Senna (Chantel-Colace) Tablet PO 06/28/24 17:43
BIDPRN PRN
constipation
Sodium Chloride 0 flush 05/31/24 18:00
Sodium Chloride 0.9% (Flush) Syringe IV 06/28/24 17:59
PER PROTOCOL PAT
Sodium Chloride 10 ml 06/04/24 08:00 06/05/24 08:42
Sodium Chloride 0.9% (Preservative Free) 10 Ml Vial IV 07/02/24 07:59 10 ml
BID PAT Administration
Sucralfate 1 gm 06/04/24 11:30 06/05/24 08:47
Sucralfate (Carafate) 1 Gm/10 Ml Cup PO 07/02/24 11:29 1 gm
ACHS PAT Administration
Home Medications
-
Home Medications
aspirin 81 mg tablet,delayed release 81 mg PO DAILY #30 tabs 05/28/24
fenofibrate nanocrystallized 48 mg tablet 48 mg PO HS #30 tabs 05/28/24
doxycycline hyclate 100 mg capsule 100 mg PO Q12H Infection 05/31/24
risperidone 3 mg tablet 3 mg PO HS Neurological Condition 05/31/24
--- NOTE | 2024-06-05 12:07 | W.PN.UPDATE ---
Update Note
Progress Note Update
patient seen chart reviewed. patient was rather quiet. he answered all of the questions i asked him with a one or two word answer or by shaking his head. he continues to say he has no hx of psychotic or affective symptoms. he has not been
agitated or requiring any type of prn medication. despite this he remains in restraints as per [facility] to which i would offer an objection ( i intend to speak to our contamination consultant about this policy..i do not believe inmates are routinely shackled in the penitentiary).
the patient does continue to have a tremor of his left arm. whether this is tardive dystonia, td not clear but i feel he should be given a trial off antipsychotics including haldol which CAN cause eps when given IV. see my note prior to this one.
would cut back risperdal to one mg today and monitor. continue cogentin.
[2024-06-05] MEDS: MIRALAX 17 GRAMS PO ×2 (12:33→16:07)
[2024-06-05] MEDS: SENOKOT-S 1 TABLET PO (12:33)
--- NOTE | 2024-06-05 13:04 | W.PN.HOSP.TC ---
Today's Communication/Plan
-
Reduce Risperdal; continue cogentin
MRI as per neuro
PPI IV
Adv Diet
Assessment / Plan
Assessment / Plan
HPI: 39-year-old male unknown past medical history presenting from senior care for altered mental status once again.
He was recently admitted from 05/23 to 05/28 with acute metabolic encephalopathy and rhabdomyolysis secondary to right wrist and left ankle cellulitis.� He was treated with IV fluids and IV antibiotics transitioned to doxycycline as per ID.� There was
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
He returned due to worsening mental status with now decreased oral intake.�No seizure activity noted.�
In the ED, patient was tachycardic. Labs show leukocytosis, hypernatremia with sodium of 149. Creatinine of 2. Rhabdomyolysis with CK of 3400 and transaminitis.� Patient clinically hypovolemic with recurrent rhabdomyolysis.�Treated with IV fluids
for hypernatremia, MIRIAM and rhabdomyolysis.
Right wrist swelling appeared to have improved although still swollen with decreased range of motion and tenderness to palpation and warm.
On DOA, should be the last day of doxycycline.�Vancomycin/ceftriaxone restarted.�
A/P:
# L hand spasm/myoclonus/dystonia, unclear etiology
Possibly tardive dyskinesia, drug-induced dystonia
Appears to slightly have improved today
check EEG�unremarkable
Neuro CS
Psych eval
Reduce Risperdal further
Continue Cogentin
Avoid Haldol
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
# Possible sepsis POA (leucocytosis and tachycardia)
WASTE HAND on doxycycline (last dose was on 05/31)
ceftriaxone and vancomycin stopped by ID�does not appear to be infection related
Tylenol prn for fever
See plan below
Monitor fever curve, white count, no resources time
Leukocytosis most likely reactive
CT angio head: Cytotoxic lesion of the corpus callosum - f/u neuro recs; no noted abn on ct head
Neuro ordered: Brain, spinal MRI with mallorie
#Coffee Ground emesis
-likely drug induced esophagitis from recent doxycycline and asa
-CBC remains stable
- PPI BID IV
-Carafate 1gm suspension qid
-trend cbc
-hold on egd, monitoring further bleeding, CBC
-ADAT - Reg diet
-Would make sure head of bed at least 45 degrees at all times.
-Times a meal make sure head of bed at 90 degrees and keep at least 45 to 90 degrees for 2 hours after meals, given patient in 4 point restraints as mandated by [facility].
#MIRIAM
#hypernatremia
resolved with IVF - stop ivf and monitor
# Mild rhabdo, ?from L hand spasm
CPK 3000, cont to trend CPK
stop ivf
-improved
# Chronic transaminitis
Recent Abd US without acute intra-abdominal process
Cont to follow LFT
# HLD
cont fenofibrate
# anxiety
cont risperidone
DVT prophylaxis-heparin sq on hold due to coffee ground emesis - cont to monitor cbc and if stable, can resume
CODE status-full code
Total time spent on today's encounter was 50 minutes which included time spent in counseling the patient/family regarding diagnosis and treatment plan as listed above, goals of care, and symptom management. Case was discussed with nursing staff,
specialists, and care coordinators/case management. All labs and imaging personally reviewed by me. Remainder the time spent in detailed review of previous records, lab data, imaging, and other medical provider documentation.
Anticipated Discharge: > 48 hours
Subjective/Interval History
-
Date of Service: June 05, 2024
Mental status appears improved, tremors improving. Still fidgety, pulling on lines, tubes
Objective Data
-
Labs:
Laboratory Results
06/05/24
06:28
WBC 12.9 H
Hgb 13.3
Hct 39.2
Plt Count 391
Sodium 139
Potassium 4.4
Chloride 101
Carbon Dioxide 27
BUN 14
Creatinine 1.0
Glucose 102 H
Calcium 9.3
Vital Signs:
Vital Signs
Temp Pulse Resp BP Pulse Ox
98.3 F 97 17 129/83 99
06/05/24 07:00 06/05/24 07:00 06/05/24 07:00 06/05/24 07:00 06/05/24 07:00
I&O
06/04/24 06/05/24 06/06/24
06:59 06:59 06:59
Intake Total 1440 / 1440 840 / 840
Output Total 1100 / 1100 1250 / 1250
Balance 340 / 340 -410 / -410
Review of Systems
-
History Source: Patient
All other systems: Not reviewed unless documented
Physical Exam
-
General: Well Developed and No Apparent Distress
HEENT: Normocephalic, Atraumatic and Moist Mucous Membranes
Respiratory: Clear to Auscultation and Non Labored Respirations; Negative Accessory Resp Muscle Use
Cardiac: Regular Rhythm and S1/S2; Negative Murmur, Rub or Gallop
GI: Soft, Nontender, Nondistended and Normal Bowel Sounds; Negative Organomegaly
Rectal: Deferred by Provider
Musculoskeletal: No Clubbing, No Cyanosis and No Edema
Skin: Negative Rash
Neuro: Awake
Psych: Calm; Negative Intact Judgement/Insight
Data Reviewed
-
CT Scan: Image personally visualized and interpreted and Report Reviewed by me
Labs: Labs Reviewed by me
--- NOTE | 2024-06-05 14:42 | W.PN.GI.CBS2 ---
Addendum entered and electronically signed by Merlene Arias MD 06/05/24 16:57:
I saw and examined the patient.
The ASSISTANT TECHNICIAN or PA's note was reviewed and I agree with the note.
Comment: 39 yo M here with coffee ground emesis.
Likely due to gastritis/esophagitis 2/2 doxy/ASA.
No further episodes stable hb.
recommend protonix as below can do for 8 weeks outpatient
carafate with taper
gi will sign off pls call with ?s
Original Note:
Today's Communication / Plan
-
Plan:suspect Doxy and ASA induced esophagitis/gastritis
no further vomiting
-Continue pantoprazole 40 mg IV twice daily transition to PO on discharge
-Carafate 1 g suspension 4 times daily with taper on discharge
last stool 06/01- pt unsure if any stool since that time-- will add Miralax daily as carafate may be constipating
-Trend CBC-- hbg stable at 13.3
-cont Hold on any endoscopic intervention for now unless signs of active bleeding or precipitous drop in hemoglobin
-advance to regular diet
-Would make sure head of bed at least 45 degrees at all times.
-Times a meal make sure head of bed at 90 degrees and keep at least 45 to 90 degrees for 2 hours after meals, given patient in 4 point restraints as mandated by [facility].
will sign off call if we can be of any further assistance
.
Assessment / Plan
-
39-year-old male who is currently incarcerated at [facility] since 05/20/2024 who was actually here at [facility] from 05/23/2024 through 05/28/2024 for change in mental status. He had an LP and treated empirically
with acyclovir. This was discontinued. He was seen by infectious disease and neurology. MRI of the brain that showed a 17 mm cytotoxic lesion in the corpus callosum and was started on aspirin 81 mg and fenofibrate. Statin could not be started
given his rhabdo. He also was treated for cellulitis with doxycycline until 05/31/2024. He returned back to [facility] on 05/31/2024 with again change in mental status and poor p.o. intake. He had involuntary spasms. He was on ceftriaxone
and vancomycin. Neurology is seeing him for questionable tardive dyskinesia versus drug-induced dystonia. Antibiotics were discontinued. On the evening of 06/03/2024 the patient vomited a large amount of coffee-ground emesis. I did speak to the
RN who was taking care of him over the weekend. She states that he was eating very well. He did not have any kind of complaints from a GI perspective. No signs of odynophagia or dysphagia. He has not had any melena. The patient would not speak
to me today however would not add in an appropriate manner. He denies any nausea, vomiting, odynophagia or dysphagia. In the setting of recent doxycycline use and aspirin it is possible that he has esophagitis, gastritis or ulceration. The
patient's hemoglobin has remained completely stable during this hospitalization. It is also the same as prior hospitalization. His BUN was elevated however in proportion to creatinine. After IV fluids this ratio was normalized. The patient was
given a bolus of Protonix 80 and remains on 40 mg IV twice daily. The patient is in 4 point restraints 2 leg shackles mandated by the [facility]. He was in 2 hand shackles mandated by the [facility]
however due to his cellulitis nursing asked for this to be changed to soft restraints for patient comfort. The patient has a 4 point restraint order at the mandate of [facility]. I did discuss with hotel operations manager and RN as
well as the 2 officers at bedside that I would recommend that the patient be had of bed at least 45 degrees.
Impression:
Coffee ground emesis x 1-> likely drug-induced esophagitis from recent use of doxycycline and aspirin. Patient was not eating or drinking much in correctional facility.
constipation
Left hand spasm/myoclonus/dystonia unclear etiology
Acute metabolic encephalopathy
MIRIAM
Mild AST elevation, likely secondary to rhabdo. negative recent ultrasound. Negative hepatitis studies. Patient immune to hepatitis A&B. labs improved
Rhabdomyolysis-> improving
Plan:suspect Doxy and ASA induced esophagitis/gastritis
no further vomiting
-Continue pantoprazole 40 mg IV twice daily transition to PO on discharge
-Carafate 1 g suspension 4 times daily with taper on discharge
last stool 06/01- pt unsure if any stool since that time-- will add Miralax daily as carafate may be constipating
-Trend CBC-- hbg stable at 13.3
-cont Hold on any endoscopic intervention for now unless signs of active bleeding or precipitous drop in hemoglobin
-advance to regular diet
-Would make sure head of bed at least 45 degrees at all times.
-Times a meal make sure head of bed at 90 degrees and keep at least 45 to 90 degrees for 2 hours after meals, given patient in 4 point restraints as mandated by [facility].
will sign off call if we can be of any further assistance
.
Subjective
Subjective
Date of Service: June 05, 2024
no further vomiting advancing to regular diet
Objective
Data Reviewed
Laboratory Data:
Laboratory Results
06/05/24 06:28
06/05/24 06:28
Laboratory Results
Magnesium 1.8 mg/dl (1.6-2.3) 06/05/24 06:28
Total Bilirubin 0.7 mg/dl (0.2-1.3) 06/03/24 06:12
AST 58 U/L (17-59) 06/03/24 06:12
ALT 75 U/L (0-50) H 06/03/24 06:12
Alkaline Phosphatase 62 U/L (38-126) 06/03/24 06:12
Vital Signs and I&O:
Vital Signs
Temp Pulse Resp BP Pulse Ox
98.3 F 97 17 129/83 99
06/05/24 07:00 06/05/24 07:00 06/05/24 07:00 06/05/24 07:00 06/05/24 07:00
I&O
06/04/24 06/05/24 06/06/24
06:59 06:59 06:59
Intake Total 1440 / 1440 840 / 840
Output Total 1100 / 1100 1250 / 1250
Balance 340 / 340 -410 / -410
Physical Exam
Physical Exam
HEENT: Anicteric and Moist mucous membranes
Cardiology: Normal Sinus Rhythm
Pulmonary: Clear
GI: Soft, Non Distended and Tender
Extremities: No Edema
Neuro: Non Focal
[2024-06-05 15:00] VITALS: BP 159/98
[2024-06-05] MEDS: TRICOR 48 MG PO (21:06)
[2024-06-05] MEDS: RISPERDAL 1 MG PO (21:06)
[2024-06-05 23:00] VITALS: BP 126/78
--- NOTE | 2024-06-05 23:35 | PTCARENOTE ---
Pt here from [facility], restrained with handcuffs on b/l LE and R wrist. Our soft restraint on the L arm. Order d/c at 23:59. PRODUCTION TECHNICIAN made aware and obtained new order for L arm soft restraint. Order placed 06/06/2024 at 00:16,
to start 23:59. Order to 23:59 06/06/2024. Skin intact and checked q2h. Will continue to monitor.
[2024-06-06 06:57] LABS: Hemoglobin 14.1 g/dL (13.0-18.0); Mean Corp Hgb Conc. 33.6 g/dL (33.0-37.0); Mean Corpuscular Hgb 28.9 pg (27.0-31.0); Mean Corpuscular Volume 86.1 fL (80.0-94.0); Mean Platelet Volume 10.5 fL (7.4-10.4); Platelet Count 490 10^3/uL (130-400); Red Blood Cell Count 4.88 10^6/uL (4.70-6.10); Red Cell Dist. Width 13.1 % (11.5-14.5); White Blood Cell Count 12.6 10^3/uL (4.8-10.8)
[2024-06-06 07:12] LABS: Blood Urea Nitrogen 16 mg/dl (9-20); Calcium 9.9 mg/dl (8.4-10.2); Carbon Dioxide 27 mmol/L (22-30); Chloride 100 mmol/L (98-107); Estimated Creatinine Clearance 90 ml/min; Glucose 115 mg/dl (70-99); Potassium 4.9 mmol/L (3.5-5.1); Sodium 142 mmol/L (135-145); eGFR > 60.00
[2024-06-06] MEDS: NSS (PRESERVATIVE FREE) 10 ML IV ×2 (08:03→20:30)
[2024-06-06] MEDS: CARAFATE SUSPENSION 1 GM PO ×4 (08:03→22:48)
[2024-06-06] MEDS: MIRALAX 17 GRAMS PO (08:03)
[2024-06-06] MEDS: ASPIR LOW (ENTERIC COATED) 81 MG PO (08:04)
[2024-06-06] MEDS: COGENTIN 1 MG PO ×2 (08:04→20:31)
[2024-06-06] MEDS: PROTONIX IV 40 MG IV ×2 (08:04→20:30)
[2024-06-06 08:43] VITALS: BP 133/85
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
[2024-06-06] MEDS: ZYPREXA ZYDIS (ORALLY DISINTEGRATING) 5 MG PO ×2 (12:38→21:52)
--- NOTE | 2024-06-06 13:01 | CM ---
Reviewed chart, patient getting agitated, pulling at catheter. Soft limb restraints in place along with handcuffs.
Plan: Case management will continue to follow and assist with discharge planning. Back to [facility] when stable.
--- NOTE | 2024-06-06 14:16 | W.PN.HOSP.TC ---
Today's Communication/Plan
-
Stop risperdal, start zeprexa/zydis
Continue Cogentin
MRI but most likely cannot tolerate at this time
PPI BID, carafate
Assessment / Plan
Assessment / Plan
HPI: 39-year-old male unknown past medical history presenting from [facility] for altered mental status once again.
He was recently admitted from 05/23 to 05/28 with acute metabolic encephalopathy and rhabdomyolysis secondary to right wrist and left ankle cellulitis.� He was treated with IV fluids and IV antibiotics transitioned to doxycycline as per ID.� There was
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
He returned due to worsening mental status with now decreased oral intake.�No seizure activity noted.�
In the ED, patient was tachycardic. Labs show leukocytosis, hypernatremia with sodium of 149. Creatinine of 2. Rhabdomyolysis with CK of 3400 and transaminitis.� Patient clinically hypovolemic with recurrent rhabdomyolysis.�Treated with IV fluids
for hypernatremia, MIRIAM and rhabdomyolysis.
Right wrist swelling appeared to have improved although still swollen with decreased range of motion and tenderness to palpation and warm.
On DOA, should be the last day of doxycycline.�Vancomycin/ceftriaxone restarted.�
A/P:
# L hand spasm/myoclonus/dystonia, unclear etiology
Possibly tardive dyskinesia, drug-induced dystonia
check EEG�unremarkable
Neuro CS
Psych eval
Stop risperdal, start zeprexa/zydis
Continue Cogentin
Avoid Haldol
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
# Possible sepsis POA (leucocytosis and tachycardia)
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
ceftriaxone and vancomycin stopped by ID�does not appear to be infection related
Tylenol prn for fever
See plan below
Monitor fever curve, white count, no resources time
Leukocytosis most likely reactive
CT angio head: Cytotoxic lesion of the corpus callosum - f/u neuro recs; no noted abn on ct head
Neuro ordered: Brain, spinal MRI with mallorie
#Underlying Pscyh issues
-unclear underlying reason for being on risperdal
-start on seroquel
-Psych seeking collateral from family
#Coffee Ground emesis
-likely drug induced esophagitis from recent doxycycline and asa
-CBC remains stable
-Continue pantoprazole 40 mg IV twice daily transition to PO on discharge - can do 8 weeks total
-Carafate 1 g suspension 4 times daily with taper on discharge
-trend cbc
-hold on egd, monitoring further bleeding, CBC
-ADAT - Reg diet
-Would make sure head of bed at least 45 degrees at all times.
-Times a meal make sure head of bed at 90 degrees and keep at least 45 to 90 degrees for 2 hours after meals, given patient in 4 point restraints as mandated by [facility].
#MIRIAM
#hypernatremia
resolved with IVF - stop ivf and monitor
# Mild rhabdo, ?from L hand spasm
CPK 3000, cont to trend CPK
stop ivf
-improved
# Chronic transaminitis
Recent Abd US without acute intra-abdominal process
Cont to follow LFT
# HLD
cont fenofibrate
# anxiety
cont risperidone
DVT prophylaxis-heparin sq on hold due to coffee ground emesis - cont to monitor cbc and if stable, can resume
CODE status-full code
Total time spent on today's encounter was 51 minutes which included time spent in counseling the patient/family regarding diagnosis and treatment plan as listed above, goals of care, and symptom management. Case was discussed with nursing staff,
specialists, and care coordinators/case management. All labs and imaging personally reviewed by me. Remainder the time spent in detailed review of previous records, lab data, imaging, and other medical provider documentation.
Anticipated Discharge: > 48 hours
Subjective/Interval History
-
Date of Service: June 06, 2024
erratic movements this am
Objective Data
-
Labs:
Laboratory Results
06/06/24
06:10
WBC 12.6 H
Hgb 14.1
Hct 42.0
Plt Count 490 H D
Sodium 142
Potassium 4.9
Chloride 100
Carbon Dioxide 27
BUN 16
Creatinine 1.2
Glucose 115 H
Calcium 9.9
Vital Signs:
Vital Signs
Temp Pulse Resp BP Pulse Ox
98.0 F 128 18 133/85 99
06/06/24 08:43 06/06/24 08:43 06/06/24 08:43 06/06/24 08:43 06/06/24 08:43
I&O
06/05/24 06/06/24 06/07/24
06:59 06:59 06:59
Intake Total 840 / 840 480 / 480
Output Total 1250 / 1250
Balance -410 / -410 480 / 480
Review of Systems
-
History Source: Patient
All other systems: Not reviewed unless documented
Data Reviewed
-
CT Scan: Image personally visualized and interpreted and Report Reviewed by me
Labs: Labs Reviewed by me
[2024-06-06 15:11] VITALS: BP 140/85
[2024-06-06] MEDS: TRICOR 48 MG PO (21:52)
[2024-06-07 00:09] VITALS: BP 132/85
[2024-06-07 07:00] VITALS: BP 152/115
[2024-06-07 07:08] LABS: Hematocrit 41.4 % (39.0-52.0); Hemoglobin 13.9 g/dL (13.0-18.0); Mean Corp Hgb Conc. 33.6 g/dL (33.0-37.0); Mean Corpuscular Hgb 29.3 pg (27.0-31.0); Mean Corpuscular Volume 87.2 fL (80.0-94.0); Mean Platelet Volume 10.2 fL (7.4-10.4); Platelet Count 414 10^3/uL (130-400); Red Blood Cell Count 4.75 10^6/uL (4.70-6.10); White Blood Cell Count 9.2 10^3/uL (4.8-10.8)
[2024-06-07 07:47] LABS: Blood Urea Nitrogen 20 mg/dl (9-20); Calcium 9.6 mg/dl (8.4-10.2); Carbon Dioxide 30 mmol/L (22-30); Chloride 100 mmol/L (98-107); Estimated Creatinine Clearance 90 ml/min; Glucose 104 mg/dl (70-99); Potassium 4.4 mmol/L (3.5-5.1); Sodium 140 mmol/L (135-145); eGFR > 60.00
[2024-06-07] MEDS: COGENTIN 1 MG PO ×2 (08:47→19:46)
[2024-06-07] MEDS: ASPIR LOW (ENTERIC COATED) 81 MG PO (08:47)
[2024-06-07] MEDS: MIRALAX 17 GRAMS PO (08:47)
[2024-06-07] MEDS: CARAFATE SUSPENSION 1 GM PO ×4 (08:47→19:46)
[2024-06-07] MEDS: ZYPREXA ZYDIS (ORALLY DISINTEGRATING) 5 MG PO ×2 (08:47→19:45)
[2024-06-07] MEDS: PROTONIX IV 40 MG IV ×2 (08:48→19:46)
[2024-06-07] MEDS: NSS (PRESERVATIVE FREE) 10 ML IV ×2 (08:48→19:46)
[2024-06-07 10:48] VITALS: BMI 25.5
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
[2024-06-07] MEDS: ATIVAN 1 MG PO ×2 (12:34→19:46)
--- NOTE | 2024-06-07 14:16 | W.PN.HOSP.TC ---
Today's Communication/Plan
-
cont zyprexa
cogentin
resume hsq - f/u cbc
Assessment / Plan
Assessment / Plan
HPI: 39-year-old male unknown past medical history presenting from skilled nursing for altered mental status once again.
He was recently admitted from 05/23 to 05/28 with acute metabolic encephalopathy and rhabdomyolysis secondary to right wrist and left ankle cellulitis.� He was treated with IV fluids and IV antibiotics transitioned to doxycycline as per ID.� There was
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
He returned due to worsening mental status with now decreased oral intake.�No seizure activity noted.�
In the ED, patient was tachycardic. Labs show leukocytosis, hypernatremia with sodium of 149. Creatinine of 2. Rhabdomyolysis with CK of 3400 and transaminitis.� Patient clinically hypovolemic with recurrent rhabdomyolysis.�Treated with IV fluids
for hypernatremia, MIRIAM and rhabdomyolysis.
Right wrist swelling appeared to have improved although still swollen with decreased range of motion and tenderness to palpation and warm.
On DOA, should be the last day of doxycycline.�Vancomycin/ceftriaxone restarted.�
A/P:
# L hand spasm/myoclonus/dystonia, unclear etiology
Possibly tardive dyskinesia, drug-induced dystonia
check EEG�unremarkable
Neuro CS
Psych eval
Stop risperdal, start zeprexa/zydis
Continue Cogentin
Avoid Haldol
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
# Possible sepsis POA (leucocytosis and tachycardia)
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
ceftriaxone and vancomycin stopped by ID�does not appear to be infection related
Tylenol prn for fever
See plan below
Monitor fever curve, white count, no resources time
Leukocytosis most likely reactive
CT angio head: Cytotoxic lesion of the corpus callosum - f/u neuro recs; no noted abn on ct head
Neuro ordered: Brain, spinal MRI with mallorie if can tolerate - most likely needs sedation wit this
#Underlying Pscyh issues
-unclear underlying reason for being on risperdal
-start on zyprexa
-Psych seeking collateral from family
#Coffee Ground emesis
-likely drug induced esophagitis from recent doxycycline and asa
-CBC remains stable
-Continue pantoprazole 40 mg IV twice daily transition to PO on discharge - can do 8 weeks total
-Carafate 1 g suspension 4 times daily with taper on discharge
-trend cbc
-hold on egd, monitoring further bleeding, CBC
-ADAT - Reg diet
-Would make sure head of bed at least 45 degrees at all times.
-Times a meal make sure head of bed at 90 degrees and keep at least 45 to 90 degrees for 2 hours after meals, given patient in 4 point restraints as mandated by [facility].
# Leukocytosis�most likely reactive
� Trending down
#MIRIAM
#hypernatremia
resolved with IVF - stop ivf and monitor
# Mild rhabdo, ?from L hand spasm
CPK 3000, cont to trend CPK
stop ivf
-improved
# Chronic transaminitis
Recent Abd US without acute intra-abdominal process
Cont to follow LFT
# HLD
cont fenofibrate
# anxiety
cont risperidone
DVT prophylaxis-heparin sq
CODE status-full code
Anticipated Discharge: > 48 hours
Subjective/Interval History
-
Date of Service: June 07, 2024
erratic speech
Objective Data
-
Labs:
Laboratory Results
06/07/24
06:52
WBC 9.2
Hgb 13.9
Hct 41.4
Plt Count 414 H
Sodium 140
Potassium 4.4
Chloride 100
Carbon Dioxide 30
BUN 20
Creatinine 1.2
Glucose 104 H
Calcium 9.6
Vital Signs:
Vital Signs
Temp Pulse Resp BP Pulse Ox
98.3 F 96 17 152/115 100
06/07/24 07:00 06/07/24 07:00 06/07/24 07:00 06/07/24 07:00 06/07/24 07:00
I&O
06/06/24 06/07/24 06/08/24
06:59 06:59 06:59
Intake Total 480 / 480 1320 / 1320
Output Total 1500 / 1500
Balance 480 / 480 -180 / -180
Review of Systems
-
History Source: Patient
All other systems: Not reviewed unless documented
Physical Exam
-
General: Well Developed and No Apparent Distress
HEENT: Normocephalic, Atraumatic and Moist Mucous Membranes
Respiratory: Clear to Auscultation and Non Labored Respirations; Negative Accessory Resp Muscle Use
Cardiac: Regular Rhythm and S1/S2; Negative Murmur, Rub or Gallop
GI: Soft, Nontender, Nondistended and Normal Bowel Sounds; Negative Organomegaly
Rectal: Deferred by Provider
Musculoskeletal: No Clubbing, No Cyanosis and No Edema
Skin: Negative Rash
Neuro: Awake
Psych: Calm; Negative Intact Judgement/Insight
Data Reviewed
-
CT Scan: Image personally visualized and interpreted and Report Reviewed by me
Labs: Labs Reviewed by me
[2024-06-07 15:00] VITALS: BP 131/81
[2024-06-07] MEDS: TRICOR 48 MG PO (19:46)
[2024-06-07] MEDS: HEPARIN 5000 UNITS SC (19:46)
[2024-06-07 23:37] VITALS: BP 139/83
[2024-06-08] MEDS: ATIVAN 1 MG PO ×2 (02:20→11:28)
[2024-06-08 07:00] VITALS: BP 149/84
[2024-06-08] MEDS: PROTONIX IV 40 MG IV ×2 (07:59→21:07)
[2024-06-08] MEDS: CARAFATE SUSPENSION 1 GM PO ×4 (08:00→21:09)
[2024-06-08] MEDS: COGENTIN 1 MG PO (08:00)
[2024-06-08] MEDS: ASPIR LOW (ENTERIC COATED) 81 MG PO (08:00)
[2024-06-08] MEDS: MIRALAX 17 GRAMS PO (08:00)
[2024-06-08] MEDS: ZYPREXA ZYDIS (ORALLY DISINTEGRATING) 5 MG PO (08:00)
[2024-06-08] MEDS: HEPARIN 5000 UNITS SC ×2 (08:01→21:10)
[2024-06-08] MEDS: NSS (PRESERVATIVE FREE) 10 ML IV ×2 (08:01→21:08)
--- NOTE | 2024-06-08 13:35 | W.PN.HOSP.TC ---
Today's Communication/Plan
-
med changes as per psychiatry
mri if neuro desires- will have to have patient more controlled with antipsychotics and/or sedatives
Assessment / Plan
Assessment / Plan
HPI: 39-year-old male unknown past medical history presenting from snf for altered mental status once again.
He was recently admitted from 05/23 to 05/28 with acute metabolic encephalopathy and rhabdomyolysis secondary to right wrist and left ankle cellulitis.� He was treated with IV fluids and IV antibiotics transitioned to doxycycline as per ID.� There was
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
He returned due to worsening mental status with now decreased oral intake.�No seizure activity noted.�
In the ED, patient was tachycardic. Labs show leukocytosis, hypernatremia with sodium of 149. Creatinine of 2. Rhabdomyolysis with CK of 3400 and transaminitis.� Patient clinically hypovolemic with recurrent rhabdomyolysis.�Treated with IV fluids
for hypernatremia, MIRIAM and rhabdomyolysis.
Right wrist swelling appeared to have improved although still swollen with decreased range of motion and tenderness to palpation and warm.
On DOA, should be the last day of doxycycline.�Vancomycin/ceftriaxone restarted.�
A/P:
# L hand spasm/myoclonus/dystonia, unclear etiology
Possibly tardive dyskinesia, drug-induced dystonia
check EEG�unremarkable
Neuro CS
Psych eval
Stop risperdal, start zeprexa/zydis
Continue Cogentin
Avoid Haldol
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
# Possible sepsis POA (leucocytosis and tachycardia)
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
ceftriaxone and vancomycin stopped by ID�does not appear to be infection related
Tylenol prn for fever
See plan below
Monitor fever curve, white count, no resources time
Leukocytosis most likely reactive
CT angio head: Cytotoxic lesion of the corpus callosum - f/u neuro recs; no noted abn on ct head
Neuro ordered: Brain, spinal MRI with mallorie if can tolerate - most likely needs sedation wit this
#Underlying Pscyh issues
-unclear underlying reason for being on risperdal
-start on zyprexa
-Psych seeking collateral from family
#Coffee Ground emesis
-likely drug induced esophagitis from recent doxycycline and asa
-CBC remains stable
-Continue pantoprazole 40 mg IV twice daily transition to PO on discharge - can do 8 weeks total
-Carafate 1 g suspension 4 times daily with taper on discharge
-trend cbc
-hold on egd, monitoring further bleeding, CBC
-ADAT - Reg diet
-Would make sure head of bed at least 45 degrees at all times.
-Times a meal make sure head of bed at 90 degrees and keep at least 45 to 90 degrees for 2 hours after meals, given patient in 4 point restraints as [facility].
# Leukocytosis�most likely reactive
� Trending down
#MIRIAM
#hypernatremia
resolved with IVF - stop ivf and monitor
# Mild rhabdo, ?from L hand spasm
CPK 3000, cont to trend CPK
stop ivf
-improved
# Chronic transaminitis
Recent Abd US without acute intra-abdominal process
Cont to follow LFT
# HLD
cont fenofibrate
# anxiety
cont risperidone
DVT prophylaxis-heparin sq
CODE status-full code
Anticipated Discharge: > 48 hours
Subjective/Interval History
-
Date of Service: June 08, 2024
Patient's mental status appears worse today
Objective Data
-
Vital Signs:
Vital Signs
Temp Pulse Resp BP Pulse Ox
98.2 F 105 17 149/84 98
06/08/24 07:00 06/08/24 07:00 06/08/24 07:00 06/08/24 07:00 06/08/24 07:00
I&O
06/07/24 06/08/24 06/09/24
06:59 06:59 06:59
Intake Total 1320 / 1320 680 / 680
Output Total 1500 / 1500 100 / 100
Balance -180 / -180 580 / 580
Review of Systems
-
History Source: Patient
All other systems: Not reviewed unless documented
Data Reviewed
-
CT Scan: Image personally visualized and interpreted and Report Reviewed by me
Labs: Labs Reviewed by me
--- NOTE | 2024-06-08 14:29 | W.PN.UPDATE ---
Update Note
Progress Note Update
Pt seen, alert, making eye contact, speech clear but disorganized, with bizarre/loose thought content. Affect mildly labile, inappropriate. Pt stated he is watching college football (which is on the TV), has brief periods of lucid conversation.
No EPS evident. Pt denies noticeable side effects. Reviewed Dr Flores's note from 06/06 regarding history of schizophrenia, many past admissions, non-compliance with medication and MJ use.
Imp: Schizophrenia, with disorganized thought/speech, tolerating switch from Risperidone to Zyprexa due to concern for EPS, mental status improving overall
Rec: continue Zyprexa dose titration; will eventually stop Cogentin if no further EPS- rarely prescribed with Zyprexa
Return to [facility] when medically stable; will continue mental health treatment there
will follow
[2024-06-08] MEDS: COGENTIN 0.5 MG PO (21:09)
[2024-06-08] MEDS: ZYPREXA ZYDIS (ORALLY DISINTEGRATING) 10 MG PO (21:09)
[2024-06-08] MEDS: TRICOR 48 MG PO (21:10)
[2024-06-08 23:30] VITALS: BP 155/94
[2024-06-09 06:16] LABS: Hematocrit 40.2 % (39.0-52.0); Hemoglobin 13.5 g/dL (13.0-18.0); Mean Corp Hgb Conc. 33.6 g/dL (33.0-37.0); Mean Corpuscular Volume 86.3 fL (80.0-94.0); Mean Platelet Volume 10.8 fL (7.4-10.4); Platelet Count 383 10^3/uL (130-400); Red Blood Cell Count 4.66 10^6/uL (4.70-6.10); Red Cell Dist. Width 12.9 % (11.5-14.5); White Blood Cell Count 8.1 10^3/uL (4.8-10.8)
[2024-06-09 06:42] LABS: Blood Urea Nitrogen 19 mg/dl (9-20); Calcium 9.5 mg/dl (8.4-10.2); Carbon Dioxide 28 mmol/L (22-30); Chloride 99 mmol/L (98-107); Estimated Creatinine Clearance 83 ml/min; Glucose 100 mg/dl (70-99); Potassium 4.6 mmol/L (3.5-5.1); Sodium 141 mmol/L (135-145); eGFR > 60.00
[2024-06-09 07:22] VITALS: BP 150/98
[2024-06-09] MEDS: ASPIR LOW (ENTERIC COATED) 81 MG PO (08:34)
[2024-06-09] MEDS: HEPARIN 5000 UNITS SC ×2 (08:34→21:45)
[2024-06-09] MEDS: COGENTIN 0.5 MG PO ×2 (08:34→21:48)
[2024-06-09] MEDS: CARAFATE SUSPENSION 1 GM PO ×4 (08:34→21:47)
[2024-06-09] MEDS: PROTONIX IV 40 MG IV ×2 (08:35→21:47)
[2024-06-09] MEDS: ZYPREXA ZYDIS (ORALLY DISINTEGRATING) 5 MG PO (08:35)
[2024-06-09] MEDS: MIRALAX 17 GRAMS PO (08:35)
[2024-06-09] MEDS: NSS (PRESERVATIVE FREE) 10 ML IV ×2 (08:36→21:46)
[2024-06-09] MEDS: ATIVAN 1 MG PO (12:03)
--- NOTE | 2024-06-09 14:55 | W.PN.HOSP.TC ---
Addendum entered and electronically signed by Jhonatan Brewster MD 06/09/24 16:28:
SIRS due to a non-infectious source
Original Note:
Today's Communication/Plan
-
Antipsychotics as per psychiatry�can be followed at [facility] at present
MRI brain, IV Ativan ordered
Assessment / Plan
Assessment / Plan
HPI: 39-year-old male unknown past medical history presenting from correction for altered mental status once again.
He was recently admitted from 05/23 to 05/28 with acute metabolic encephalopathy and rhabdomyolysis secondary to right wrist and left ankle cellulitis.� He was treated with IV fluids and IV antibiotics transitioned to doxycycline as per ID.� There was
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
He returned due to worsening mental status with now decreased oral intake.�No seizure activity noted.�
In the ED, patient was tachycardic. Labs show leukocytosis, hypernatremia with sodium of 149. Creatinine of 2. Rhabdomyolysis with CK of 3400 and transaminitis.� Patient clinically hypovolemic with recurrent rhabdomyolysis.�Treated with IV fluids
for hypernatremia, MIRIAM and rhabdomyolysis.
Right wrist swelling appeared to have improved although still swollen with decreased range of motion and tenderness to palpation and warm.
On DOA, should be the last day of doxycycline.�Vancomycin/ceftriaxone restarted.�
A/P:
# L hand spasm/myoclonus/dystonia, unclear etiology
Possibly tardive dyskinesia, drug-induced dystonia
check EEG�unremarkable
Neuro CS
Psych eval
Stop risperdal, start zeprexa/zydis
Continue Cogentin
Avoid Haldol
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
# Possible sepsis POA (leucocytosis and tachycardia)
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
ceftriaxone and vancomycin stopped by ID�does not appear to be infection related
Tylenol prn for fever
See plan below
Monitor fever curve, white count, no resources time
Leukocytosis most likely reactive
CT angio head: Cytotoxic lesion of the corpus callosum - f/u neuro recs; no noted abn on ct head
Neuro ordered: Brain, spinal MRI with mallorie - IV ativan ordered for study
#Underlying Pscyh issues
-unclear underlying reason for being on risperdal
-start on zyprexa
-Psych seeking collateral from family
#Coffee Ground emesis
-likely drug induced esophagitis from recent doxycycline and asa
-CBC remains stable
-Continue pantoprazole 40 mg IV twice daily transition to PO on discharge - can do 8 weeks total
-Carafate 1 g suspension 4 times daily with taper on discharge
-trend cbc
-hold on egd, monitoring further bleeding, CBC
-ADAT - Reg diet
-Would make sure head of bed at least 45 degrees at all times.
-Times a meal make sure head of bed at 90 degrees and keep at least 45 to 90 degrees for 2 hours after meals, given patient in 4 point restraints as [facility] by [facility].
# Leukocytosis�most likely reactive
� Trending down
#MIRIAM
#hypernatremia
resolved with IVF - stop ivf and monitor
# Mild rhabdo, ?from L hand spasm
CPK 3000, cont to trend CPK
stop ivf
-improved
# Chronic transaminitis
Recent Abd US without acute intra-abdominal process
improved
# HLD
cont fenofibrate
# anxiety
cont risperidone
DVT prophylaxis-heparin sq
CODE status-full code
Anticipated Discharge: 24 - 48 hours
Subjective/Interval History
-
Date of Service: June 09, 2024
no acute events
Objective Data
-
Labs:
Laboratory Results
06/09/24
04:37
WBC 8.1
Hgb 13.5
Hct 40.2
Plt Count 383
Sodium 141
Potassium 4.6
Chloride 99
Carbon Dioxide 28
BUN 19
Creatinine 1.3
Glucose 100 H
Calcium 9.5
Vital Signs:
Vital Signs
Temp Pulse Resp BP Pulse Ox
97.8 F 89 17 150/98 97
06/09/24 07:22 06/09/24 07:22 06/09/24 07:22 06/09/24 07:22 06/09/24 07:22
I&O
06/08/24 06/09/24 06/10/24
06:59 06:59 06:59
Intake Total 680 / 680 650 / 650
Output Total 100 / 100 350 / 350
Balance 580 / 580 300 / 300
Review of Systems
-
History Source: Patient
All other systems: Not reviewed unless documented
Physical Exam
-
General: Well Developed and No Apparent Distress
HEENT: Normocephalic, Atraumatic and Moist Mucous Membranes
Respiratory: Clear to Auscultation and Non Labored Respirations; Negative Accessory Resp Muscle Use
Cardiac: Regular Rhythm and S1/S2; Negative Murmur, Rub or Gallop
GI: Soft, Nontender, Nondistended and Normal Bowel Sounds; Negative Organomegaly
Rectal: Deferred by Provider
Musculoskeletal: No Clubbing, No Cyanosis and No Edema
Skin: Negative Rash
Neuro: Awake
Psych: Calm; Negative Intact Judgement/Insight
[2024-06-09 15:14] VITALS: BP 149/91
[2024-06-09] MEDS: ZYPREXA ZYDIS (ORALLY DISINTEGRATING) 10 MG PO (21:48)
[2024-06-09] MEDS: TRICOR 48 MG PO (21:48)
[2024-06-09 23:35] VITALS: BP 129/78
[2024-06-10 07:13] VITALS: BP 137/86
[2024-06-10] MEDS: COGENTIN 0.5 MG PO ×2 (08:05→21:33)
[2024-06-10] MEDS: MIRALAX 17 GRAMS PO (08:05)
[2024-06-10] MEDS: PROTONIX IV 40 MG IV ×2 (08:05→21:32)
[2024-06-10] MEDS: NSS (PRESERVATIVE FREE) 10 ML IV ×2 (08:05→21:32)
[2024-06-10] MEDS: ATIVAN 1 MG PO (08:06)
[2024-06-10] MEDS: ASPIR LOW (ENTERIC COATED) 81 MG PO (08:06)
[2024-06-10] MEDS: ZYPREXA ZYDIS (ORALLY DISINTEGRATING) 5 MG PO (08:06)
[2024-06-10] MEDS: HEPARIN 5000 UNITS SC ×2 (08:06→21:32)
[2024-06-10] MEDS: CARAFATE SUSPENSION 1 GM PO ×4 (08:08→21:46)
[2024-06-10 08:44] LABS: Hematocrit 40.4 % (39.0-52.0); Hemoglobin 13.5 g/dL (13.0-18.0); Mean Corp Hgb Conc. 33.4 g/dL (33.0-37.0); Mean Corpuscular Hgb 29.9 pg (27.0-31.0); Mean Corpuscular Volume 89.4 fL (80.0-94.0); Mean Platelet Volume 10.9 fL (7.4-10.4); Platelet Count 349 10^3/uL (130-400); Red Blood Cell Count 4.52 10^6/uL (4.70-6.10); White Blood Cell Count 6.9 10^3/uL (4.8-10.8)
[2024-06-10 09:10] LABS: Blood Urea Nitrogen 18 mg/dl (9-20); Calcium 9.3 mg/dl (8.4-10.2); Carbon Dioxide 28 mmol/L (22-30); Chloride 101 mmol/L (98-107); Estimated Creatinine Clearance 90 ml/min; Glucose 98 mg/dl (70-99); Potassium 4.4 mmol/L (3.5-5.1); Sodium 142 mmol/L (135-145); eGFR > 60.00
--- NOTE | 2024-06-10 14:39 | W.PN.HOSP.TC ---
Today's Communication/Plan
-
Follow-up psych recommendations for optimization of regimen
Assessment / Plan
Assessment / Plan
#Lefthand spasm/myoclonus/dystonia
-unclear etiology; possibly tardive dyskinesia versus drug-induced dystonia
-Had an EEG here that was unremarkable; Home Risperdal was discontinued
-On exam today his left hand was more freely mobile, no contracture or pain
-Neurology and psychiatry following
-Avoid Haldol
#Acute metabolic encephalopathy
-Differentials to altered mental state include sepsis versus psychiatric/TD/drug-induced response
-Patient was on doxycycline prior to arrival, completed course on 05/31; At this point feel it is less likely to be infectious
-CTA showed possible cytotoxic lesion of the corpus callosum, CT head without signs of this abnormality
-MRA brain and C-spine with contrast ordered, results pending
-Continue to trend CBC and temperature curve
-Monitor mental status clinically
#Underlying Pscyh issues
-unclear underlying reason for being on risperdal
-start on zyprexa
-Psych seeking collateral from family
#Coffee Ground emesis
-likely drug induced esophagitis from recent doxycycline and ASA
-Was started on twice daily PPI, planning for 8 weeks total
-Was started on Carafate 1 g 4 times daily, plan to improve DC
-CBC remains stable, no recurrence
-Continue to monitor
#Mild rhabdo from Left hand spasm
-Improved with IV fluids
-Continue to monitor
#Chronic transaminitis
-Recent Abd US without acute intra-abdominal process
-improved
#HLD
-cont fenofibrate
#Anxiety
-cont risperidone
DVT prophylaxis: heparin sq
Diet: Regular
CODE status: full code
Anticipated Discharge: 24 - 48 hours
Subjective/Interval History
-
Date of Service: June 10, 2024
Seen and examined at the bedside. No acute events overnight. AFVSS this morning. Remains in 4 point restraints
Leukocytosis has resolved. No fevers overnight.
History/ROS very limited by his psychiatric state
Objective Data
-
Labs:
Laboratory Results
06/10/24
06:58
WBC 6.9
Hgb 13.5
Hct 40.4
Plt Count 349
Sodium 142
Potassium 4.4
Chloride 101
Carbon Dioxide 28
BUN 18
Creatinine 1.2
Glucose 98
Calcium 9.3
Vital Signs:
Vital Signs
Temp Pulse Resp BP Pulse Ox
97.9 F 85 19 137/86 99
06/10/24 07:13 06/10/24 07:13 06/10/24 07:13 06/10/24 07:13 06/10/24 07:13
I&O
06/09/24 06/10/24 06/11/24
06:59 06:59 06:59
Intake Total 650 / 650 1200 / 1200
Output Total 350 / 350 200 / 200
Balance 300 / 300 1000 / 1000
Review of Systems
-
Unable to obtain full review of systems at this time due to: Acuity
Physical Exam
-
General: Well Nourished, No Apparent Distress and Comfortable
HEENT: Normocephalic, Atraumatic and Moist Mucous Membranes
Respiratory: Clear to Auscultation and Non Labored Respirations
Cardiac: Regular Rhythm and S1/S2; Negative Murmur, Rub or Gallop
GI: Soft, Nontender, Nondistended and Normal Bowel Sounds
Musculoskeletal: No Clubbing, No Cyanosis and No Edema
Skin: Warm and Dry; Negative Rash
Neuro: Awake, Alert, Oriented, Nonfocal/Grossly Intact and Central Nerve's Intact; Negative Tremors
Psych: Calm
Data Reviewed
-
Labs: Labs Reviewed by me and Discussed with Patient
[2024-06-10 15:11] VITALS: BP 155/93
--- NOTE | 2024-06-10 16:06 | CM ---
Reviewed chart, patient still requiring acute care. Will return to long term when stable.
Plan: Case management will continue to follow and assist with discharge planning. Correction when medically cleared.
[2024-06-10] MEDS: TRICOR 48 MG PO (21:33)
[2024-06-10] MEDS: ZYPREXA ZYDIS (ORALLY DISINTEGRATING) 10 MG PO (21:45)
[2024-06-10 23:30] VITALS: BP 135/94
--- NOTE | 2024-06-11 01:32 | PTCARENOTE ---
assumed care of pt at 2300- pt with two guards and is handcuffed to bed- vitals pox stable offers no complaints - sleeps when left undisturbed
[2024-06-11 07:26] LABS: Blood Urea Nitrogen 17 mg/dl (9-20); Calcium 9.6 mg/dl (8.4-10.2); Carbon Dioxide 32 mmol/L (22-30); Chloride 100 mmol/L (98-107); Creatine Phosphokinase 301 U/L (55-170); Estimated Creatinine Clearance 90 ml/min; Glucose 97 mg/dl (70-99); Potassium 4.4 mmol/L (3.5-5.1); Sodium 140 mmol/L (135-145); eGFR > 60.00
[2024-06-11 07:47] LABS: % Basophils 0.8 % (0-2); % Eosinophils 3.5 % (0-6); % Immature Granulocytes 0.2 % (0-0.5); % Lymphocytes 19.8 % (20.5-51.1); % Monocytes 10.7 % (1.7-9.3); Absolute Basophils 0.1 10^3/uL (0-0.2); Absolute Eosinophils 0.2 10^3/uL (0-0.7); Absolute Lymphocytes 1.3 10^3/uL (1.2-3.4); Absolute Monocytes 0.7 10^3/uL (0.1-0.6); Absolute Neutrophils 4.3 10^3/uL (1.4-6.5); Hematocrit 41.4 % (39.0-52.0); Hemoglobin 13.4 g/dL (13.0-18.0); Mean Corp Hgb Conc. 32.4 g/dL (33.0-37.0); Mean Corpuscular Hgb 28.3 pg (27.0-31.0); Mean Corpuscular Volume 87.3 fL (80.0-94.0); Mean Platelet Volume 10.6 fL (7.4-10.4); Nucleated Red Blood Cells % 0 % (-); Platelet Count 338 10^3/uL (130-400); Red Blood Cell Count 4.74 10^6/uL (4.70-6.10); Red Cell Dist. Width 12.9 % (11.5-14.5); White Blood Cell Count 6.6 10^3/uL (4.8-10.8)
[2024-06-11 07:58] VITALS: BP 148/97
[2024-06-11] MEDS: ASPIR LOW (ENTERIC COATED) 81 MG PO (08:09)
[2024-06-11] MEDS: NSS (PRESERVATIVE FREE) 10 ML IV (08:09)
[2024-06-11] MEDS: PROTONIX IV 40 MG IV (08:09)
[2024-06-11] MEDS: CARAFATE SUSPENSION 1 GM PO ×4 (08:09→21:00)
[2024-06-11] MEDS: MIRALAX PO (08:10)
[2024-06-11] MEDS: COGENTIN 0.5 MG PO (08:10)
[2024-06-11] MEDS: ZYPREXA ZYDIS (ORALLY DISINTEGRATING) 5 MG PO ×2 (08:10→20:59)
[2024-06-11] MEDS: HEPARIN 5000 UNITS SC ×2 (08:10→20:55)
[2024-06-11] MEDS: ATIVAN 2 MG IV (09:19)
--- NOTE | 2024-06-11 11:18 | PTCARENOTE ---
When RN assumed care of patient, [facility] had placed 4x forensic restraints on patient. Pt is oriented to time, place, but no situation. He denied any pain. RN provided pt with education on his medications, diagnosis and plan of care. RN noticed
area of skin break down on left anterior ankle and right wrist. RN had guards remove handcuffs on each limb so RN could apply Optifoam dressings for protection under all restraints. Pt went to brain/spine MRI, RN changed patients bed linens. Clean
urinal provided to patient. See MAR/flowsheets for further care details.
[2024-06-11 12:08] LABS: Urine Albumin Negative (Neg - Trace); Urine Bilirubin Negative (Negative); Urine Character Clear (Clear); Urine Color Yellow; Urine Glucose Negative (Negative); Urine Ketone Negative (Negative); Urine Leukocyte Negative (Negative); Urine Nitrite Negative (Negative); Urine Occult Blood Negative (Negative); Urine Specific Gravity 1.015 (<1.030); Urine Urobilinogen Negative (Neg - 1+); Urine pH 6.5 (5.0-9.0)
--- NOTE | 2024-06-11 12:33 | W.PN.HOSP.TC ---
Today's Communication/Plan
-
Follow-up MRI results
Monitor clinically
Follow-up with neuro/psych recs
Assessment / Plan
Assessment / Plan
#Lefthand spasm/myoclonus/dystonia
-unclear etiology; possibly tardive dyskinesia versus drug-induced dystonia
-Had an EEG here that was unremarkable; Home Risperdal was discontinued
-On exam today his left hand was more freely mobile, no contracture or pain
-Neurology and psychiatry following
-Avoid Haldol
#Acute metabolic encephalopathy
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
-Differentials to altered mental state include sepsis versus psychiatric/TD/drug-induced response
-Patient was on doxycycline prior to arrival, completed course on 05/31; At this point feel it is less likely to be infectious
-CTA showed possible cytotoxic lesion of the corpus callosum, CT head without signs of this abnormality
-MRI brain showed likely resolving cytotoxic lesion of corpus callosum; MRI spine unremarkable thus far
-Continue to trend CBC and temperature curve
-Monitor mental status clinically
#Underlying Pscyh issues
-unclear underlying reason for being on risperdal
-start on zyprexa
-Psych seeking collateral Hx from family
#Coffee Ground emesis
-likely drug induced esophagitis from recent doxycycline and ASA
-Was started on twice daily PPI, planning for 8 weeks total
-Was started on Carafate 1 g 4 times daily, plan to improve DC
-CBC remains stable, no recurrence
-Continue to monitor
#Mild rhabdo from Left hand spasm
-Resolved with IVF
#Chronic transaminitis
-Recent Abd US without acute intra-abdominal process
-improved
#HLD
-cont fenofibrate
#Anxiety
-cont risperidone
DVT prophylaxis: heparin sq
Diet: Regular
CODE status: full code
Anticipated Discharge: Within 24 hours
Subjective/Interval History
-
Date of Service: June 11, 2024
Seen and examined at bedside. No acute events overnight. AFVSS this morning.
Labs unremarkable with normalization of his CK level.
History limited by his psychiatric state.
Objective Data
-
Labs:
Laboratory Results
06/11/24
06:34
WBC 6.6
Hgb 13.4
Hct 41.4
Plt Count 338
Sodium 140
Potassium 4.4
Chloride 100
Carbon Dioxide 32 H
BUN 17
Creatinine 1.2
Glucose 97
Calcium 9.6
Vital Signs:
Vital Signs
Temp Pulse Resp BP Pulse Ox
97.8 F 106 16 148/97 96
06/11/24 07:58 06/11/24 07:58 06/11/24 07:58 06/11/24 07:58 06/11/24 07:58
I&O
06/10/24 06/11/24 06/12/24
06:59 06:59 06:59
Intake Total 1200 / 1200 1080 / 1080
Output Total 200 / 200 400 / 400
Balance 1000 / 1000 680 / 680
Review of Systems
-
Unable to obtain full review of systems at this time due to: Other (Psychiatric state)
Physical Exam
-
General: Well Nourished, No Apparent Distress and Comfortable
HEENT: Normocephalic, Atraumatic and Moist Mucous Membranes
Respiratory: Clear to Auscultation and Non Labored Respirations
Cardiac: Regular Rhythm and S1/S2
GI: Soft, Nontender, Nondistended and Normal Bowel Sounds
Musculoskeletal: No Clubbing, No Cyanosis, No Edema and Other (No contracture or atrophy)
Skin: Warm and Dry; Negative Rash
Neuro: Awake, Alert, Oriented and Nonfocal/Grossly Intact
Psych: Calm
Data Reviewed
-
Labs: Labs Reviewed by me and Discussed with Patient
[2024-06-11 15:15] VITALS: BP 128/84
[2024-06-11] MEDS: PROTONIX 40 MG PO (20:56)
[2024-06-11] MEDS: TRICOR 48 MG PO (20:57)
[2024-06-11] MEDS: ZYPREXA ZYDIS (ORALLY DISINTEGRATING) 10 MG PO (21:00)
--- NOTE | 2024-06-11 23:00 | PTCARENOTE ---
When RN received pt, 2 [facility] guards at bs and pt restrained with handcuffs on all 4 limbs. Pt not following directions at times and not oriented to surroundings. Pt knocking drinks and urinal over, bed linens and pillows throw on the floor by
patient. Bed lines changed d/t urine spilled or incontinent.
[2024-06-11 23:30] VITALS: BP 136/82
--- NOTE | 2024-06-12 04:17 | DOWNTIME ---
There was a [facility] Client Reimbursement Coordinator Downtime on 06/12/2024 from 0100 to 06/12/2024 at 0355. Downtime documentation of patient's care, including medication administrations, has been reconciled in the electronic record per guidelines. Refer to the
patient's paper chart under the miscellaneous tab to see printed paper medication records and downtime forms.
[2024-06-12 07:30] VITALS: BP 131/79
[2024-06-12] MEDS: CARAFATE SUSPENSION 1 GM PO ×2 (09:59→13:05)
[2024-06-12] MEDS: MIRALAX 17 GRAMS PO (09:59)
[2024-06-12] MEDS: PROTONIX 40 MG PO (09:59)
[2024-06-12] MEDS: ASPIR LOW (ENTERIC COATED) 81 MG PO (09:59)
[2024-06-12] MEDS: ZYPREXA ZYDIS (ORALLY DISINTEGRATING) 5 MG PO (09:59)
[2024-06-12] MEDS: HEPARIN 5000 UNITS SC (10:00)
--- NOTE | 2024-06-12 11:22 | W.PN.UPDATE ---
Update Note
Progress Note Update
patient seen chart reviewed. discussed w nursing and dr zhang. patient managed care provider reported patient seemed much better this am and was quite conversant during am care. the patient when i saw him was also more positive engaging with me in a give and
take discussion. presented him with his own hx of stopping meds using cannabis and relapsing. explained the [facility]'s potential plan to get him into psych hospital for stabilization and eventual return to the community. we also had a discussion
about Carlos Alberto which he was watching on TV....he has seen every [employer] movie and his favorite is [employer]. he did not disagree with the plan as suggested by [facility] psych nurse and expressed that he would like to be heading back to [facility]. he does
seem to me to be much improved w zyprexa 15 mg daily. i explained to him that zyprexa has much less in the way of eps. cogentin dose is o.5 mg bid would dc eventually. it would be my recommendation that as soon as patient medically cleared he
return to [facility] . they have a psychiatrist who is is going to file for a 304 which is a 90 day commitment to [facility]. will follow if he remains here
--- NOTE | 2024-06-12 11:31 | PTCARENOTE ---
Patient is pleasant and cooperative. Patient has no c/o pain, [address] Patient continues to remove clothes and sheets from bed.
--- NOTE | 2024-06-12 12:57 | W.PN.HOSP.TC ---
Today's Communication/Plan
-
Discharge
Assessment / Plan
Assessment / Plan
#Lefthand spasm/myoclonus/dystonia
-unclear etiology; possibly tardive dyskinesia versus drug-induced dystonia
-Had an EEG here that was unremarkable; Home Risperdal was discontinued
-On exam today his left hand was more freely mobile, no contracture or pain
-Neurology and psychiatry following
-Avoid Haldol
#Acute metabolic encephalopathy
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
-Differentials to altered mental state include sepsis versus psychiatric/TD/drug-induced response
-Patient was on doxycycline prior to arrival, completed course on 05/31; At this point feel it is less likely to be infectious
-CTA showed possible cytotoxic lesion of the corpus callosum, CT head without signs of this abnormality
-MRI brain showed likely resolving cytotoxic lesion of corpus callosum; MRI spine unremarkable thus far
-Continue to trend CBC and temperature curve
-Monitor mental status clinically
#Underlying Pscyh issues
-unclear underlying reason for being on risperdal
-start on zyprexa
-Psych seeking collateral Hx from family
#Coffee Ground emesis
-likely drug induced esophagitis from recent doxycycline and ASA
-Was started on twice daily PPI, planning for 8 weeks total
-Was started on Carafate 1 g 4 times daily, plan to improve DC
-CBC remains stable, no recurrence
-Continue to monitor
#Mild rhabdo from Left hand spasm
-Resolved with IVF
#Chronic transaminitis
-Recent Abd US without acute intra-abdominal process
-improved
#HLD
-cont fenofibrate
#Anxiety
-cont risperidone
DVT prophylaxis: heparin sq
Diet: Regular
CODE status: full code
Anticipated Discharge: Today
Subjective/Interval History
-
Date of Service: June 12, 2024
Seen and examined at the bedside. No acute events overnight. AFVSS this morning.
He seems much better and more able to participate in conversation. Mood was uplifted.
Denied any acute complaints
Objective Data
-
Vital Signs:
Vital Signs
Temp Pulse Resp BP Pulse Ox
97.7 F 60 14 131/79 100
06/12/24 07:30 06/12/24 07:30 06/12/24 07:30 06/12/24 07:30 06/12/24 07:30
I&O
06/11/24 06/12/24 06/13/24
06:59 06:59 06:59
Intake Total 1080 / 1080 1200 / 1200
Output Total 400 / 400 200 / 200
Balance 680 / 680 1000 / 1000
Review of Systems
-
History Source: Patient
All other systems: Reviewed and negative
Physical Exam
-
General: Well Nourished, No Apparent Distress and Comfortable
HEENT: Normocephalic, Atraumatic and Moist Mucous Membranes
Respiratory: Clear to Auscultation and Non Labored Respirations; Negative Wheezes, Rales or Rhonchi
Cardiac: Regular Rhythm and S1/S2; Negative Murmur, Rub or Gallop
GI: Soft, Nontender, Nondistended and Normal Bowel Sounds
Musculoskeletal: No Clubbing, No Cyanosis, No Edema and Other (No contracture)
Skin: Warm, Dry and Normal Turgor; Negative Rash
Neuro: AO x 3, Nonfocal/Grossly Intact and Central Nerve's Intact
Psych: Calm
--- NOTE | 2024-06-12 13:07 | W.DCSUMMARY ---
Discharge Summary
Discharge Data
Date of Admission: 05/31/24
Date of Discharge: 06/12/24
-
Pending Results: No
Hospital Course
39-year-old male with psychiatric disease, hyperlipidemia, H/O rhabdomyolysis that presented to the hospital with altered mental status, left hand contractions, and elevated CK level. Suspected extraparametal side effects from his psychotropic
regimen that included benzatropine and risperidone. Was seen by psychiatry and neurology. CT head on arrival showed potential cytotoxic lesion within the corpus callosum. CTA was without any large vessel occlusions or other significant vascular
disease findings. Had MRI brain and C-spine performed, showed likely resolving cytotoxic lesion of the corpus callosum. His home medication regimen was transition from risperidone to an olanzapine based. Will now take olanzapine 5 mg daily and 10
mg nightly. To follow-up with psychiatry at correctional facility, plan to discontinue benztropine in the future.
While hospitalized he did have an episode of coffee-ground emesis. Was started on IV Protonix and sucralfate while in the hospital. Was evaluated by gastroenterology, blood counts were stable and no indication for inpatient EGD. After discharge
should continue with Protonix 40 mg twice daily, sucralfate 1 g 4 times daily with plan to taper over 1 month. Can consider GI referral for recurrence, consideration of EGD.
Discharge Plan
-
Patient Disposition: [facility]
Discharge Diagnosis/Procedures: Extrapyramidal side effects/dystonia
Rhabdomyolysis
Condition: Good
Diet: No restrictions
Activity: No restrictions
Driving Restrictions: As prior to admission
Bathing Restrictions: None
Blood Work: None
Others Tests: None
Activity Restrictions/Additional Instructions:
Patient should have evaluation by psychiatrist following return to care home/custodial
Patient did also have evaluation by primary care physician
Instructions: Dystonia
Referrals:
[facility] [Family Provider] -
Additional Discharge Medication Instructions: STOP Risperidone
START olanzapine 5 mg daily, 10 mg nightly
START sucralfate 1 mL 4 times daily for 2 weeks then 1 mL twice daily for 2 weeks then stop
START pantoprazole 40 mg twice daily
Prescriptions:
New
sucralfate 100 mg/mL Suspension
See Rx Instructions .ROUTE .COMPLEX 30 Days Qty: 120 0RF
Rx Instructions:
1 mL PO QID x 2week
1 mL PO BID x 2week
pantoprazole 40 mg Tablet,Delayed Release (Dr/Ec)
40 mg PO BID 30 Days Qty: 60 0RF
olanzapine 5 mg Tablet,Disintegrating
5 mg PO DAILY 30 Days Qty: 30 0RF
olanzapine 5 mg Tablet,Disintegrating
10 mg PO HS 30 Days Qty: 60 0RF
Continued
aspirin 81 mg Tablet,Delayed Release (Dr/Ec)
81 mg PO DAILY Qty: 30 0RF
fenofibrate nanocrystallized 48 mg Tablet
48 mg PO HS Qty: 30 0RF
Discontinued
risperidone 3 mg Tablet
3 mg PO HS
doxycycline hyclate 100 mg capsule
100 mg PO Q12H
Discharge Orders:
Discharge Patient (As Directed); Ordered 06/12/24
Ordered By: John Agarwal
Discharge Date and Time
Print Language: LUXEMBOURGER
[2024-06-12] MEDS: ATIVAN 1 MG PO (13:35)
[2024-06-12] MEDS: ATIVAN 1 MG IV (13:49)
[2024-06-12] MEDS: NSS (PRESERVATIVE FREE) 0.5 ML IV (13:51)
[2024-06-12 15:30] VITALS: BP 150/90
--- NOTE | 2024-06-12 15:32 | CM ---
Spoke with RN who stated that patient is medically cleared for [phone]
Plan: Case management will continue to follow and assist with discharge planning. Patient is returning to half-way.
--- NOTE | 2024-06-12 15:34 | PTCARENOTE ---
RN attempted to call [facility] 5 times to give report, but no answer. RN also called main number and still no answer from dispensary.
== END 2024-06-12 16:55 | DRG 91 ==
LOC: 3 WEST ACU 16:27
PROVIDERS: Nurse Practitioner Family; Registered Nurse; ADMITTING PHYSICIAN Hospitalist; ATTENDING PHYSICIAN Internal Medicine; CONSULT PHYSICIAN Internal Medicine Gastroenterology; CONSULT PHYSICIAN Internal Medicine Infectious Disease; CONSULT PHYSICIAN Psychiatry & Neurology Neurology; CONSULT PHYSICIAN Psychiatry & Neurology Psychiatry; EMERGENCY PHYSICIAN Student in an Organized Health Care Education/Training Program
DX: G24.01 Drug induced subacute dyskinesia (principal); G93.41 Metabolic encephalopathy; K20.91 Esophagitis, unspecified with bleeding; M62.82 Rhabdomyolysis; N17.9 Acute kidney failure, unspecified; E87.0 Hyperosmolality and hypernatremia; R65.10 Systemic inflammatory response syndrome (SIRS) of non-infectious origin without acute organ dysfunction; L03.113 Cellulitis of right upper limb; T43.595A Adverse effect of other antipsychotics and neuroleptics, initial encounter; E86.0 Dehydration; E78.00 Pure hypercholesterolemia, unspecified; E87.5 Hyperkalemia; F41.9 Anxiety disorder, unspecified; D72.829 Elevated white blood cell count, unspecified; D75.839 Thrombocytosis, unspecified; R74.01 Elevation of levels of liver transaminase levels; F12.20 Cannabis dependence, uncomplicated; F20.9 Schizophrenia, unspecified; G25.3 Myoclonus; T39.015A Adverse effect of aspirin, initial encounter; T36.4X5A Adverse effect of tetracyclines, initial encounter; Z79.82 Long term (current) use of aspirin; Z78.1 Physical restraint status
CPT/HCPCS: 70450; 70553; 72156; 72157; 80048; 80053; 80202; 81003; 82248; 82550; 82962; 83735; 85014; 85018; 85025; 85027; 93005; 95816; 96361; 96374; 96376; 99284; A9575

== ENCOUNTER 2024-06-25 14:10 | Emergency (ER) | payer SELFPAY ==
[2024-06-25 14:13] VITALS: BP 132/90
--- NOTE | 2024-06-25 15:37 | W.PN.UPDATE ---
Update Note
Progress Note Update
Pt seen for 302 exam, being released from [facility] today. 302 alleges psychotic symptoms, though it states pt is mostly compliant with medication- Zyprexa. No actual threatening, aggressive, or self-injurious behavior reported. Pt has hospitalized
at from 05/23 to 06/12/24 for dystonia, rhabdomyolysis; pt was stabilized and discharged back to the [facility]. Pt has long history of Schizophrenia, with multiple hospitalizations. Pt has some mild persistent signs of psychosis, though
conversation is mostly clear/coherent/goal-directed. Pt has supports/services in [place]. Pt used the bathroom, ate lunch, asked for lotion for his dry skin.
Imp: Schizophrenia, chronic, fairly stable on Zyprexa. 302 is not upheld- pt does not meet behavior criteria- does not present an immediate danger to self or others, is basically able to care for self
Rec: Outpatient treatment- med mgt, therapy, case mgt
--- NOTE | 2024-06-25 15:54 | ED.GENMED ---
History of Present Illness
General
Chief Complaint: Crisis Evaluation
Source: patient and police
Exam Limitations: none
Time Seen by Provider: 06/25/24 15:33
Nursing documentation reviewed up to this point in time: agreed with
History of Present Illness
History of Present Illness:
39-year-old male with a past medical history of schizophrenia who presents to the emergency room from [facility] on a 302. Patient has been incarcerated and was released today from [facility]. Police were concerned for
persistent psychotic symptoms and brought him to the emergency room by 302 for involuntary psychiatric commitment. The patient says that he feels 'fine.' He has no physical complaints. He ate lunch here and has been watching TV since arrival. He
denies feeling suicidal or homicidal. He denies hearing any voices. He says that his plan after he is released is to stay at a hotel where he was living prior to incarceration. He says he occasionally uses marijuana but denies any drug or alcohol
use and has not used any marijuana since recent incarceration. He did have recent medical admission 05/31 until 06/12 for dystonia and rhabdomyolysis and was transitioned to Zyprexa and has been stable on Zyprexa since.
Past History
Past History
ED Past Medical History: None
ED Past Surgical History: None
Social History
Tobacco: Non-smoker
Alcohol: None
Review of Systems
Review of Systems
All Other Systems: ROS reviewed and negative except as documented in HPI and ROS
Respiratory: Denies trouble breathing
Cardiac: Denies chest pain
ABD/GI: Denies abdominal pain, nausea or vomiting
: Denies flank pain
Musculoskeletal: Denies neck pain or back pain
Neurological: Denies dizzy or headache
Psychiatric: Denies depression, suicidal or hallucinations
Phy Exam
Physical Exam
Physical Exam:
General: Awake, alert, oriented x3; no acute distress
Head: Normocephalic, atraumatic
Eyes: Conjunctiva normal, pupils equal round and reactive to light bilaterally
Throat: Airway intact, handling secretions
Neck: Trachea midline, supple without meningismus
Lungs: Clear to auscultation bilaterally, no wheezing, rales, rhonchi
Heart: Regular rate and rhythm, no murmurs, gallops, or rubs
Abd: Soft, non distended, nontender
Neuro: No gross deficits
Skin: no rash
Extremities: No edema in extremities, equal pulses in all extremities
Psych: 'Fine' mood, normal affect, fluid speech goal-directed and forward thinking with reasonable insight
Scores
Heart Failure Risk
Heart Failure Risk Score: Not Applicable
Heart Score for Chest Pain Patients
STEMI patient?: Not applicable
Withdrawal Assessment of Alcohol
Withdrawal Assessment Completed?: Not applicable
Course
Orders/Labs/Results
Orders:
Orders
06/25/24 15:52
Case Management Consult ONCE
Case Management Consult: Discharge Planning
Vital Signs
Initial and Last Documented VS:
Initial Vital Signs
Temp Pulse Resp BP Pulse Ox
36.7 C 78 18 132/90 100
06/25/24 14:13 06/25/24 14:13 06/25/24 14:13 06/25/24 14:13 06/25/24 14:13
Last Documented Vital Signs
Temp Pulse Resp BP Pulse Ox
36.7 C 78 18 132/90 100
06/25/24 14:13 06/25/24 14:13 06/25/24 14:13 06/25/24 14:13 06/25/24 14:13
MDM/Problems Addressed
Differential Diagnosis Includes:
Schizophrenia
MDM/Problems Addressed:
39-year-old male with history of schizophrenia presents to the emergency room on a 302 after being released from incarceration�there was apparently concern for persistent psychotic symptoms. Patient is calm and cooperative here with no complaints,
no violent behavior or aggressive behavior. Patient has no physical complaints. Seen by psychiatry and released from . He is requesting discharge, no indication for medical workup or admission. Will discharge in keeping with his wishes. I
did speak with case management to offer housing resources but patient says that he has a plan to stay at a hotel where he was living prior to incarceration.
*Critical Care Note
Total Time (30-74mins, 75-104mins- exclusive of procedures): Not Applicable
Patient Management
Discussion with other providers: Patient Sitter (Psychiatry) and Other (Case management)
ED Attending Note
-
Portions of this chart may have been created with voice recognition software.� Occasional wrong word or��sound alike� substitutions may have occurred due to the inherent limitations of voice recognition software.
Discharge Plan
Departure
Patient Disposition: Home (Routine Discharge)
Date of Disposition: 06/25/24
Time of Disposition: 16:04
Patient with high blood pressure during this ER visit?: No
Discharge Problem:
Schizophrenia
Instructions: Schizophrenia (DC)
Prescriptions:
No Action
aspirin 81 mg Tablet,Delayed Release (Dr/Ec)
81 mg PO DAILY Qty: 30 0RF
fenofibrate nanocrystallized 48 mg Tablet
48 mg PO HS Qty: 30 0RF
sucralfate 100 mg/mL Suspension
See Rx Instructions .ROUTE .COMPLEX 30 Days Qty: 120 0RF
Rx Instructions:
1 mL PO QID x 2week
1 mL PO BID x 2week
pantoprazole 40 mg Tablet,Delayed Release (Dr/Ec)
40 mg PO BID 30 Days Qty: 60 0RF
olanzapine 5 mg Tablet,Disintegrating
5 mg PO DAILY 30 Days Qty: 30 0RF
olanzapine 5 mg Tablet,Disintegrating
10 mg PO HS 30 Days Qty: 60 0RF
Referrals:
[facility] [Family Provider] -
Activity Restrictions/Additional Instructions:
Thank you for visiting the Emergency Department at [facility].
1. Please schedule a follow up appointment as directed. Call first thing tomorrow morning to make an appointment.
2. If indicated, please take your medications as instructed and indicated on discharge paperwork.
3. If any of your symptoms do not improve, or persist, or become more severe within 6-12 hours, please return to the emergency department for further care.
4. Please return to the emergency department if you develop a headache, neck pain/stiffness, fever greater than 100.4F, chest pain, shortness of breath, persistent nausea, vomiting, slurred speech, difficulty walking, numbness/tingling, weakness,
signs of infection or any other symptoms that are worrisome to you.
Please call [phone] if you have any questions.
Interventions
Interventions:
*Risk Screen - Suicide Last Done: 06/25/24 14:19
*General Assessment Last Done: 06/25/24 14:19
*Neglect/Abuse Screening Last Done: 06/25/24 14:19
*ED COVID-19 Vaccine History Last Done: 06/25/24 14:19
*Nursing Disposition Last Done: 06/25/24 18:11
ED-Psychological Assessment Last Done: 06/25/24 14:22
Discharge Date and Time
Discharge Date/Time: 06/25/24 18:12
Print Language: DANISH
--- NOTE | 2024-06-25 16:08 | CM ---
Addendum entered by Nessa Fountain RN 06/25/24 17:35:
Patient's mother is unable to drive this evening to pick patient up. Plan to provide patient with Lyft ride to patient's mother's home in [place].
Addendum entered by Nessa Fountain RN 06/25/24 16:18:
CM spoke with patient who was unable to provide the name of the hotel that he was staying at prior to his incarceration. Patient stated that he has some place in [place] to stay and he needs a ride there. CM offered assistance for transportation
to his mother's home, but patient refused. CM will continue to follow as needed.
Original Note:
CM was consulted for assistance with homelessness. CM spoke with Jennifer in Crisis and she will attempt to call patient's mother who lives in [place].
== END 2024-06-25 18:12 | disposition home or self-care (01) ==
LOC: EMR 14:10
PROVIDERS: EMERGENCY PHYSICIAN Emergency Medicine
DX: F20.9 Schizophrenia, unspecified (principal)
CPT/HCPCS: 99283